=== PATIENT | male | born 1930 | race Caucasian/White ===

== ENCOUNTER → 2016-06-06 | Outpatient (CLI) | payer OTHER, MEDICARE ==
[~2016-06-06] MED LIST: ALPR0.25 PO; AMLO2.5T PO; ANT25 PO; ASPI81TA28 PO; B-COCAP2 PO; B-COTAB18 PO; CHOND PO; COEN1CAP17 PO; ESCI10TA17 PO; FINA5TAB PO; FLUT0.0529 NEB; FLUT0.15 NAE; FLUT50SP14 NAE; GLUCOSAMINE PO; GLUCTAB7 PO; ISOS30TA3 PO; MECL1TAB42 PO; METO25TA56 PO; OMEP40CA41 PO; PRAV20TA PO; PRLSR20 PO; SAW80CAP PO; TAMS0.4C38 PO; XNX25 PO
[2016-06-06 17:24] LABS: URINE APPEARANCE CLEAR (CLEAR); URINE BILIRUBIN NEG (NEG); URINE COLOR DK YELLOW; URINE NITRITE NEG (NEG); URINE SPECIFIC GRAVITY 1.024 (1.000-1.030); UROBILINOGEN NEG (NEG)
[2016-06-06 17:37] LABS: MANUAL MICROSCOPIC REQUIRED? NO; REVIEW REQ? NO
== END | disposition home or self-care (01) ==
LOC: C.LABBC 14:45
PROVIDERS: ATTEND Internal Medicine
DX: M54.5 Low back pain (principal)

== ENCOUNTER → 2016-06-26 | Outpatient (CLI) | payer OTHER, MEDICARE ==
[2016-06-26 11:25] LABS: AST/SGOT 16 U/L (15-37); BLOOD UREA NITROGEN 16 mg/dl (7-18); BUN/CREATININE RATIO 13.1 (10-20); CARBON DIOXIDE 31 mmol/L (21-32); CHLORIDE 110 mmol/L (98-107); ESTIMATED AVERAGE GLUCOSE 128 mg/dl; GLUCOSE 104 mg/dl (70-99); HA1C FLAG Normal (Normal); POTASSIUM 4.6 mmol/L (3.5-5.1); SODIUM 145 mmol/L (136-145)
[2016-06-26 11:35] LABS: ALB/GLOB RATIO 1.4 (0.9-2); ALKALINE PHOSPHATASE 68 U/L (45-117); ALT/SGPT 22 U/L (12-78); CHOLESTEROL 111 mg/dl (0-200); CHOLESTEROL/HDL RATIO 2.2; HDL CHOLESTEROL 50 mg/dl; LDL CHOLESTEROL CALCULATED 47 mg/dl; TRIGLYCERIDES 71 mg/dl (0-150); VERY LOW DENSITY LIPOPROT CALC 14 mg/dl
--- NOTE | 2016-07-02 12:46 | CODING QUERY MEDICAL NECESSITY ---
SUPPORTING DIAGNOSIS NEEDED A supporting diagnosis is required for the test/procedure performed on this patient in order for us to be reimbursed by the patient's insurance. Please provide a supporting diagnosis for the following test/procedure listed below next to the test name along with your signature. *If there is no additional diagnosis for this patient that would support the following test/procedure please document that below next to the test/procedure. Test(s)/Procedure(s) that require a supporting diagnosis: DOS 06/26 * Hba1c DIAGNOSIS: * Lipids DIAGNOSIS: Provider Signature: Date: Thank you Gely Kebede Health Information Management Once completed, please kindly fax back to [phone] For questions please call [phone]
== END | disposition home or self-care (01) ==
LOC: C.LABBC 07:16
PROVIDERS: ATTEND Internal Medicine
DX: E55.9 Vitamin D deficiency, unspecified (principal); R73.9 Hyperglycemia, unspecified; I10 Essential (primary) hypertension

== ENCOUNTER 2016-07-12 04:27 | Emergency (ER) | payer OTHER, MEDICARE ==
[~2016-07-12] VITALS: Ht 185.4 cm; Wt 92.5 kg
[~2016-07-12 04:27] MED LIST changes: -ALPR0.25 PO; -AMLO2.5T PO; -B-COTAB18 PO; -ESCI10TA17 PO; -FINA5TAB PO; -FLUT0.15 NAE; -GLUCTAB7 PO; -ISOS30TA3 PO; -MECL1TAB42 PO; -PRLSR20 PO
[2016-07-12 04:32] VITALS: TEMP 37.6; Ht 185.4 cm; Wt 92.5 kg
[2016-07-12 05:04] VITALS: O2SAT 96
--- NOTE | 2016-07-12 05:23 | EMERGENCY ROOM VISIT NOTE ---
History Report prepared by Alcides: Becca Pollock Under the Supervision of: Dr. Patricia Wright D.O. First contact with patient: 04:47 Chief Complaint: CHEST PAIN Stated Complaint: CHEST PAIN Nursing Triage Summary: see note "i also had alot of gas...i took a gas-x" History of Present Illness The patient is an 86 year old male who presents to the Emergency Room with complaints of intermittent left upper quadrant abdominal pain that began around five hours prior to arrival. He currently rates his discomfort as a 7/10 in severity. The patient states that his pain began around midnight, noting that he did get a little sleep. He states that he took Gas-X prior to going to sleep. The patient associates gas and burping with his symptoms, but denies any nausea or shortness of breath. He notes a history of a pacemaker. The patient states that he has had similar symptoms in the past, but states that today his symptoms lasted longer. He states that he has increased edema to his lower extremities. Source of History: patient Onset: five hours prior to arrival Position: abdomen (LUQ) Symptom Intensity: 7/10 Timing: intermittent Associated Symptoms: No SOB, No nausea Note: Associated symptoms: burping and passing gas, increased edema to his lower extremities. Review of Systems See HPI for pertinent positives & negatives. A total of 10 systems reviewed and were otherwise negative. Past Medical & Surgical Medical Problems: (1) Coronary artery disease (2) Hyperlipidemia (3) Implantation of cardiac pacemaker (4) Rotator cuff surgery (5) Vertigo Family History Cancer Hypertension Lung disease Social History Smoking Status: Never Smoker Alcohol Use: none Drug Use: none Marital Status: Housing Status: lives with significant other Occupation Status: retired Current/Historical Medications Scheduled Amlodipine Besylate (Norvasc), 1 TAB PO DAILY Aspirin (Aspirin Ec), 81 MG PO DAILY B-Complex Vitamins (Vitamin B Complex), 1 TAB PO DAILY Coenzyme Q10 (Ubidecarenone) (Co Q 10), 200 MG PO DAILY Escitalopram (Lexapro), 10 MG PO DAILY Finasteride (Proscar), 5 MG PO DAILY Fluticasone Propionate (Nasal) (Flonase Allergy Relief), 1-2 SPRAYS ESTER DAILY Cpjljsfgfid-Oriesetxiga-Pbz C- (Glucosamine Chondroitin), 1 TAB PO BID Isosorbide Mononitrate Ext Rel (Imdur Ext Rel), 30 MG PO QAM Metoprolol Tartrate (Lopressor) (Lopressor), 25 MG PO BID Omeprazole (Prilosec), 20 MG PO DAILY Pravastatin (Pravachol ), 20 MG PO DAILY [place] (Serenoa Repens) (Saw [place]), 80 MG PO QAM Tamsulosin Hcl (Flomax), 0.4 MG PO DAILY Scheduled PRN Alprazolam (Xanax), 0.25 MG PO DAILY PRN for Anxiety Meclizine Hcl (Meclizine Hcl), 1 TAB PO TID PRN for Dizziness or Vertigo Allergies Coded Allergies: Amoxicillin (Verified Allergy, Unknown, UNKNOWN, 07/12/16) Clavulanic Acid (Verified Allergy, Unknown, UNKNOWN, 07/12/16) Sulfa Drugs (Verified Allergy, Unknown, 07/12/16) Penicillins (Verified Adverse Reaction, Unknown, nausea, 07/12/16) Physical Exam Vital Signs Date Time Temp Pulse Resp B/P Pulse Ox O2 Delivery O2 Flow Rate FiO2 07/12/16 06:32 72 21 95 07/12/16 06:31 169/72 07/12/16 06:02 73 19 95 07/12/16 05:57 80 22 95 07/12/16 05:30 164/80 07/12/16 05:27 74 28 94 07/12/16 05:04 96 Room Air 07/12/16 05:00 161/77 07/12/16 04:57 82 94 07/12/16 04:56 77 07/12/16 04:50 168/87 07/12/16 04:40 95 Room Air 07/12/16 04:32 37.6 64 18 155/82 94 Room Air Physical Exam HEENT: Head - normocephalic and atraumatic Pupils are equal, round, and reactive to light. Extraocular eye muscles are intact, and sclera are anicteric. Nose - moist nasal mucosa without discharge. Mouth - moist buccal mucosa. Oropharynx is nonerythematous and there is no tonsillar exudate or edema noted. Neck: Supple; no JVD, nuchal rigidity, cervical lymphadenopathy. Heart: Regular rate and rhythm. There is a normal S1 and S2 with no murmurs, clicks, or gallops appreciated. Lungs: Clear to auscultation bilaterally with no wheezes, rales, or rhonchi. Abdomen: Soft, completely nontender, nondistended, with good bowel sounds. There are no palpable pulsatile masses or hepatosplenomegaly. There is no guarding, rigidity, or rebound noted. Extremities: 1+ edema in legs. No evidence of cyanosis, clubbing. There are easily palpable peripheral pulses. Skin: warm and dry with good turgor and no rashes. Medical Decision & Procedures Laboratory Results 07/12/16 05:10 Red Blood Count 5.12, Mean Corpuscular Volume 90.6, Mean Corpuscular Hemoglobin 29.1, Mean Corpuscular Hemoglobin Concent 32.1, Mean Platelet Volume 11.9, Neutrophils (%) (Auto) 42.6, Lymphocytes (%) (Auto) 45.2, Monocytes (%) (Auto) 9.2, Eosinophils (%) (Auto) 1.7, Basophils (%) (Auto) 0.5, Neutrophils # (Auto) 2.75, Lymphocytes # (Auto) 2.91, Monocytes # (Auto) 0.59, Eosinophils # (Auto) 0.11, Basophils # (Auto) 0.03 07/12/16 05:10 Test 07/12/16 05:10 07/12/16 05:55 White Blood Count 6.44 K/uL (4.8-10.8) Red Blood Count 5.12 M/uL (4.7-6.1) Hemoglobin 14.9 g/dL (14.0-18.0) Hematocrit 46.4 % (42-52) Mean Corpuscular Volume 90.6 fL (80-100) Mean Corpuscular Hemoglobin 29.1 pg (25-34) Mean Corpuscular Hemoglobin Concent 32.1 g/dl (32-36) Platelet Count 162 K/uL (130-400) Mean Platelet Volume 11.9 fL (7.4-10.4) Neutrophils (%) (Auto) 42.6 % Lymphocytes (%) (Auto) 45.2 % Monocytes (%) (Auto) 9.2 % Eosinophils (%) (Auto) 1.7 % Basophils (%) (Auto) 0.5 % Neutrophils # (Auto) 2.75 K/uL (1.4-6.5) Lymphocytes # (Auto) 2.91 K/uL (1.2-3.4) Monocytes # (Auto) 0.59 K/uL (0.11-0.59) Eosinophils # (Auto) 0.11 K/uL (0-0.5) Basophils # (Auto) 0.03 K/uL (0-0.2) RDW Standard Deviation 45.1 fL (36.4-46.3) RDW Coefficient of Variation 13.5 % (11.5-14.5) Immature Granulocyte % (Auto) 0.8 % Immature Granulocyte # (Auto) 0.05 K/uL (0.00-0.02) Anion Gap 6.0 mmol/L (3-11) Est Creatinine Clear Calc Drug Dose 60.5 ml/min Estimated GFR () 79.6 Estimated GFR (Non- 68.7 BUN/Creatinine Ratio 18.8 (10-20) Calcium Level 8.7 mg/dl (8.5-10.1) Total Bilirubin 0.4 mg/dl (0.2-1) Direct Bilirubin 0.1 mg/dl (0-0.2) Aspartate Amino Transf (AST/SGOT) 19 U/L (15-37) Alanine Aminotransferase (ALT/SGPT) 24 U/L (12-78) Alkaline Phosphatase 70 U/L (45-117) Total Protein 7.1 gm/dl (6.4-8.2) Albumin 4.2 gm/dl (3.4-5.0) Lipase 180 U/L (73-393) Urine Color YELLOW Urine Appearance CLEAR (CLEAR) Urine pH 5.5 (4.5-7.5) Urine Specific [place] 1.016 (1.000-1.030) Urine Protein TRACE (NEG) Urine Glucose (UA) NEG (NEG) Urine Ketones NEG (NEG) Urine Occult Blood NEG (NEG) Urine Nitrite NEG (NEG) Urine Bilirubin NEG (NEG) Urine Urobilinogen NEG (NEG) Urine Leukocyte Esterase NEG (NEG) Urine WBC (Auto) 0 /hpf (0-5) Urine RBC (Auto) 0-4 /hpf (0-4) Urine Hyaline Casts (Auto) 0 /lpf (0-5) Urine Epithelial Cells (Auto) 0-5 /lpf (0-5) Urine Bacteria (Auto) NEG (NEG) Laboratory results per my review. ECG Indication: abdominal pain Rate (beats per minute): 85 Rhythm: other (paced rhythm) Findings: no acute ischemic change, no ectopy ED Course 0456: Past medical records reviewed. The patient was evaluated in room B10. A complete history and physical exam was performed. An IV lock was initiated and labs are drawn as above. A urine specimen was obtained as described above. 0607: I reevaluated the patient and he is feeling well. 0649: I reevaluated the patient and he is doing well. I discussed all the exam findings with him and I discussed the treatment plan. He verbalized complete understanding and agreement. He is ready to go home. Medical Decision The patient is an 86 year old male who presents to the ED with left upper quadrant abdominal pain. Differential diagnosis includes small bowel obstruction , constipation, colitis, diverticulitis, pyelonephritis. Lab interpretation: white count 6.4, stable H&H, glucose 121, normal renal function, normal LFTs and lipase, urinalysis reveals trace protein. Upon presentation to the emergency department, the patient's left upper quadrant abdominal pain seems to subsided. Laboratory workup was essentially negative. The patient was observed here in the emergency department for sometime and had no recurrence of his symptoms. I've asked patient to follow up closely with his PCP. He can return here to the emergency department if the pain returns. Impression Primary Impression: Abdominal pain, left upper quadrant Scribe Attestation The scribe's documentation has been prepared under my direction and personally reviewed by me in its entirety. I confirm that the note above accurately reflects all work, treatment, procedures, and medical decision making performed by me. Departure Information Dispostion Home / Self-Care Referrals Aly Bowling M.D. (PCP) Forms HOME CARE DOCUMENTATION FORM, IMPORTANT VISIT INFORMATION Patient Instructions Abdominal Pain, My [facility] Access Additional Instructions Rest Take a bland diet Return to the ER if symptoms return.
[2016-07-12 05:33] LABS: BASO % 0.5 %; BASO ABS # 0.03 K/uL (0-0.2); COMPLETE YES; EOS % 1.7 %; HEMATOCRIT 46.4 % (42-52); IG% 0.8 %; LYMPH % 45.2 %; LYMPH ABS # 2.91 K/uL (1.2-3.4); MEAN CELL VOLUME 90.6 fL (80-100); MEAN CORPUSCULAR HEMOGLOBIN 29.1 pg (25-34); MEAN CORPUSCULAR HGB CONC 32.1 g/dl (32-36); MEAN PLATELET VOLUME 11.9 fL (7.4-10.4); MONO % 9.2 %; NEUT % 42.6 %; PLATELET COUNT 162 K/uL (130-400); RED BLOOD COUNT 5.12 M/uL (4.7-6.1); WHITE BLOOD COUNT 6.44 K/uL (4.8-10.8)
[2016-07-12 05:51] LABS: BUN/CREATININE RATIO 18.8 (10-20); CALCIUM 8.7 mg/dl (8.5-10.1); CREATININE 0.99 mg/dl (0.60-1.40); POTASSIUM 4.2 mmol/L (3.5-5.1)
[2016-07-12] MEDS ORDERED: PRLSR20 PO (05:52)
[2016-07-12] MEDS ORDERED: ALPR0.25 PO (05:52)
[2016-07-12] MEDS ORDERED: SAW80CAP PO (05:52)
[2016-07-12] MEDS ORDERED: MECL1TAB42 PO (05:52)
[2016-07-12] MEDS ORDERED: ISOS30TA3 PO (05:54)
[2016-07-12] MEDS ORDERED: FINA5TAB PO (05:54)
[2016-07-12] MEDS ORDERED: B-COTAB18 PO (05:54)
[2016-07-12] MEDS ORDERED: ESCI10TA17 PO (05:54)
[2016-07-12] MEDS ORDERED: FLUT0.15 NAE (05:54)
[2016-07-12] MEDS ORDERED: AMLO2.5T PO (05:54)
[2016-07-12] MEDS ORDERED: GLUCTAB7 PO (05:55)
[2016-07-12 06:31] VITALS: BP 169/72
[2016-07-12 06:32] VITALS: PULSE 72; O2SAT 95
[2016-07-12 06:35] LABS: URINE APPEARANCE CLEAR (CLEAR); URINE BILIRUBIN NEG (NEG); URINE COLOR YELLOW; URINE EPITHELIAL CELL AUTO 0-5 /lpf (0-5); URINE NITRITE NEG (NEG); URINE PH 5.5 (4.5-7.5); URINE SPECIFIC GRAVITY 1.016 (1.000-1.030); UROBILINOGEN NEG (NEG)
[2016-07-12 06:40] LABS: MANUAL MICROSCOPIC REQUIRED? NO; REVIEW REQ? NO
== END 2016-07-12 06:52 | disposition home or self-care (01) ==
LOC: C.EDB 04:28
DX: R10.12 Left upper quadrant pain (principal); Z83.3 Family history of diabetes mellitus; Z82.49 Family history of ischemic heart disease and other diseases of the circulatory system

== ENCOUNTER → 2017-07-02 | Outpatient (CLI) | payer OTHER, MEDICARE ==
[~2017-07-02] MED LIST changes: +ALPR0.25 PO; +AMLO2.5T PO; -ANT25 PO; -B-COCAP2 PO; +B-COTAB18 PO; -CHOND PO; +ESCI10TA17 PO; +FINA5TAB PO; -FLUT0.0529 NEB; +FLUT0.15 NAE; -FLUT50SP14 NAE; -GLUCOSAMINE PO; +GLUCTAB7 PO; +ISOS30TA3 PO; +MECL1TAB42 PO; -OMEP40CA41 PO; +PRLSR20 PO; -XNX25 PO
[2017-07-02 10:36] LABS: BASO % 0.6 %; BASO ABS # 0.04 K/uL (0-0.2); EOS % 3.1 %; EOS ABS # 0.22 K/uL (0-0.5); HEMATOCRIT 48.5 % (42-52); HEMOGLOBIN 15.5 g/dL (14.0-18.0); IG# 0.05 K/uL (0.00-0.02); LYMPH % 47.8 %; LYMPH ABS # 3.42 K/uL (1.2-3.4); MEAN CELL VOLUME 92.2 fL (80-100); MEAN CORPUSCULAR HEMOGLOBIN 29.5 pg (25-34); MEAN PLATELET VOLUME 12.2 fL (7.4-10.4); MONO % 10.2 %; MONO ABS # 0.73 K/uL (0.11-0.59); NEUT % 37.6 %; PLATELET COUNT 175 K/uL (130-400); RED CELL DISTRIBUTION WIDTH CV 13.4 % (11.5-14.5); RED CELL DISTRIBUTION WIDTH SD 45.2 fL (36.4-46.3); WHITE BLOOD COUNT 7.16 K/uL (4.8-10.8)
[2017-07-02 11:05] LABS: HEMOGLOBIN A1C 6.1 % (4.5-5.6)
[2017-07-02 11:06] LABS: ALT/SGPT 22 U/L (12-78); AST/SGOT 19 U/L (15-37); BLOOD UREA NITROGEN 18 mg/dl (7-18); CALCIUM 8.7 mg/dl (8.5-10.1); CARBON DIOXIDE 30 mmol/L (21-32); CREATININE 1.27 mg/dl (0.60-1.40); GLUCOSE 114 mg/dl (70-99); POTASSIUM 4.6 mmol/L (3.5-5.1); SODIUM 140 mmol/L (136-145)
[2017-07-02 11:17] LABS: ALKALINE PHOSPHATASE 67 U/L (45-117); CHOLESTEROL 91 mg/dl (0-200); LDL CHOLESTEROL CALCULATED 33 mg/dl; TOTAL PROTEIN 7.2 gm/dl (6.4-8.2)
== END | disposition home or self-care (01) ==
LOC: C.LABBC 07:28
PROVIDERS: ATTEND Internal Medicine
DX: I10 Essential (primary) hypertension (principal); E78.1 Pure hyperglyceridemia; K21.9 Gastro-esophageal reflux disease without esophagitis; I73.9 Peripheral vascular disease, unspecified; E55.9 Vitamin D deficiency, unspecified; I25.10 Atherosclerotic heart disease of native coronary artery without angina pectoris; R73.9 Hyperglycemia, unspecified; R53.83 Other fatigue

== ENCOUNTER → 2017-09-23 | Outpatient (CLI) | payer OTHER, MEDICARE ==
--- NOTE | 2017-09-23 15:00 | DIAGNOSTIC IMAGING REPORT ---
LUMBAR SPINE WITHOUT HISTORY: 87 years-old Male LOW BACK PAIN acute low back pain COMPARISON: CT abdomen and pelvis 10/04/2015 TECHNIQUE: Multiple axial CT images of the lumbar spine were obtained without the use of IV contrast. A dose lowering technique was used consistent with the principals of ALARA. FINDINGS: Bones appear least mildly demineralized. Chondrocalcinosis involves several the disc spaces. Moderate degenerative changes of the SI joints. No sacral or iliac fracture identified. No acute fracture or subluxation identified. Transverse processes and imaged ribs appear intact. Imaged lung bases appear generally clear. Probable cyst of the posterior interpolar right kidney, 1.6 cm. Atherosclerosis of the aorta without aneurysm. T12-L1: Mild intervertebral disc space narrowing and mild facet arthrosis. No central canal or foraminal narrowing. L1-L2: Mild intervertebral disc space narrowing and spondylitic spurring with small posterior disc bulge. Mild facet arthrosis is also present. No central canal or foraminal narrowing. L2-L3: Mild spondylitic spurring with circumferential annular disc bulge, mild facet arthrosis and ligamentum flavum thickening. Flattening of the ventral thecal sac without significant central canal or foraminal narrowing. L3-L4: Circumferential disc osteophyte complex formation with moderate facet arthrosis and ligament of flavum thickening. These findings cause mild central canal and mild bilateral foraminal stenosis. L4-L5: Spondylotic spurring with circumferential annular disc bulge, moderate facet arthropathy and ligament of flavum thickening. Thecal sac is narrowed to 6 mm in AP dimension resulting in moderate to severe central canal, moderate to severe right and mild to moderate left foraminal narrowing. L5-S1: Spondylotic spurring with posterior disc bulge, moderate facet arthrosis and ligamentum flavum thickening. Flattening of the ventral thecal sac without significant central canal stenosis. Mild bilateral foraminal narrowing. IMPRESSION: 1. No acute fracture or subluxation of the lumbar spine. 2. Multilevel discogenic degenerative changes and facet arthropathy as above. At L4-L5, there is moderate to severe central canal, moderate to severe right and mild to moderate left foraminal narrowing. 3. Additional findings as above. The above report was generated using voice recognition software. It may contain grammatical, syntax or spelling errors. Electronically signed by: Vimal Marvin M.D. 09/23/2017 2:59 PM Dictated Date/Time: 09/23/2017 2:52 PM
== END | disposition home or self-care (01) ==
LOC: C.CTS 14:00
PROVIDERS: ATTEND Family Medicine
DX: M54.5 Low back pain (principal); M46.96 Unspecified inflammatory spondylopathy, lumbar region

== ENCOUNTER 2019-06-30 14:06 | Inpatient (IN) ==
[2019-06-30] MEDS ORDERED: SODIUM CHLORIDE 0.9% 1000ML 1,000 ML IV SCH (14:15)
--- NOTE | 2019-06-30 14:16 | Emergency Department Note ---
Impression & Plan Acute CVA (cerebrovascular accident), Slurring of speech, Ambulatory dysfunction ED Provider Note NAME: FRANSISCO BROWN JR AGE: 89 SEX: M : 1930 ARRIVES VIA: Ambulance INFORMANT: Patient, ED PROVIDER(S): Jonnathan Nunez DO CHIEF COMPLAINT: Weakness HPI: Patient is a 9-year-old male with a past medical history of CVA that presents the ER for slurred speech right-sided facial droop and trouble ambulating which is been present since he woke up this morning. Last known well was last night prior to going to bed around 9 PM. He notes that last night he had a mild headache. When he woke up this morning he noticed some numbness in his left jama but that has now resolved. He denies any other complaints. No trouble eating or drinking. No trouble swallowing. No weakness or numbness currently. He denies any chest pain, shortness of breath, change in vision, nausea, vomiting or diarrhea. No dysuria urgency or frequency. ROS: See above HPI for pertinent positives & negatives. A total of 10 systems reviewed and were otherwise negative. PAST MEDICAL HISTORY:See Below PAST SURGICAL HISTORY:See Below FAMILY HISTORY:See Below SOCIAL HISTORY:See Below HOME MEDICATIONS:See Below ALLERGIES:See Below VITALS:See Below PHYSICAL EXAMINATION: GENERAL: Sitting up in bed, alert, well appearing, well nourished, no distress, non-toxic EYE EXAM: normal conjunctiva. PERRL and EOM's intact. OROPHARYNX: no exudate, no erythema, lips, buccal mucosa, and tongue normal and mucous membranes are moist NECK: supple, no nuchal rigidity, no adenopathy, non-tender LUNGS: Clear to auscultation. Normal chest wall mechanics HEART: no murmurs, S1 normal and S2 normal ABDOMEN: abdomen soft, non-tender, normo-active bowel sounds, no masses, no rebound or guarding. BACK: Back is symmetrical on inspection and there is no deformity, no midline tenderness, no CVA tenderness. SKIN: no rashes and no bruising UPPER EXTREMITIES: upper extremities are grossly normal. LOWER EXTREMITIES: No pitting edema. NEURO EXAM: Normal sensorium, cranial nerves II-XII intact, normal speech, no weakness of arms, no weakness of legs. No drift. Finger to nose intact. Gross se nsation intact. MEDICAL DECISION MAKING: Patient is an 89-year-old male with a past medical history of a CVA about 4 years ago that presents the ER for headache which started last night. He went to bed and when he woke up he had slurred speech and right-sided facial droop. He also noted some tingling in his left calf but that has not resolved. He denies any other complaints at this time. He has no headache or change in vision. No chest pain shortness of breath nausea vomiting or diarrhea. No weakness or numbness that he is aware of. I received medical command: This gentleman and did not stroke alert him due to the timeframe of the symptoms starting when he woke up this morning. IV was established blood work was obtained and shows no significant leukocytosis or anemia. INR was unremarkable. BMP with a slightly elevated BUN at 20. Glucose was slightly elevated at 123. LFTs bilirubin and troponin was negative. Patient was typed and screened. Patient CT of the head, angios of the head and neck show left sylvian MCA branch occlusion. This was discussed with [facility] tele-stroke neurology. As his symptoms started at some point last night when he was sleeping he is not interventional candidate and is not a TPA candidate. Patient was updated be dside. Discussed case with our hospitalist. Patient was given aspirin and fluids. Patient was admitted for further work-up of his CVA. Of note he is still fairly off balance with ambulation. Triage Nursing notes reviewed. Prior medical records reviewed Vital Signs: reviewed and remarkable for hypertension Differential diagnosis: Differential Diagnosis includes but is not limited to ischemic Stroke, hemorrhagic stroke, bells palsy, mass, neoplasm, migraine headache, seizure, subarachnoid hemorrhage, TIA, and transient global amnesia. ER treatment provided: See below Diagnostics interpreted by me: ECG: Atrial sensed ventricularly paced rate of 72 Left axis T WI in aVL Left bundle branch block No PVCs Cardiac Monitoring: An order was placed for continuous cardiac monitoring. The monitor shows a rate of paced rhythm rate of 82. Laboratory studies: As stated above and show below. Imaging studies: Portable AP upright 1 view of the chest shows no focal infiltrate. CT of the head was negative. CT angios the head and neck shows left sylvian branch of the MCA with an occlusion. Consultation(s): Discussed with Dr. dion Moeller tele-stroke neurology who notes the patient is not a candidate for TPA or intervention at this time. 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 (Chronic) Coronary artery disease (Chronic 11/09/12) Essential hypertriglyceridemia (Chronic) Fatigue (Chronic) Gastroesophageal reflux disease (Chronic) Hearing loss (Chronic) Hyperglycemia (Chronic) Hyperlipidemia (Chronic 11/09/12) Hypertension (Chronic) Low back pain (Chronic) Miliaria, apocrine Nocturia (Chronic) Nonocclusive coronary atherosclerosis of [place] coronary artery (Chronic) PAD (peripheral artery disease) (Chronic) Parotiditis (Inactive) Sick sinus syndrome (Chronic) Sleep related hypoxia (Chronic) Spinal stenosis of lumbar region without neurogenic claudication (Chronic) Vertigo (Chronic 11/09/12) Vitamin D deficiency (Chronic) Surgical History H/O rotator cuff surgery (11/09/12) History of carotid endarterectomy History of colonoscopy History of heart surgery History of permanent cardiac pacemaker placement S/P rotator cuff repair Family History Unknown Bladder cancer Father Pneumonia Mother Stroke syndrome Brother Prostate cancer Lung cancer Osteogenesis imperfecta Son No problems noted. Social History Preferred Language: Turkmen Communication Ability: Effective Crocheter Hand Required: No Beliefs That Will Affect Care: None Current Living Situation: Spouse Feels Safe at Home: Yes Smoking Status: Never smoker Second Hand Exposure: No ; Hx Alcohol Use: No Hx Substance Use: No Allergies Allergies Allergy/AdvReac Type Severity Reaction Status Date / Time clavulanic acid Allergy Unknown UNKNOWN Verified 06/30/19 15:57 Sulfa (Sulfonamide Allergy Unknown Unknown Verified 06/30/19 15:57 Antibiotics) amoxicillin AdvReac Intermediate NAUSEA Unverified 06/30/19 15:57 Penicillins AdvReac Intermediate NAUSEA/VOMI Verified 06/30/19 15:57 TING Home Meds Home Medications Medication Instructions Recorded Confirmed amlodipine 2.5 mg tablet 2.5 mg PO DAILY 10/06/18 06/30/19 cholecalciferol (vitamin D3) 25 1,000 units PO DAILY 10/06/18 06/30/19 mcg (1,000 unit) capsule coenzyme Q10 200 mg capsule 200 mg PO DAILY 10/06/18 06/30/19 glucosamine HCl 1,500 mg tablet 1,500 mg PO DAILY 10/06/18 06/30/19 metoprolol tartrate 25 mg tablet 25 mg PO BID 10/06/18 06/30/19 vitamin B comp and C no.3 15 mg-10 1 cap PO DAILY 10/06/18 06/30/19 mg-50 mg-5 mg-300 mg capsule alprazolam 0.25 mg tablet 0.25 mg PO DAILY PRN 01/14/19 06/30/19 meclizine 25 mg tablet 25 mg PO DAILY PRN 01/14/19 06/30/19 pygeum africanum 50 mg capsule 100 mg PO DAILY cap 01/14/19 06/30/19 vitamin K2 40 mcg tablet 0 mcg PO DAILY 01/14/19 06/30/19 Turmeric Circumin 500 mg PO DAILY 06/30/19 06/30/19 calcium citrate 500 mg PO DAILY 06/30/19 06/30/19 isosorbide mononitrate 30 mg PO DAILY 06/30/19 06/30/19 magnesium [id number] 1 tab PO DAILY 06/30/19 06/30/19 Previous Rx's Medication Instructions Recorded fluticasone propionate 50 1 sprays INTNAS DAILY PRN #18.2 gm 10/29/18 mcg/actuation nasal spray,suspension tamsulosin 0.4 mg capsule 0.4 mg PO DAILY #90 cap 10/29/18 escitalopram oxalate 10 mg tablet 15 mg PO DAILY #45 tab 02/16/19 pravastatin 20 mg tablet 20 mg PO DAILY #90 tab 05/03/19 omeprazole 20 mg capsule,delayed 20 mg PO DAILY #90 cap 05/27/19 release Results & Data (ED) Vital Signs Vital Signs - 24 hr 06/30/19 14:14 Temperature 37 C Temperature Source Oral Pulse Rate 72 Pulse Rhythm Regular Pulse Strength Normal Respiratory Rate 16 Respiratory Effort / Characteristics Non-Labored Spontaneous Respiratory Depth Normal Respiratory Pattern Regular Blood Pressure 128/66 Blood Pressure Mean 86 Pulse Oximetry 95 Oxygen Delivery Method Room Air Sepsis Recent Fever Within 48 Hours No Sepsis New/Unexplained Change in Mental Status No Sepsis Action Taken by Nursing No Action Required Laboratory Data Result diagrams: 06/30/19 14:20 06/30/19 14:20 Lab Results 06/30/19 06/30/19 06/30/19 Range/Units 14:20 14:20 14:20 WBC 10.34 (4.8-10.8) K/uL RBC 4.88 (4.7-6.1) M/uL Hgb 13.9 L (14.0-18.0) g/dL POC Hgb (14.0-18.0) g/dl Hct 44.8 (42-52) % POC Hct (42-52) % MCV 91.8 (80-100) fL MCH 28.5 (25-34) pg MCHC 31.0 L (32-36) g/dL RDW Std Deviation 45.9 (36.4-46.3) fL RDW Coeff of Jose 13.6 (11.5-14.5) % Plt Count 189 (130-400) K/uL MPV 12.4 H (7.4-10.4) fL Immature Gran % (Auto) 0.7 % Neut % (Auto) 54.9 % Lymph % (Auto) 35.7 % Dixon % (Auto) 7.4 % Eos % (Auto) 0.9 % Baso % (Auto) 0.4 % Immature Gran # (Auto) 0.07 H (0.00-0.02) K/uL Neut # (Auto) 5.68 (1.4-6.5) K/uL Lymph # (Auto) 3.69 H (1.2-3.4) K/uL Dixon # (Auto) 0.77 H (0.11-0.59) K/uL Eos # (Auto) 0.09 (0-0.5) K/uL Baso # (Auto) 0.04 (0-0.2) K/uL PT 10.9 (9.0-12.0) Seconds INR 1.0 (0.9-1.1) APTT 25.6 (21.0-31.0) Seconds PTT Ratio 0.9 POC Sodium (135-144) mmol/L Sodium 137 (136-145) mmol/L POC Potassium (3.3-5.0) mmol/L Potassium 4.3 (3.5-5.1) mmol/L POC Chloride (101-112) mmol/L Chloride 107 (98-107) mmol/L Carbon Dioxide 27 (21-32) mmol/L POC Total CO2 (24-31) mEq/l Anion Gap 3.0 (3-11) POC Anion Gap (16-25) mmol/L POC BUN (7-18) mg/dl BUN 20 H (7-18) mg/dl Creatinine 1.22 (0.6-1.4) mg/dl POC Creatinine (0.6-1.3) mg/dl Est Cr Clr Drug Dosing 45.1 ml/min Est GFR ( Amer) 60.5 Est GFR (Non-Af Amer) 52.2 BUN/Creatinine Ratio 16.5 (10-20) Glucose 130 H (70-99) mg/dl POC Glucose (70-99) mg/dl POC Glucose (other) (70-99) mg/dl Calcium 8.6 (8.5-10.1) mg/dl POC Ioniz Calcium Sue (1.12-1.32) mmol/l Magnesium 1.8 (1.8-2.4) mg/dl Total Bilirubin 0.3 (0.2-1) mg/dl AST 20 (15-37) U/L ALT 22 (12-78) U/L Alkaline Phosphatase 60 (45-117) U/L Troponin I < 0.015 (0-0.045) ng/ml Total Protein 6.8 (6.4-8.2) gm/dl Albumin 3.8 (3.4-5.0) gm/dl Globulin 3.0 (2.5-4.0) gm/dl Albumin/Globulin Ratio 1.3 (0.9-2) Specimen Hemolysis Blood Type Antibody Screen 06/30/19 06/30/19 06/30/19 Range/Units 14:23 14:24 14:44 WBC (4.8-10.8) K/uL RBC (4.7-6.1) M/uL Hgb (14.0-18.0) g/dL POC Hgb 14.6 (14.0-18.0) g/dl Hct (42-52) % POC Hct 43 (42-52) % MCV (80-100) fL MCH (25-34) pg MCHC (32-36) g/dL RDW Std Deviation (36.4-46.3) fL RDW Coeff of Jose (11.5-14.5) % Plt Count (130-400) K/uL MPV (7.4-10.4) fL Immature Gran % (Auto) % Neut % (Auto) % Lymph % (Auto) % Dixon % (Auto) % Eos % (Auto) % Baso % (Auto) % Immature Gran # (Auto) (0.00-0.02) K/uL Neut # (Auto) (1.4-6.5) K/uL Lymph # (Auto) (1.2-3.4) K/uL Dixon # (Auto) (0.11-0.59) K/uL Eos # (Auto) (0-0.5) K/uL Baso # (Auto) (0-0.2) K/uL PT (9.0-12.0) Seconds INR (0.9-1.1) APTT (21.0-31.0) Seconds PTT Ratio POC Sodium 139 (135-144) mmol/L Sodium (136-145) mmol/L POC Potassium 4.4 (3.3-5.0) mmol/L Potassium (3.5-5.1) mmol/L POC Chloride 101 (101-112) mmol/L Chloride (98-107) mmol/L Carbon Dioxide (21-32) mmol/L POC Total CO2 27 (24-31) mEq/l Anion Gap (3-11) POC Anion Gap 16.0 (16-25) mmol/L POC BUN 22 H (7-18) mg/dl BUN (7-18) mg/dl Creatinine (0.6-1.4) mg/dl POC Creatinine 1.2 (0.6-1.3) mg/dl Est Cr Clr Drug Dosing ml/min Est GFR ( Amer) Est GFR (Non-Af Amer) BUN/Creatinine Ratio (10-20) Glucose (70-99) mg/dl POC Glucose 123 H (70-99) mg/dl POC Glucose (other) 130 H (70-99) mg/dl Calcium (8.5-10.1) mg/dl POC Ioniz Calcium Sue 1.16 (1.12-1.32) mmol/l Magnesium (1.8-2.4) mg/dl Total Bilirubin (0.2-1) mg/dl AST (15-37) U/L ALT (12-78) U/L Alkaline Phosphatase (45-117) U/L Troponin I (0-0.045) ng/ml Total Protein (6.4-8.2) gm/dl Albumin (3.4-5.0) gm/dl Globulin (2.5-4.0) gm/dl Albumin/Globulin Ratio (0.9-2) Specimen Hemolysis Blood Type O Positive Antibody Screen NEGATIVE Administered Medications Discontinued Medications Aspirin (Aspirin) 324 mg PO NOW STA Stop: 06/30/19 15:25 Last Admin: 06/30/19 15:39 Dose: 324 mg Documented by: [id number] Sodium Chloride (Nss 1000ml) 1,000 mls @ 50 mls/hr IV .Q20H ROSEMARY Stop: 07/30/19 14:14 Last Infusion: 06/30/19 16:52 Dose: 0 mls/hr Documented by: [id number] Admin: 06/30/19 15:00 Dose: 50 mls/hr Documented by: [id number] Ioversol (Optiray 320 125ml) 120 ml IV ONCE PRN PRN Reason: Interaction Checking Stop: 07/04/19 14:49 Last Admin: 06/30/19 14:51 Dose: 120 ml Documented by: [id number] Discharge Plan Visit Data *Final* Discharge Date/Time: 06/30/19 16:38 Chief Complaint: Stroke/CVA Symptoms ED Provider: Jonnathan Nunez Discharge Problem: Acute CVA (cerebrovascular accident), Slurring of speech, Ambulatory dysfunction Patient Disposition: Admitted As Inpatient Discharge Instructions Interventions: ED Discharge Assessment Last Done: 06/30/19 16:38
--- NOTE | 2019-06-30 14:24 | XRay Report ---
XR chest 1V portable CLINICAL HISTORY: Cerebrovascular accident. COMPARISON STUDY: Chest radiograph July 13, 2018. FINDINGS: Dual lead left subclavian pacemaker is in place. Cardiomediastinal silhouette is stable. Th ere is no evidence for pulmonary edema. There is no consolidation. No pneumothorax or pleural effusio n is noted. IMPRESSION: No acute cardiopulmonary findings. ACT 112: Negative or not required by law. Electronically signed by: Raza Godinez M.D. 06/30/2019 2:23 PM
[2019-06-30 14:36] LABS: iSTAT Creatinine 1.2 mg/dl (0.6-1.3); iSTAT Hemoglobin 14.6 g/dl (14.0-18.0); iSTAT Ionized Calcium 1.16 mmol/l (1.12-1.32); iSTAT Potassium 4.4 mmol/L (3.3-5.0)
[2019-06-30 14:42] LABS: Basophils # (auto) 0.04 K/uL (0-0.2); Basophils % (auto) 0.4 %; Eosinophils # (auto) 0.09 K/uL (0-0.5); Eosinophils % (auto) 0.9 %; Hematocrit (blood only) 44.8 % (42-52); Hemoglobin 13.9 g/dL (14.0-18.0); Immature Granulocytes # (auto) 0.07 K/uL (0.00-0.02); Immature Granulocytes % (auto) 0.7 %; Lymphocytes # (auto) 3.69 K/uL (1.2-3.4); Lymphocytes % (auto) 35.7 %; Mean Corpuscular Hemoglobin 28.5 pg (25-34); Mean Corpuscular Volume 91.8 fL (80-100); Mean Platelet Volume 12.4 fL (7.4-10.4); Monocytes # (auto) 0.77 K/uL (0.11-0.59); Monocytes % (auto) 7.4 %; Neutrophils # (auto) 5.68 K/uL (1.4-6.5); Neutrophils % (auto) 54.9 %; Platelet Count 189 K/uL (130-400); RDW Coefficient of Variation 13.6 % (11.5-14.5); RDW Standard Deviation 45.9 fL (36.4-46.3); Red Blood Count 4.88 M/uL (4.7-6.1); White Blood Count 10.34 K/uL (4.8-10.8)
--- NOTE | 2019-06-30 14:47 | CT Scan Report ---
CT OF THE HEAD WITHOUT CONTRAST CLINICAL HISTORY: Stroke evaluation COMPARISON STUDY: Head CT October 10, 2014. CT DOSE: 729.78 mGycm TECHNIQUE: Helical axial images of the head were obtained without IV contrast. Automated exposure con trol was utilized for the study. A dose lowering technique was utilized adhering to the principles o f ALARA. FINDINGS: No acute intracranial hemorrhage, midline shift or mass effect is present. Ventricular syst em is unremarkable. The basilar cisterns are patent. There are no extra-axial collections. Extensive white matter hypodensities are similar to prior exam of October 10, 2014 and suggest small vessel disea se. There are no findings to suggest acute dural sinus thrombosis or acute territorial infarct. There are no significant calvarial abnormalities. There is mild ethmoid sinus mucosal thickening. IMPRESSION: 1. No acute intracranial findings. 2. Extensive small vessel disease. ACT 112: Negative or not required by law. Electronically signed by: Raza Godinez M.D. 06/30/2019 2:45 PM
[2019-06-30] MEDS ORDERED: OPTIRAY 320 125ml IV PRN (14:50)
--- NOTE | 2019-06-30 14:54 | CT Scan Report ---
CT angio neck with con HISTORY: Mental status change Stroke evaluation TECHNIQUE: Multiaxial CT angiography of the neck was performed IV contrast: 100 cc nonionic All cheyanne urements were calculated based on NASCET criteria. Maximum intensity projection images were also obt ained. A dose lowering technique was utilized adhering to the principles of ALARA. COMPARISON STUDY: None. FINDINGS: The aortic arch and proximal great vessels are widely patent. There is no significant sten osis, occlusion, or dissection identified within the bilateral common carotid, internal carotid, or v ertebral arteries. There is a 50% narrowing origin left internal carotid artery. The vertebrobasilar system is unremarkable IMPRESSION: 1. Moderate 50% narrowing origin left internal carotid artery. 2. Otherwise negative study. 3. No evidence for high-grade or critical stenotic process. ACT 112: Negative or not required by law. The above report was generated using voice recognition software. It may contain grammatical, syntax or spelling errors. Electronically signed by: Hever Shaffer M.D. 06/30/2019 2:52 PM
--- NOTE | 2019-06-30 15:03 | CT Scan Report ---
CTA ANGIOGRAPHY OF THE HEAD CLINICAL HISTORY: Stroke evaluation COMPARISON STUDY: Head CT October 10, 2014. CT of the head with and without contrast June 14, 2014. TECHNIQUE: Helical axial images of the head were obtained following uneventful intravenous administr ation of 120 cc of Optiray 320. Sagittal and coronal reconstructions were viewed as well as maximal i ntensity projections on an independent 3-D workstation. Automated exposure control was utilized for the study. A dose lowering technique was utilized adhering to the principles of ALARA. FINDINGS: There is a suspected stenosis versus short segment occlusion within a sylvian branch of the left middle cerebral artery shown on axial image 156 of 278. No additional stenoses within the intra cranial vessels are noted. The left vertebral artery is dominant. There is no intracranial aneurysm. There is no dissection within the intracranial vessels. No acute intracranial hemorrhage, midline qasim ft or mass effect is present. Ventricular system is stable. Basilar cisterns are patent. There are no extra axial collections. Extensive white matter hypodensity suggests small vessel disease. IMPRESSION: 1. Suspected severe stenosis versus short segment occlusion within a sylvian branch of the left middl e cerebral artery. 2. Otherwise, unremarkable CTA of the head. ACT 112: Negative or not required by law. Electronically signed by: Raza Godinez M.D. 06/30/2019 3:01 PM
[2019-06-30 15:04] LABS: Alanine Aminotransferase 22 U/L (12-78); Albumin Globulin Ratio 1.3 (0.9-2); Albumin Level 3.8 gm/dl (3.4-5.0); Alkaline Phosphatase 60 U/L (45-117); Aspartate Aminotransferase 20 U/L (15-37); BUN Creatinine Ratio 16.5 (10-20); Bilirubin,Total 0.3 mg/dl (0.2-1); Blood Urea Nitrogen 20 mg/dl (7-18); Calcium 8.6 mg/dl (8.5-10.1); Carbon Dioxide 27 mmol/L (21-32); Chloride 107 mmol/L (98-107); Creatinine Clr Calc Pharmacy 45.1 ml/min; Est GFR (African American) 60.5; Est GFR (Non-African American) 52.2; Glucose 130 mg/dl (70-99); Magnesium 1.8 mg/dl (1.8-2.4); Potassium 4.3 mmol/L (3.5-5.1); Sodium 137 mmol/L (136-145); Total Protein 6.8 gm/dl (6.4-8.2); Troponin I < 0.015 ng/ml (0-0.045)
[2019-06-30 15:06] LABS: Partial Thromboplastin Ratio 0.9; Partial Thromboplastin Time 25.6 Seconds (21.0-31.0); Prothrombin Time 10.9 Seconds (9.0-12.0)
[2019-06-30] MEDS ORDERED: ASPIRIN CHEW 324 MG PO STA (15:24)
--- NOTE | 2019-06-30 16:01 | History & Physical Report ---
Date of Service June 30, 2019 Assessment & Plan (1) CVA (cerebral vascular accident): Patient presents with a intermittent deficit which is resolved which was with headache and possibly some left jama numbness. Patient given a full dose aspirin. A telephone stroke consult is undertaken per the ER doctor without any recommendations for intervention. He was certainly outside of the time window for thrombolytic therapy. Patient be started and continued on aspirin therapy. His statin will be changed to atorvastatin 40. His antihypertensives will be amended to allow for permissive hypertension and intravenous little be given for 1 L. Because of the patient's pacemaker an MRI would not be ordered we will repeat a CT of the brain on 06/30. Patient will have neurology evaluation PT OT and speech evaluation. His past my bedside swallowing evaluation in the ER and will be given a regular diet at this time CT angiogram of brain 06/30/19 IMPRESSION: 1. 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 2. Otherwise, unremarkable CTA of the head. CT angiogram of neck moderate 50% narrowing of left ICA CT head non contrast negative for acute changes (2) Benign prostatic hyperplasia with urinary obstruction: Patient had no prehospital symptoms he will continue on Flomax therapy (3) Coronary artery disease: Patient be maintained on his regular dose of isosorbide mononitrate. His metoprolol will be reduced from 25 twice daily to 12.5 twice daily. His other antihypertensive medication, amlodipine, will be held at this time will likely restart at the time of discharge (4) Hypertension: Patient will be allowed permissive hypertension as above (5) Sick sinus syndrome: Patient is a left chest pacemaker he is paced on monitor patient is unaware whether this is an MRI compatible pacemaker (6) Depression: Patient exhibits no physiological signs or symptoms of depression at this point time but will be maintained on his Lexapro therapy. (7) DVT prophylaxis: Patient will be on Lovenox DVT prevention History of Present Illness Primary Care Provider: Aly Bowling MD 89 yo male with a past medical history of CVA that presents the ER for slurred speech right-sided facial droop and trouble ambulating which is been present since he woke up this morning. Last known well was last night prior to going to bed around 9 PM. He notes that last night he had a mild headache. When he woke up this morning he noticed some numbness in his left jama but that has now resolved. He denies any other complaints. Patient feels he is returned to his baseline. He feels he may also have slightly asymmetric smile at his baseline. Patient denies any other recent health changes or health problems. He will be brought to the hospital for the non-TPA stroke protocol. Allergies Allergy/AdvReac Type Severity Reaction Status Date / Time clavulanic acid Allergy Unknown UNKNOWN Verified 06/30/19 15:57 Sulfa (Sulfonamide Allergy Unknown Unknown Verified 06/30/19 15:57 Antibiotics) amoxicillin AdvReac Intermediate NAUSEA Unverified 06/30/19 15:57 Penicillins AdvReac Intermediate NAUSEA/VOMI Verified 06/30/19 15:57 TING Home Medications Home Medications Medication Instructions Recorded Confirmed Type amlodipine 2.5 mg tablet 2.5 mg PO DAILY 10/06/18 06/30/19 History cholecalciferol (vitamin D3) 25 1,000 units PO DAILY 10/06/18 06/30/19 History mcg (1,000 unit) capsule coenzyme Q10 200 mg capsule 200 mg PO DAILY 10/06/18 06/30/19 History glucosamine HCl 1,500 mg tablet 1,500 mg PO DAILY 10/06/18 06/30/19 History metoprolol tartrate 25 mg tablet 25 mg PO BID 10/06/18 06/30/19 History vitamin B comp and C no.3 15 mg-10 1 cap PO DAILY 10/06/18 06/30/19 History mg-50 mg-5 mg-300 mg capsule fluticasone propionate 50 1 sprays INTNAS DAILY PRN #18.2 gm 10/29/18 06/30/19 Rx mcg/actuation nasal spray,suspension tamsulosin 0.4 mg capsule 0.4 mg PO DAILY #90 cap 10/29/18 06/30/19 Rx alprazolam 0.25 mg tablet 0.25 mg PO DAILY PRN 01/14/19 06/30/19 History meclizine 25 mg tablet 25 mg PO DAILY PRN 01/14/19 06/30/19 History pygeum africanum 50 mg capsule 100 mg PO DAILY cap 01/14/19 06/30/19 History vitamin K2 40 mcg tablet 0 mcg PO DAILY 01/14/19 06/30/19 History escitalopram oxalate 10 mg tablet 15 mg PO DAILY #45 tab 02/16/19 06/30/19 Rx pravastatin 20 mg tablet 20 mg PO DAILY #90 tab 05/03/19 06/30/19 Rx omeprazole 20 mg capsule,delayed 20 mg PO DAILY #90 cap 05/27/19 06/30/19 Rx release Turmeric Circumin 500 mg PO DAILY 06/30/19 06/30/19 History calcium citrate 500 mg PO DAILY 06/30/19 06/30/19 History isosorbide mononitrate 30 mg PO DAILY 06/30/19 06/30/19 History magnesium C-bzcogm-coebvqiypwe 1 tab PO DAILY 06/30/19 06/30/19 History Past Med/Surg History Medical History Actinic keratosis (Chronic) Adult situational stress disorder (Chronic) Benign prostatic hyperplasia with urinary obstruction (Chronic) Coronary artery disease (Chronic 11/09/12) Essential hypertriglyceridemia (Chronic) Fatigue (Chronic) Gastroesophageal reflux disease (Chronic) Hearing loss (Chronic) Hyperglycemia (Chronic) Hyperlipidemia (Chronic 11/09/12) Hypertension (Chronic) Low back pain (Chronic) Miliaria, apocrine Nocturia (Chronic) Nonocclusive coronary atherosclerosis of [place] coronary artery (Chronic) PAD (peripheral artery disease) (Chronic) Parotiditis (Inactive) Sick sinus syndrome (Chronic) Sleep related hypoxia (Chronic) Spinal stenosis of lumbar region without neurogenic claudication (Chronic) Vertigo (Chronic 11/09/12) Vitamin D deficiency (Chronic) Surgical History H/O rotator cuff surgery (11/09/12) History of carotid endarterectomy History of colonoscopy History of heart surgery History of permanent cardiac pacemaker placement S/P rotator cuff repair Family History Unknown Bladder cancer Father Pneumonia Mother Stroke syndrome Brother Prostate cancer Lung cancer Osteogenesis imperfecta Son No problems noted. Social History Preferred Language: Greek Feels Safe at Home: Yes Smoking Status: Never smoker Review of Systems Review of Systems: Mild distress and fatigue He has had resolution of his headache, he has no blurry or double vision no speech or swallowing issues no chest pain, pressure or palpitations no shortness of breath, cough or wheezes no abdominal pain, nausea or vomiting, diarrhea or constipation no dysuria, hematuria or frequency no focal joint pain or swelling no back pain, CVA tenderness or radicular pain no bruising, bleeding or rashes no focal signs of weakness or numbness or altered sensation no complaints or anxiety or depression Physical Exam Physical Exam: The patient appeared well nourished and normally developed. There is no obvious neurological deficit upon gross interrogation Vital signs as documented. Head exam is unremarkable. No scleral icterus He has a slightly asymmetrical smile which he says is typical for him Neck is without JVD, thyromegaly, or carotid bruits. Lungs are clear to auscultation and percussion. Cardiac exam, Rhythm is regular.. No murmurs, rubs or gallops. Abdominal exam reveals normal bowel sounds, soft non tender, no masses there is no abdominal bruits heard Extremities are nonedematous and both pedal pulses are normal. Neurologic exam is alert and oriented, no focal loss of strength or sensation, finger-nose is intact Skin is without bruises or rashes Psychologically is without concerns for anxiety or depression Results & Data Results & Data ([facility]) Vital Signs (Past 12 Hours) Vital Signs EKG shows a ventricularly paced rhythm no acute ST or T wave changes are noted Temp Pulse Resp BP Pulse Ox 06/30/19 14:14 98.6 F 72 16 128/66 95 Code Status & VTE Plan VTE Prophylaxis Plan VTE Prophylaxis will be ordered: Yes PG Care Time/CCT Total # of Minutes Spent Total Time Spent with Patient: Total time spent is greater than 50% in coordination of care (as documented) at patient's floor/unit and/or counseling patient: Coding Level of Care Code 80065 Initial Inpt Care Lvl 2 Diagnoses CVA (cerebral vascular accident) I63.9 Benign prostatic hyperplasia with urinary obstruction N40.1; N13.8 Coronary artery disease I25.10 Hypertension I10 Hypertension type: essential hypertension Sick sinus syndrome I49.5 Depression F32.9 DVT prophylaxis Z29.9 (1) Hypertension Hypertension type: essential hypertension Qualified Code(s): I10 - Essential (primary) hypertension
[2019-06-30] MEDS ORDERED: ONDANSETRON INJ 2 MG/ML 2 ML VIAL IV PRN (16:51)
[2019-06-30] MEDS ORDERED: ALUMINUM/MAGNESIUM SUSP 30 ML UDC PO PRN (16:51)
[2019-06-30] MEDS ORDERED: PHARMACIST DISCHARGE MED REC CONSULT PRN (16:51)
[2019-06-30] MEDS ORDERED: ALPRAZolam 0.25 MG TABLET PO PRN (16:51)
[2019-06-30] MEDS ORDERED: ACETAMINOPHEN 325 MG TAB PO PRN (16:51)
[2019-06-30] MEDS ORDERED: TAMSULOSIN HCL 0.4 MG CAP PO SCH (18:00)
[2019-06-30] MEDS: METOPROLOL TARTRATE 25 MG TAB PO SCH (20:39)
[2019-07-01 06:00] LABS: Estimated Average Glucose 131 mg/dl; Hemoglobin A1C 6.2 % (4.5-5.6)
[2019-07-01 06:26] LABS: Basophils # (auto) 0.02 K/uL (0-0.2); Basophils % (auto) 0.2 %; Eosinophils # (auto) 0.11 K/uL (0-0.5); Eosinophils % (auto) 1.3 %; Hemoglobin 14.3 g/dL (14.0-18.0); Immature Granulocytes # (auto) 0.07 K/uL (0.00-0.02); Immature Granulocytes % (auto) 0.8 %; Lymphocytes # (auto) 3.32 K/uL (1.2-3.4); Lymphocytes % (auto) 38.7 %; Mean Corpuscular Hemoglobin 28.8 pg (25-34); Mean Corpuscular Hgb Conc 31.8 g/dL (32-36); Mean Corpuscular Volume 90.5 fL (80-100); Mean Platelet Volume 11.7 fL (7.4-10.4); Monocytes # (auto) 0.97 K/uL (0.11-0.59); Monocytes % (auto) 11.3 %; Neutrophils # (auto) 4.09 K/uL (1.4-6.5); Neutrophils % (auto) 47.7 %; Platelet Count 164 K/uL (130-400); RDW Coefficient of Variation 13.5 % (11.5-14.5); RDW Standard Deviation 44.8 fL (36.4-46.3); Red Blood Count 4.97 M/uL (4.7-6.1); White Blood Count 8.58 K/uL (4.8-10.8)
[2019-07-01 07:00] LABS: BUN Creatinine Ratio 16.7 (10-20); Creatinine Clr Calc Pharmacy 51.9 ml/min; Est GFR (African American) 71.8; Est GFR (Non-African American) 61.9; Potassium 4.3 mmol/L (3.5-5.1)
[2019-07-01] MEDS: METOPROLOL TARTRATE 25 MG TAB PO SCH (08:40)
[2019-07-01] MEDS ORDERED: PANTOprazole 40 MG TAB PO SCH (09:00)
[2019-07-01] MEDS ORDERED: ISOSORBIDE MONO EXTENDED REL 30 MG TABCR PO SCH (09:00)
[2019-07-01] MEDS ORDERED: ATORVASTATIN 40 MG TAB PO SCH (09:00)
[2019-07-01] MEDS ORDERED: ESCITALOPRAM OXALATE 10 MG TAB PO SCH (09:00)
[2019-07-01] MEDS ORDERED: ASPIRIN 81 MG ECTAB PO SCH (09:00)
--- NOTE | 2019-07-01 10:37 | CT Scan Report ---
CT head/brain wo con CLINICAL HISTORY: 89 years-old Male presenting with mental status change, repeat for CVA rule out. TECHNIQUE: Multidetector CT imaging of the head was performed without the use of intravenous contrast . IV contrast: None. One or more dose lowering techniques were used consistent with the principles of ALARA (as low as reasonably achievable), including automatic exposure control, mA or kV adjustment t o individual patient size, and/or use of iterative reconstruction. COMPARISON: 06/30/2019 at 2:[address] DOSE (mGy.cm): The estimated cumulative dose is 958.25 mGy.cm. FINDINGS: Purifying Plant Operator topogram: Unremarkable. Proportional ventricular and sulcal prominence, likely age-related parenchymal volume loss. No hemorr molly. Severe periventricular and subcortical white matter hypoattenuation, nonspecific but likely ind icative of chronic small vessel ischemic change. No acute territorial infarct. No mass effect or midl ine shift. No extra-axial fluid collection. Paranasal sinuses and mastoid air cells clear. Calvarium intact. IMPRESSION: 1. Severe chronic small vessel ischemic change. No acute intracranial abnormality. ACT 112: Negative or not required by law. Electronically signed by: Aly Tom M.D. 07/01/2019 10:36 AM
[2019-07-01] MEDS ORDERED: STROKE PATIENT DISCHARGE STA (13:37)
--- NOTE | 2019-07-01 14:11 | Pharmacy Report ---
Pharmacist Stroke Counseling - Date of Service July 01, 2019 - Scope: Pharmacy has been consulted to provide medication discharge counseling for this patient admitted with [ischemic stroke] [hemorrhagic stroke] [transient ischemic attack] as per the Pharmacist Discharge Counseling for Stroke Patients Protoc ol. - Medications on Discharge: Home Medications Medication Instructions Recorded Confirmed amlodipine 2.5 mg tablet 2.5 mg PO DAILY 10/06/18 06/30/19 cholecalciferol (vitamin D3) 25 1,000 units PO DAILY 10/06/18 06/30/19 mcg (1,000 unit) capsule coenzyme Q10 200 mg capsule 200 mg PO DAILY 10/06/18 06/30/19 glucosamine HCl 1,500 mg tablet 1,500 mg PO DAILY 10/06/18 06/30/19 metoprolol tartrate 25 mg tablet 25 mg PO BID 10/06/18 06/30/19 vitamin B comp and C no.3 15 mg-10 1 cap PO DAILY 10/06/18 06/30/19 mg-50 mg-5 mg-300 mg capsule alprazolam 0.25 mg tablet 0.25 mg PO DAILY PRN 01/14/19 06/30/19 meclizine 25 mg tablet 25 mg PO DAILY PRN 01/14/19 06/30/19 pygeum africanum 50 mg capsule 100 mg PO DAILY cap 01/14/19 06/30/19 vitamin K2 40 mcg tablet 0 mcg PO DAILY 01/14/19 06/30/19 Turmeric Circumin 500 mg PO DAILY 06/30/19 06/30/19 calcium citrate 500 mg PO DAILY 06/30/19 06/30/19 isosorbide mononitrate 30 mg PO DAILY 06/30/19 06/30/19 magnesium M-lvutqs-xaskfnmzivo 1 tab PO DAILY 06/30/19 06/30/19 New Rx's Medication Instructions Recorded fluticasone propionate 50 1 sprays INTNAS DAILY PRN #18.2 gm 10/29/18 mcg/actuation nasal spray,suspension tamsulosin 0.4 mg capsule 0.4 mg PO DAILY #90 cap 10/29/18 escitalopram oxalate 10 mg tablet 15 mg PO DAILY #45 tab 02/16/19 omeprazole 20 mg capsule,delayed 20 mg PO DAILY #90 cap 05/27/19 release aspirin 81 mg PO QAM #32 tab 07/01/19 atorvastatin 40 mg PO QAM #32 tab 07/01/19 - Action: The above medications, specifically ones for stroke treatment/prophylaxis, have been reviewed in detail with the patient and/or patient student services representative(s) prior to discharge. This includes indication, common adverse reactions, drug interactions, and medication administration. Medication counseling has been employed using the teach-back method to ensure understanding. - Outcome: The patient and/or patient student services representative(s) have demonstrated understanding of the medications. Please note, they are aware that the pharmacist will call them within 72 hours post-discharge to confirm that the appropriate medications are being taken and answer any further medication related questions the patient might have at that time. Contact information Individual to be contacted: Yobani Phone number: [phone] Best time to call: morning or late afternoon Additional comments: * Counseled patient on new medications: ASA 81 mg PO daily and atorvastatin 40 mg PO daily * Patient is familiar with both medicines - he reports being on ASA in the past and took pravastatin prior to this admission, he denies side effects from either drug * Also reminded patient to STOP amlodipine per discharge plan * Patient denied having medication questions Thank you for allowing pharmacy to be involved in the care of this patient. Please call [phone] or [phone] with any additional questions
--- NOTE | 2019-07-01 15:34 | Electrocardiogram Report ---
Test Reason : Blood Pressure : / mmHG Vent. Rate : 072 BPM Atrial Rate : 072 BPM P-R Int : 170 ms QRS Dur : 160 ms QT Int : 452 ms P-R-T Axes : 070 -67 083 degrees QTc Int : 494 ms Atrial-sensed ventricular-paced rhythm Abnormal ECG When compared with ECG of 12-JUL-2016 04:36, Premature ventricular complexes are no longer Present Vent. rate has decreased BY 13 BPM Confirmed by Abhay Galvan ([id number]) on 07/01/2019 3:34:06 PM Referred By: REFERRED SELF Confirmed By:Michoacano Galvan
--- NOTE | 2019-07-01 16:04 | Discharge Summary ---
Date of Service July 01, 2019 Admission HPI Per Admitting Provider 89 yo male with a past medical history of CVA that presents the ER for slurred speech right-sided facial droop and trouble ambulating which is been present since he woke up this morning. Last known well was last night prior to going to bed around 9 PM. He notes that last night he had a mild headache. When he woke up this morning he noticed some numbness in his left jama but that has now resolved. He denies any other complaints. Patient feels he is returned to his baseline. He feels he may also have slightly asymmetric smile at his baseline. Patient denies any other recent health changes or health problems. He will be brought to the hospital for the non-TPA stroke protocol. 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 Lungs are clear to auscultation and percussion. Cardiac exam, Rhythm is regular.. No murmurs, rubs or gallops. Abdominal exam reveals normal bowel sounds, soft non tender, no masses Extremities are nonedematous and both pedal pulses are normal. Neurologic exam is alert and oriented, no focal loss of strength or sensation he may have some mild word searching pauses in his speech Skin is without bruises or rashes Psychologically is without concerns for anxiety or depression Discharge Data Allergies Allergy/AdvReac Type Severity Reaction Status Date / Time clavulanic acid Allergy Unknown UNKNOWN Verified 06/30/19 15:57 Sulfa (Sulfonamide Allergy Unknown Unknown Verified 06/30/19 15:57 Antibiotics) amoxicillin AdvReac Intermediate NAUSEA Unverified 06/30/19 15:57 Penicillins AdvReac Intermediate NAUSEA/VOMI Verified 06/30/19 15:57 TING Consultations 06/30/19 15:22 ED Decision to Admit Stat 06/30/19 16:51 Consult Case Management - Discharge Planning Routine Consult Neurology Routine Ordered Studies 06/30/19 14:14 CT angio head w con Stat CT angio neck with con Stat CT head/brain wo con Stat 07/01/19 09:51 CT head/brain wo con Routine Hospital Course (1) CVA (cerebral vascular accident): Patient presents with a intermittent deficit which is resolved which was with headache and possibly some left jama numbness. Patient given a full dose aspirin. A telephone stroke consult is undertaken per the ER doctor without any recommendations for intervention. He was certainly outside of the time window for thrombolytic therapy. Patient be started and continued on aspirin therapy. His statin will be changed to atorvastatin 40. His antihypertensives were amended to allow for permissive hypertension and i Because of the patient's pacemaker an MRI would not be ordered we will repeat a CT of the brain on 06/30. pt dorita be continued on aspirin [address] head 07/01/19 IMPRESSION: 1. Severe chronic small vessel ischemic change. No acute intracranial abnormality. CT angiogram of brain 06/30/19 IMPRESSION: 1. 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 2. Otherwise, unremarkable CTA of the head. CT angiogram of neck moderate 50% narrowing of left ICA CT head non contrast negative for acute changes (2) Benign prostatic hyperplasia with urinary obstruction: Patient had no prehospital symptoms he will continue on Flomax therapy (3) Coronary artery disease: Patient be maintained on his regular dose of isosorbide mononitrate. His metoprolol will be reduced from 25 twice daily to 12.5 twice daily. His other antihypertensive medication, amlodipine, will be held at this time will likely restart at the time of discharge (4) Hypertension: Patient will be allowed permissive hypertension as above (5) Sick sinus syndrome: Patient is a left chest pacemaker he is paced on monitor patient is unaware whether this is an MRI compatible pacemaker (6) Depression: Patient exhibits no physiological signs or symptoms of depression at this point time but will be maintained on his Lexapro therapy. Total Time Total Time Spent Total Time Spent (In Minutes): It required greater than 30 minutes to prepare this patient for discharge Discharge Plan Discharge Items Patient Disposition: Home - Self-Care Reason For Visit: POSSIBLE STROKE Discharge Diagnosis: transient ischemic attack there is a narrowing of a section of an artery in your brain, we will use Activity: Resume your previous activity Non-emergency contact: Primary Care Provider Call non-emergency contact if: you have any medication questions and your symptoms worsen Follow-up/Referrals: Aly Bowling MD [Primary Care Provider] - (follow up with Dr Bowling in one week) Diet: Regular Addtl Attending Provider Instructions: please rest and recover if you feel your speech is not recovering you may have your primary care doctor refer you to outpt speech therapy once their clinics reopen you will have a tele visit with your pcp in a week or so, be sure you have your portal set up with an electronic device that can function to allow you to have this visit Risk Factors for Stroke: You can reduce your chances of stroke by working with your medical provider to adopt a healthy lifestyle. Some specific ways to lower your chance of stroke are: * If you are a smoker, now is the time to stop smoking cigarettes * If you are diabetic, improve the control of your blood sugars * Avoid excessive amounts of alcohol * Control high blood pressure * Lose weight if you are overweight * Be sure to lead an active lifestyle * Eat a healthy diet low in salt, cholesterol and fat You should know about other risk factors for stroke that you are unable to control. These include: * Age 55 years or older * Male gender * Certain racial groups: , or / * Family History of Stroke, Mini stroke or Heart Attack * Sickle Cell Disease Follow Up: It is important for you to keep your follow up appointments with your medical provider. Who to Call and When: Medical Emergencies: Call 911 immediately if you experience any of the following warning signs and symptoms of Stroke: * Sudden numbness or weakness of the face, arm or leg, especially on one side of the body * Sudden confusion, trouble speaking or understanding * Sudden trouble seeing in one or both eyes * Sudden trouble walking, dizziness, loss of balance or coordination * Sudden severe headache with no cause Do not delay calling 911 if you experience any warning signs or symptoms of a stroke. Delay in seeking medical attention may affect what treatments can be given to you. . Pending Studies at Discharge: No Stand-Alone Forms: Medications to Prevent Stroke, [facility], Smoking Cessation Medications and DC Order Prescriptions: New atorvastatin 40 mg Tablet 40 mg PO QAM Qty: 32 RF: 4 aspirin 81 mg Tablet,Delayed Release (Dr/Ec) 81 mg PO QAM Qty: 32 RF: 4 Continued fluticasone propionate [Allergy Relief (fluticasone)] 50 mcg/actuation spray,suspension 1 sprays INTNAS DAILY PRN (Reason: allergy symptoms) Qty: 18.2 RF: 2 tamsulosin 0.4 mg capsule 0.4 mg PO DAILY Qty: 90 RF: 0 escitalopram oxalate 10 mg tablet 15 mg PO DAILY Qty: 45 RF: 4 omeprazole 20 mg capsule,delayed release(DR/EC) 20 mg PO DAILY Qty: 90 RF: 3 meclizine 25 mg tablet 25 mg PO DAILY PRN (Reason: dizzyness) RF: 0 alprazolam [Xanax] 0.25 mg tablet 0.25 mg PO DAILY PRN (Reason: Anxiety) RF: 0 vitamin K2 40 mcg tablet 0 mcg PO DAILY RF: 0 pygeum africanum 50 mg capsule 100 mg PO DAILY RF: 0 metoprolol tartrate 25 mg tablet 25 mg PO BID RF: 0 glucosamine HCl 1,500 mg tablet 1,500 mg PO DAILY RF: 0 coenzyme Q10 200 mg capsule 200 mg PO DAILY RF: 0 B Complex Plus Vitamin C [id number] mg capsule 1 cap PO DAILY RF: 0 cholecalciferol (vitamin D3) 1,000 unit capsule 1,000 units PO DAILY RF: 0 isosorbide mononitrate 30 mg Tablet Extended Release 24 Hr 30 mg PO DAILY RF: 0 calcium citrate 250 mg calcium Tablet 500 mg PO DAILY RF: 0 magnesium G-ivvdky-fezxpewzwoy 42 mg (500 mg)- 250 mg Tablet Extended Release 1 tab PO DAILY RF: 0 Turmeric Circumin 500 mg PO DAILY RF: 0 Discontinued pravastatin 20 mg tablet 20 mg PO DAILY Qty: 90 RF: 3 amlodipine [Norvasc] 2.5 mg tablet 2.5 mg PO DAILY RF: 0 Discharge Orders: Discharge Order (Routine); Ordered 07/01/19 Ordered By: Daniel Bill/Other Patient Handouts: TIA Admission Data Admit Date/Time: 06/30/19 15:54 Attending Provider: Daniel Ambriz Admit Provider: Daniel Ambriz Primary Care Provider: Aly Bowling Other Providers: Daniel Ambriz ; Laura Medina ; F[facility] Other Interventions: Discharge Summary Assessment (RN) Last Done: 07/01/19 14:07 DC Date/Time DO NOT enter until pt leaves facility: 07/01/19 14:48 Coding Level of Care Code D/C Day Management >30 mins Diagnoses CVA (cerebral vascular accident) I63.9 Benign prostatic hyperplasia with urinary obstruction N40.1; N13.8 Coronary artery disease I25.10 Hypertension I10 Hypertension type: essential hypertension Sick sinus syndrome I49.5 Depression F32.9
--- NOTE | 2019-07-01 19:32 | Neurology Consultation ---
Date of Consultation July 01, 2019 Assessment & Plan (1) Stroke-like symptoms: Yobani Brown is an 89 yo man w/ PMH of prior stroke with unclear residual deficits, HTN, HLD, prediabetes, sick sinus syndrome s/p pacemaker, lumbar spinal stenosis, vitamin D deficiency, CAD and h/o CEA who p/t [facility] on 06/29 after waking up with R FP, numbness in his left jama and difficulty ambulating. Symptom localization: R FP could localize to L MCA territory or R danny or L [employer]AD [employer] (thalamus) Stroke mechanism: cardioembolic vs flow failure Stroke WorkUp: - CT head: generalized atrophy with severe SVID - CTA head/neck: high grade stenosis of the L MCA (M2/M3 segment), hypoplastic right vertebral artery, mild-moderate narrowing of the L ICA at the bifurcation, no other LVO, high grade stenosis or aneurysm noted - TTE: n/a - Telemetry: NSR - A1c: 6.2 - FLP: 55 - Troponin: negative Stroke Management: - Acute treatment: ASA - Vitals, Neurochecks, NIHSS per unit routine - BP parameters: SBP CAP 180, restart home anti-hypertensives for permissive HTN - Consult speech, PT, OT for supportive management - Will dianetic counselor concerning stroke education, smoking cessation, healthy diet, physical activity, weight loss - Follow up with PCP for assistance with outpatient goals (BP <135/85, LDL <70, A1c <7) - Follow up in neurology clinic as needed Secondary Stroke Prevention: - Antiplatelet: ASA 81mg po daily - Anticoagulation: Not indicated at this time - Statin: Atorvastatin 40mg daily HTN: - BP parameters, as above - Restart home medications with goal of lowering BP to normotension over next 3- 4 days FEN/GI: - Diet: Cardiac HH diet and PO meds given absence of bulbar signs or symptoms - Monitor lytes and replete PRN Glucose Control: - Sliding scale insulin and accuchecks per primary team to avoid hyperglycemia # High grade stenosis left M2/M3: continue with maximal medical therapy with aspirin/atorvastatin. At this time, there is no data that shows intervention with intracranial stents provides a better outcome than maximal medical therapy. Thank you for this interesting consult. Patient was discharged prior to being seen. He can follow up in neurology clinic as needed, otherwise, continue to work with PCP on seconday stroke prevention. (2) Hyperlipidemia: (3) Hypertension: (4) Hyperglycemia: (5) PAD (peripheral artery disease): (6) Cognitive impairment: (7) Ambulatory dysfunction: History of Present Illness Attending Physician: Daniel Ambriz MD History of Present Illness Yobani Brown is an 89 yo man w/ PMH of prior stroke with unclear residual deficits, HTN, HLD, prediabetes, sick sinus syndrome s/p pacemaker, lumbar spinal stenosis, vitamin D deficiency, CAD and h/o CEA who p/t [facility] on 06/29 after waking up with R FP, numbness in his left jama and difficulty ambulating. [employer] ~9pm the evening prior. Did note having a mild headache the evening prior. No associated symptoms. In the ED, vitals WNL. Labs notable for glucose 130, Cr 1.22, Hb low at 13.9, Pl ts 189, INR 1.0, Ca/Mg WNL, troponin negative. CTH showed generalized atrophy with severe SVID. CTA H&N showed high grade stenosis of the L MCA (M2/M3 segment), hypoplastic right vertebral artery, mild-moderate narrowing of the L ICA at the bifurcation, no other LVO, high grade stenosis or aneurysm noted. He is not able to get MRI given pacemaker incompatible. He was admitted overnight for stroke workup with no other symptoms noted while admitted. Repeat CTH stable with no new hypodensity or hemorrhage noted. Allergies Allergy/AdvReac Type Severity Reaction Status Date / Time clavulanic acid Allergy Unknown UNKNOWN Verified 06/30/19 15:57 Sulfa (Sulfonamide Allergy Unknown Unknown Verified 06/30/19 15:57 Antibiotics) amoxicillin AdvReac Intermediate NAUSEA Unverified 06/30/19 15:57 Penicillins AdvReac Intermediate NAUSEA/VOMI Verified 06/30/19 15:57 TING Home Medications Home Medications Medication Instructions Recorded Confirmed Type cholecalciferol (vitamin D3) 25 1,000 units PO DAILY 10/06/18 06/30/19 History mcg (1,000 unit) capsule coenzyme Q10 200 mg capsule 200 mg PO DAILY 10/06/18 06/30/19 History glucosamine HCl 1,500 mg tablet 1,500 mg PO DAILY 10/06/18 06/30/19 History metoprolol tartrate 25 mg tablet 25 mg PO BID 10/06/18 06/30/19 History vitamin B comp and C no.3 15 mg-10 1 cap PO DAILY 10/06/18 06/30/19 History mg-50 mg-5 mg-300 mg capsule fluticasone propionate 50 1 sprays INTNAS DAILY PRN #18.2 gm 10/29/18 06/30/19 Rx mcg/actuation nasal spray,suspension tamsulosin 0.4 mg capsule 0.4 mg PO DAILY #90 cap 10/29/18 06/30/19 Rx alprazolam 0.25 mg tablet 0.25 mg PO DAILY PRN 01/14/19 06/30/19 History meclizine 25 mg tablet 25 mg PO DAILY PRN 01/14/19 06/30/19 History pygeum africanum 50 mg capsule 100 mg PO DAILY cap 01/14/19 06/30/19 History vitamin K2 40 mcg tablet 0 mcg PO DAILY 01/14/19 06/30/19 History escitalopram oxalate 10 mg tablet 15 mg PO DAILY #45 tab 02/16/19 06/30/19 Rx omeprazole 20 mg capsule,delayed 20 mg PO DAILY #90 cap 05/27/19 06/30/19 Rx release Turmeric Circumin 500 mg PO DAILY 06/30/19 06/30/19 History calcium citrate 500 mg PO DAILY 06/30/19 06/30/19 History isosorbide mononitrate 30 mg PO DAILY 06/30/19 06/30/19 History magnesium [id number] 1 tab PO DAILY 06/30/19 06/30/19 History aspirin 81 mg PO QAM #32 tab 07/01/19 Rx atorvastatin 40 mg PO QAM #32 tab 07/01/19 Rx Patient History Medical History Actinic keratosis (Chronic) Adult situational stress disorder (Chronic) Benign prostatic hyperplasia with urinary obstruction (Chronic) Coronary artery disease (Chronic 11/09/12) Essential hypertriglyceridemia (Chronic) Fatigue (Chronic) Gastroesophageal reflux disease (Chronic) Hearing loss (Chronic) Hyperglycemia (Chronic) Hyperlipidemia (Chronic 11/09/12) Hypertension (Chronic) Low back pain (Chronic) Miliaria, apocrine Nocturia (Chronic) Nonocclusive coronary atherosclerosis of [place] coronary artery (Chronic) PAD (peripheral artery disease) (Chronic) Parotiditis (Inactive) Sick sinus syndrome (Chronic) Sleep related hypoxia (Chronic) Spinal stenosis of lumbar region without neurogenic claudication (Chronic) Vertigo (Chronic 11/09/12) Vitamin D deficiency (Chronic) Surgical History H/O rotator cuff surgery (11/09/12) History of carotid endarterectomy History of colonoscopy History of heart surgery History of permanent cardiac pacemaker placement S/P rotator cuff repair Family History Unknown Bladder cancer Father Pneumonia Mother Stroke syndrome Brother Prostate cancer Lung cancer Osteogenesis imperfecta Son No problems noted. Social History Preferred Language: Greenlandic Communication Ability: Effective Teachers Assistant Required: No Beliefs That Will Affect Care: None marital status: Current Living Situation: Spouse Feels Safe at Home: Yes Smoking Status: Never smoker Second Hand Exposure: No ; Hx Alcohol Use: No Hx Substance Use: No Review of Systems Review of Systems: n/a Exam (Neuro) Physical Exam: pt discharged and left prior to being seen Results & Data ([facility]) Vital Signs (Past 12 Hours) Vital Signs Temp Pulse Pulse Resp BP Pulse Ox 07/01/19 14:07 36.4 C L 64 19 119/54 L 95 07/01/19 11:00 36.4 C L 64 19 119/54 L 95 07/01/19 08:01 61 PG Care Time/CCT Total # of Minutes Spent Total Time Spent with Patient: Total time spent is greater than 50% in coordination of care (as documented) at patient's floor/unit and/or counseling patient: Coding Level of Care Code None Diagnoses Stroke-like symptoms R29.90 Hyperlipidemia E78.5 Hypertension I10 Hypertension type: essential hypertension Hyperglycemia R73.9 PAD (peripheral artery disease) I73.9 Cognitive impairment R41.89 Ambulatory dysfunction R26.2 (1) Hypertension Hypertension type: essential hypertension Qualified Code(s): I10 - Essential (primary) hypertension
--- NOTE | 2019-07-04 10:10 | Pharmacy Report ---
Pharmacist Post D/C Phone Note - Phone Note: Date of phone call: July 04, 2019. Individual with whom pharmacist spoke to: FRANSISCO BROWN JR The following questions were reviewed during the phone call with responses listed below each: Can you tell me the medications that you are currently taking as well as when and how you take each medication? -See Table Below When have you missed any doses of your medications? - Patient has not missed any doses since being discharged What side effects are you having from your medications, specifically, the new medications you were started on? - Patient reports no side effects since starting new medications What questions do you have about your medications? - Patient was given an opportunity to have all questions answered by pharmacist. He denied having any additional questions. What problems are you having obtaining your medications? - Patient reports no issues with obtaining medications. When is your next appointment with your primary care doctor? - Patient was unsure if he should call PCP or if they would call him so no follow up appointment has been scheduled. I instructed the patient to give his PCP's office a call today to discuss scheduling options given current Covid-19 pandemic. Additional comments: - Patient reports that he has stopped taking amlodipine since being discharge. Instructed patient on available locations to take extra tablets to be disposed of properly. As per the Pharmacist Discharge Counseling for Stroke Patients Protocol, this phone call has been completed within 72 hours of discharge. Thank you for allowing us to be involved in the care of this patient. - Home Medications: Home Medications Medication Instructions Recorded Confirmed cholecalciferol (vitamin D3) 25 1,000 units PO DAILY 10/06/18 06/30/19 mcg (1,000 unit) capsule coenzyme Q10 200 mg capsule 200 mg PO DAILY 10/06/18 06/30/19 glucosamine HCl 1,500 mg tablet 1,500 mg PO DAILY 10/06/18 06/30/19 metoprolol tartrate 25 mg tablet 25 mg PO BID 10/06/18 06/30/19 vitamin B comp and C no.3 15 mg-10 1 cap PO DAILY 10/06/18 06/30/19 mg-50 mg-5 mg-300 mg capsule alprazolam 0.25 mg tablet 0.25 mg PO DAILY PRN 01/14/19 06/30/19 meclizine 25 mg tablet 25 mg PO DAILY PRN 01/14/19 06/30/19 pygeum africanum 50 mg capsule 100 mg PO DAILY cap 01/14/19 06/30/19 vitamin K2 40 mcg tablet 0 mcg PO DAILY 01/14/19 06/30/19 Turmeric Circumin 500 mg PO DAILY 06/30/19 06/30/19 calcium citrate 500 mg PO DAILY 06/30/19 06/30/19 isosorbide mononitrate 30 mg PO DAILY 06/30/19 06/30/19 magnesium S-[id number]-latjietjqvv 1 tab PO DAILY 06/30/19 06/30/19 New Rx's Medication Instructions Recorded fluticasone propionate 50 1 sprays INTNAS DAILY PRN #18.2 gm 10/29/18 mcg/actuation nasal spray,suspension tamsulosin 0.4 mg capsule 0.4 mg PO DAILY #90 cap 10/29/18 escitalopram oxalate 10 mg tablet 15 mg PO DAILY #45 tab 02/16/19 omeprazole 20 mg capsule,delayed 20 mg PO DAILY #90 cap 05/27/19 release aspirin 81 mg PO QAM #32 tab 07/01/19 atorvastatin 40 mg PO QAM #32 tab 07/01/19
--- NOTE | 2019-07-05 07:34 | Coding Query ---
CODING QUERY To promote full compliance with coding requirements relating to patient care, provider participation is requested in all cases of invoice coder uncertainty. Please assist us with the question(s) below: Coding Question(s): There is documentation on the Discharge Summary under the Principal Diagnosis of TIA and stenosis of branch of left MCA and also documentation of CVA under the hospital course. Due to conflicting documentation, please clarify below. ( xxx ) TIA. CVA is ruled-out ( ) CVA. Please specify below: ( ) due to stenosis of left MCA ( ) not due to stenosis of left MCA ( ) Other: Please specify ( ) Other. Please Specify Physician's Response(s): Thank you Devorah Weiss Principal Diagnosis: "that condition established after study, to be chiefly responsible for occasioning the admission of the patient to the hospital for care." Co-Existing Principal Diagnosis: "when two or more diagnoses equally meet the criteria for principal diagnosis as determined by the circumstances of admission, diagnostic work up, and/or therapy provided, and the Alphabetic Index, Tabular List, or another coding guideline does not provide sequencing direction, any one of the diagnoses may be sequenced first." "When the physician has documented what appears to be a current diagnosis in the body of the record, but has not included the diagnosis in the final diagnostic statement, the physician should be asked whether the diagnosis should be added." (Source [facility] 2 QTR90. p3-4) JACOB
== END 2019-07-01 14:48 | disposition home health service (06) | DRG 69 ==
LOC: ED 14:06 → 2S 15:54

== ENCOUNTER 2020-02-12 11:10 | Inpatient (IN) ==
[2020-02-12] MEDS ORDERED: SODIUM CHLORIDE 0.9% 1000ML 1,000 ML IV SCH (12:00)
--- NOTE | 2020-02-12 12:01 | Emergency Department Note ---
History of Present Illness General Chief complaint: Confusion Time Seen by Provider: 02/12/20 11:30 Source: patient Mode of arrival: ambulatory Limitations: no limitations History of Present Illness Provider complaint: Dizziness, concerned about possible stroke Current Pain Intensity: 0 Relieved By: + none Exacerbated By: + none Associated symptoms: + denies other symptoms Treatments prior to arrival: none This is an 89-year-old male who presents from home via EMS due to 's concerns about dizziness and possible stroke. Patient states this morning he felt dizzy and off balance while trying to get dressed. Patient states yesterday he felt off balance and slid off the commode. He denies head trauma or loss of consciousness, states he hurt his arm and there is an apparent skin tear. Patient states he has had dizziness in the past. Per notes from EMS felt he might of had a left facial droop. It is unknown when this was first noted. had stated he has had prior mini strokes and has had this symptom previously. Patient denies any recent change in diet, activity, or medications. Patient denies chest pain, palpitations, trouble breathing, abdominal pain, nausea, vomiting. Patient states he does have a pacemaker and follows with Dr. Ward of cardiology. Patient states this is the second pacemaker he has had. Patient denies headaches. Patient states he did have eye surgery last week and is felt slightly more off balance since this was performed. Patient denies any worsening vision changes, does feel that he is improving since the surgery. Pt seen during a time of high acuity and national emergency pandemic while wearing PPE. Home Medications Medication Instructions Recorded Confirmed Type cholecalciferol (vitamin D3) 25 1,000 units PO DAILY 10/06/18 02/12/20 History mcg (1,000 unit) capsule coenzyme Q10 200 mg capsule 200 mg PO DAILY 10/06/18 02/12/20 History glucosamine HCl 1,500 mg tablet 1,500 mg PO DAILY 10/06/18 02/12/20 History metoprolol tartrate 25 mg tablet 25 mg PO BID 10/06/18 02/12/20 History vitamin B comp and C no.3 15 mg-10 1 cap PO DAILY 10/06/18 02/12/20 History mg-50 mg-5 mg-300 mg capsule fluticasone propionate 50 1 sprays INTNAS DAILY PRN #18.2 gm 10/29/18 02/12/20 Rx mcg/actuation nasal spray,suspension alprazolam 0.25 mg tablet 0.25 mg PO DAILY PRN 01/14/19 02/12/20 History meclizine 25 mg tablet 25 mg PO DAILY PRN 01/14/19 02/12/20 History omeprazole 20 mg capsule,delayed 20 mg PO DAILY #90 cap 05/27/19 02/12/20 Rx release calcium citrate 500 mg PO DAILY 06/30/19 02/12/20 History isosorbide mononitrate 30 mg PO DAILY 06/30/19 02/12/20 History aspirin 81 mg PO QAM #32 tab 07/01/19 02/12/20 Rx atorvastatin 40 mg PO QAM #32 tab 07/01/19 02/12/20 Rx escitalopram oxalate 10 mg tablet 15 mg PO DAILY #135 tab 07/13/19 02/12/20 Rx tamsulosin 0.4 mg capsule 0.4 mg PO DAILY #90 cap 11/17/19 02/12/20 Rx amlodipine 2.5 mg tablet 2.5 mg PO DAILY 01/25/20 02/12/20 History turmeric root extract 500 mg 500 mg PO DAILY 01/25/20 02/12/20 History capsule Allergies Allergy/AdvReac Type Severity Reaction Status Date / Time clavulanic acid Allergy Unknown UNKNOWN Verified 02/12/20 12:08 Sulfa (Sulfonamide Allergy Unknown Unknown Verified 02/12/20 12:08 Antibiotics) amoxicillin AdvReac Intermediate NAUSEA Verified 02/12/20 12:08 Penicillins AdvReac Intermediate NAUSEA/VOMI Verified 02/12/20 12:08 TING Past Med/Surg History Medical History (Updated 02/14/20 @ 01:56 by Chrissy Alonso DO) Actinic keratosis 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 Coronary artery disease (11/09/12) Essential hypertriglyceridemia Fatigue Gastroesophageal reflux disease Hearing loss Hyperglycemia Hyperlipidemia (11/09/12) Hypertension Low back pain Miliaria, apocrine Nocturia Nonocclusive coronary atherosclerosis of ambler coronary artery PAD (peripheral artery disease) Parotiditis Sick sinus syndrome Sleep related hypoxia Spinal stenosis of lumbar region without neurogenic claudication Vertigo (11/09/12) Vitamin D deficiency Surgical History H/O rotator cuff surgery (11/09/12) History of carotid endarterectomy History of colonoscopy History of heart surgery History of permanent cardiac pacemaker placement S/P rotator cuff repair Family History Unknown Bladder cancer Father Pneumonia Mother Stroke syndrome Brother Prostate cancer Lung cancer Osteogenesis imperfecta Son No problems noted. Social History Smoking Status: Never smoker Second Hand Exposure: No; Do You Dip or Chew Tobacco: No; Hx Alcohol Use: No Hx Substance Use: No Preferred Language: Sami Communication Ability: Effective Visual Impairment: Limited Hearing Ability: Normal Sexual Assault Counselor Required: No Beliefs That Will Affect Care: None marital status: Current Living Situation: Spouse current occupational status: retired Other Information That Helps Us Care for You: No Feels Safe at Home: Yes Safety Concerns: Feels Safe At This Time Childhood Exposure to Second-Hand Smoke: Yes caffeine: Yes Dental Care, Regularly: Yes Physical Activity Frequency: 3-4 Times per Week Physical Activity Frequency Comment: WALK Seatbelt Use: always Sunscreen Use: Yes Assistive Devices: Oxygen - Continuous Review of Systems See HPI for pertinent positives & negatives. and A total of 10 systems reviewed and were otherwise negative Physical Exam Vital Signs Vital Signs - 24 hr 02/12/20 11:20 02/12/20 12:18 02/12/20 13:50 Temperature 37.1 C Temperature Source Oral Pulse Rate 73 68 73 Pulse Rate from SpO2 Sensor 68 72 Respiratory Rate 22 16 26 H Blood Pressure 150/58 H 158/71 H 155/72 H Blood Pressure Mean 88 114 99 Blood Pressure Position Sitting Pulse Oximetry 88 L 95 93 Oxygen Delivery Method Room Air Sepsis Recent Fever Within 48 Hours No Sepsis New/Unexplained Change in Mental Status No Sepsis Action Taken by Nursing No Action Required GENERAL: alert, well appearing, well nourished, no distress, non-toxic EYE EXAM: normal conjunctiva, PERRL and EOM's grossly intact, no nystagmus OROPHARYNX: no exudate, no erythema, lips, buccal mucosa, and tongue normal and mucous membranes are moist NECK: supple, no nuchal rigidity, no adenopathy, non-tender LUNGS: Clear to auscultation. Normal chest wall mechanics, no w/r/r HEART: no murmurs, S1 normal and S2 normal, well-healed scar from pacemaker placement left anterior superior chest wall. ABDOMEN: abdomen soft, non-tender, normo-active bowel sounds, no masses, no rebound or guarding. BACK: Back is symmetrical on inspection and there is no deformity, no midline tenderness, no CVA tenderness. SKIN: no rashes and no bruising UPPER EXTREMITIES: upper extremities are grossly normal. FROM, nml pulses b/l. LOWER EXTREMITIES: No pitting edema. FROM, nml pulses b/l. NEURO EXAM: Normal sensorium, cranial nerves II-XII grossly intact, normal speech, no gross weakness of arms, no gross weakness of legs. No facial droop, no ataxia. Gross sensation intact. Course Course 1400: Pt updated on results. He denies abdominal pain, chest pain, sob, headache, dizziness. 1415: Discussed with . She states he has had JOSEPH for several months and yesterday c/o abdominal pain, n/v. He did eat a bowl of cereal last night and then again this am. She states he vomited a total of 4 times today, did not notice any blood. She states he did have 1 or 2 episodes of diarrhea also. She states he never looked flush and never felt warm to touch. She did give him a Zofran last evening and he stated he felt improved. She states he did have cataract surgery last week, they have been doing the drops as recommended, and he seemed to be doing well with that. She denies he has complained of any recent chest pain. She denies they have been otherwise exposed to anyone with any illness including coronavirus. 1600: Discussed with FELIPE Horton with general surgery. Agree with plan for hospitalist admit and they will see in consult. 1620: Discussed with Renny Frankel PA-C hospitalist service. Administered Medications Amlodipine Besylate (Amlodipine Besylate 5 Mg Tab) 2.5 mg PO DAILY [facility] Stop: 03/14/20 08:59 Last Admin: 02/13/20 15:38 Dose: 2.5 mg Documented by: [id number] Aspirin (Aspirin 81 Mg Ectab) 81 mg PO QAM [facility] Stop: 03/14/20 08:59 Last Admin: 02/13/20 15:38 Dose: 81 mg Documented by: [id number] Atorvastatin Calcium (Atorvastatin 40 Mg Tab) 40 mg PO QAM [facility] Stop: 03/14/20 08:59 Last Admin: 02/13/20 15:40 Dose: 40 mg Documented by: [id number] Calcium Carbonate (Calcium Carbonate 1250mg Tab) 1,250 mg PO DAILY [facility]; Protocol Stop: 03/14/20 08:59 Last Admin: 02/13/20 15:41 Dose: 1,250 mg Documented by: [id number] Escitalopram Oxalate (Escitalopram Oxalate 10 Mg Tab) 15 mg PO DAILY [facility] Stop: 03/14/20 08:59 Last Admin: 02/13/20 15:41 Dose: 15 mg Documented by: [id number] Sodium Chloride (Nss 1000ml) 1,000 mls @ 75 mls/hr IV .[id number] [facility] Stop: 03/13/20 19:30 Last Admin: 02/13/20 15:29 Dose: 75 mls/hr Documented by: [id number] Infusion: 02/13/20 10:27 Dose: 75 mls/hr Documented by: [id number] Admin: 02/12/20 21:07 Dose: 75 mls/hr Documented by: [id number] Cefepime HCl 2,000 mg/ Syringe 20 mls @ 5 mls/min IV Q12H [facility]; Protocol Stop: 02/22/20 20:59 Last Admin: 02/13/20 21:40 Dose: 5 mls/min Documented by: [id number] Admin: 02/13/20 08:24 Dose: 5 mls/min Documented by: [id number] Admin: 02/12/20 21:05 Dose: 5 mls/min Documented by: [id number] Metronidazole (Flagyl) 500 mg in 100 mls @ 100 mls/hr IV Q8H [facility] Stop: 02/22/20 20:59 Last Admin: 02/13/20 21:40 Dose: 100 mls/hr Documented by: [id number] Infusion: 02/13/20 16:49 Dose: 0 mls/hr Documented by: [id number] Admin: 02/13/20 15:35 Dose: 100 mls/hr Documented by: [id number] Infusion: 02/13/20 06:38 Dose: 0 mls/hr Documented by: [id number] Admin: 02/13/20 05:38 Dose: 100 mls/hr Documented by: [id number] Infusion: 02/12/20 22:03 Dose: 0 mls/hr Documented by: [id number] Admin: 02/12/20 21:03 Dose: 100 mls/hr Documented by: [id number] Isosorbide Mononitrate (Isosorbide Ector Extended Rel 30 Mg Tabcr) 30 mg PO DAILY [facility] Stop: 03/14/20 08:59 Last Admin: 02/13/20 15:40 Dose: 30 mg Documented by: [id number] Metoprolol Tartrate (Metoprolol Tartrate 25 Mg Tab) 25 mg PO BID [facility] Stop: 03/13/20 20:59 Last Admin: 02/13/20 21:40 Dose: 25 mg Documented by: [id number] Admin: 02/13/20 15:41 Dose: 25 mg Documented by: [id number] Admin: 02/12/20 21:04 Dose: 25 mg Documented by: [id number] Pantoprazole Sodium (Pantoprazole 40 Mg Tab) 40 mg PO DAILY [facility] Stop: 03/14/20 08:59 Last Admin: 02/13/20 15:42 Dose: 40 mg Documented by: [id number] Senna/Docusate Sodium (Docusate Sodium/Senna 50/8.6mg Tab) 1 tab PO BID [facility] Stop: 03/14/20 20:59 Last Admin: 02/13/20 21:41 Dose: 1 tab Documented by: [id number] Tamsulosin HCl (Tamsulosin Hcl 0.4 Mg Cap) 0.4 mg PO DAILY@1730 [facility] Stop: 03/14/20 17:29 Last Admin: 02/13/20 17:39 Dose: Not Given Documented by: [id number] Vitamin B Complex (Vitamin B Complex Tab) 1 tab PO DAILY [facility] Stop: 03/14/20 08:59 Last Admin: 02/13/20 15:42 Dose: 1 tab Documented by: [id number] Vitamin D (Cholecalciferol 1,000 Units 25 Mcg Tab) 1,000 units PO DAILY [facility] Stop: 03/14/20 08:59 Last Admin: 02/13/20 15:43 Dose: 1,000 units Documented by: [id number] Discontinued Medications Bupivacaine HCl (Bupivacaine 0.5 % 5 Mg/1 Ml Mpf 30ml Vial) Confirm Administered Dose 30 ml .ROUTE .STK-MED ONE Stop: 02/13/20 11:50 Last Admin: 02/13/20 14:11 Dose: 14 ml Documented by: [id number] Sodium Chloride (Nss 1000ml) 1,000 mls @ 125 mls/hr IV .Q8H [facility] Stop: 03/13/20 11:59 Last Admin: 02/12/20 13:34 Dose: Not Given Documented by: [id number] Cefoxitin Sodium (Mefoxin) 2,000 mg in 60 mls @ 100 mls/hr IV NOW STA Stop: 02/12/20 16:59 Last Infusion: 02/12/20 17:15 Dose: 0 mls/hr Documented by: [id number] Admin: 02/12/20 16:41 Dose: 100 mls/hr Documented by: [id number] Indomethacin (Indomethacin 50 Mg Supp) 100 mg NV ONE ONE Stop: 02/13/20 09:21 Last Admin: 02/13/20 13:06 Dose: 100 mg Documented by: [id number] Indomethacin (Indomethacin 50 Mg Supp) Confirm Administered Dose 100 mg NV .STK- MED ONE Stop: 02/13/20 11:56 Last Admin: 02/13/20 15:43 Dose: Not Given Documented by: [id number] Ioversol (Optiray 320 125ml) 120 ml IV ONCE ONE Stop: 02/12/20 12:52 Last Admin: 02/12/20 12:51 Dose: 120 ml Documented by: [id number] Ioversol (Ioversol 50ml) Confirm Administered Dose 1 ml IV .STK-MED ONE Stop: 02/13/20 11:29 Last Admin: 02/13/20 15:43 Dose: Not Given Documented by: [id number] Miscellaneous ( Floseal Hemostatic Matrix 10ml) 10 ml TOP ONCE ONE Stop: 02/13/20 13:39 Last Admin: 02/13/20 14:11 Dose: 10 ml Documented by: [id number] Medical Decision Making Differential Diagnosis Differential diagnosis includes etiologies such as benign positional vertigo, dehydration, hypovolemia, anemia, tumor, infection, hypoglycemia, electrolyte abnormalities, cardiac sources, intracerebral event, toxicologic, neurologic, as well as others were entertained. Medical Records Attestation: I reviewed the patient's medical records. Home Medications Current Medication List: was personally reviewed by me Laboratory Data Attestation: I reviewed the patient's lab results. Result diagrams: 02/13/20 03:14 02/13/20 03:14 Lab Results 02/12/20 02/12/2002/11/20 Range/Units 11:38 11:38 11:38 WBC 28.70 H (4.8-10.8) K/uL RBC 4.84 (4.7-6.1) M/uL Hgb 14.1 (14.0-18.0) g/dL Hct 44.6 (42-52) % MCV 92.1 (80-100) fL MCH 29.1 (25-34) pg MCHC 31.6 L (32-36) g/dL RDW Std Deviation 46.9 H (36.4-46.3) fL RDW Coeff of Jose 13.8 (11.5-14.5) % Plt Count 171 (130-400) K/uL MPV 12.5 H (7.4-10.4) fL Immature Gran % (Auto) 0.7 % Neut % (Auto) 72.5 % Lymph % (Auto) 8.2 % Ector % (Auto) 18.5 % Eos % (Auto) 0.0 % Baso % (Auto) 0.1 % Neut # (Auto) 20.79 H (1.4-6.5) K/uL Lymph # (Auto) 2.36 (1.2-3.4) K/uL Ector # (Auto) 5.32 H (0.11-0.59) K/uL Eos # (Auto) 0.00 (0-0.5) K/uL Baso # (Auto) 0.02 (0-0.2) K/uL Immature Gran # (Auto) 0.21 H (0.00-0.02) K/uL PT 11.6 (9.0-12.0) Seconds INR 1.1 (0.9-1.1) Sodium 137 (136-145) mmol/L Potassium 4.5 (3.5-5.1) mmol/L Chloride 101 (98-107) mmol/L Carbon Dioxide 29 (21-32) mmol/L Anion Gap 7.0 (3-11) BUN 23 H (7-18) mg/dl Creatinine 1.31 (0.6-1.4) mg/dl Est Cr Clr Drug Dosing 45.6 ml/min Est GFR ( Amer) 55.6 Est GFR (Non-Af Amer) 47.9 BUN/Creatinine Ratio 17.6 (10-20) Glucose 148 H (70-99) mg/dl Calcium 9.0 (8.5-10.1) mg/dl Magnesium 2.1 (1.8-2.4) mg/dl Total Bilirubin 1.0 (0.2-1) mg/dl AST 40 H (15-37) U/L ALT 29 (12-78) U/L Alkaline Phosphatase 64 (45-117) U/L Troponin I 0.110 H* (0-0.045) ng/ml NT-Pro-B Natriuret Pep 6174 H (0-1800) pg/ml Total Protein 7.3 (6.4-8.2) gm/dl Albumin 3.9 (3.4-5.0) gm/dl Globulin 3.4 (2.5-4.0) gm/dl Albumin/Globulin Ratio 1.2 (0.9-2) Lipase 44 L (73-393) U/L Procalcitonin (0-0.5) ng/ml TSH 0.989 (0.300-4.500) uIu/ml Urine Color Urine Appearance (Clear) Urine pH (4.5-7.5) Ur Specific [place] (1.000-1.030) Urine Protein (Negative) Urine Glucose (UA) (Negative) Urine Ketones (Negative) Urine Blood (Negative) Urine Nitrite (Negative) Urine Bilirubin (Negative) Urine Urobilinogen (Negative) Ur Leukocyte Esterase (Negative) Urine WBC (Auto) (0-5) /hpf Urine RBC (Auto) (0-4) /hpf U Hyaline Cast (Auto) (0-5) /lpf U Epithel Cells (Auto) (0-5) /lpf Urine Bacteria (Auto) (Negative) COVID-19 Eval Order SARS-CoV-2, RNA, NAAT (NEGATIVE) 02/12/20 02/12/20 02/12/20 Range/Units 11:38 13:22 13:22 WBC (4.8-10.8) K/uL RBC (4.7-6.1) M/uL Hgb (14.0-18.0) g/dL Hct (42-52) % MCV (80-100) fL MCH (25-34) pg MCHC (32-36) g/dL RDW Std Deviation (36.4-46.3) fL RDW Coeff of Jose (11.5-14.5) % Plt Count (130-400) K/uL MPV (7.4-10.4) fL Immature Gran % (Auto) % Neut % (Auto) % Lymph % (Auto) % Ector % (Auto) % Eos % (Auto) % Baso % (Auto) % Neut # (Auto) (1.4-6.5) K/uL Lymph # (Auto) (1.2-3.4) K/uL Ector # (Auto) (0.11-0.59) K/uL Eos # (Auto) (0-0.5) K/uL Baso # (Auto) (0-0.2) K/uL Immature Gran # (Auto) (0.00-0.02) K/uL PT (9.0-12.0) Seconds INR (0.9-1.1) Sodium (136-145) mmol/L Potassium (3.5-5.1) mmol/L Chloride (98-107) mmol/L Carbon Dioxide (21-32) mmol/L Anion Gap (3-11) BUN (7-18) mg/dl Creatinine (0.6-1.4) mg/dl Est Cr Clr Drug Dosing ml/min Est GFR ( Amer) Est GFR (Non-Af Amer) BUN/Creatinine Ratio (10-20) Glucose (70-99) mg/dl Calcium (8.5-10.1) mg/dl Magnesium (1.8-2.4) mg/dl Total Bilirubin (0.2-1) mg/dl AST (15-37) U/L ALT (12-78) U/L Alkaline Phosphatase (45-117) U/L Troponin I (0-0.045) ng/ml NT-Pro-B Natriuret Pep (0-1800) pg/ml Total Protein (6.4-8.2) gm/dl Albumin (3.4-5.0) gm/dl Globulin (2.5-4.0) gm/dl Albumin/Globulin Ratio (0.9-2) Lipase (73-393) U/L Procalcitonin 0.19 (0-0.5) ng/ml TSH (0.300-4.500) uIu/ml Urine Color Urine Appearance (Clear) Urine pH (4.5-7.5) Ur Specific [place] (1.000-1.030) Urine Protein (Negative) Urine Glucose (UA) (Negative) Urine Ketones (Negative) Urine Blood (Negative) Urine Nitrite (Negative) Urine Bilirubin (Negative) Urine Urobilinogen (Negative) Ur Leukocyte Esterase (Negative) Urine WBC (Auto) (0-5) /hpf Urine RBC (Auto) (0-4) /hpf U Hyaline Cast (Auto) (0-5) /lpf U Epithel Cells (Auto) (0-5) /lpf Urine Bacteria (Auto) (Negative) COVID[facility]19 [id number] SARS-[facility]-2, RNA, NAAT NEGATIVE (NEGATIVE) 02/12/20 Range/Units 13:51 WBC (4.8-10.8) K/uL RBC (4.7-6.1) M/uL Hgb (14.0-18.0) g/dL Hct (42-52) % MCV (80-100) fL MCH (25-34) pg MCHC (32-36) g/dL RDW Std Deviation (36.4-46.3) fL RDW Coeff of Jose (11.5-14.5) % Plt Count (130-400) K/uL MPV (7.4-10.4) fL Immature Gran % (Auto) % Neut % (Auto) % Lymph % (Auto) % Ector % (Auto) % Eos % (Auto) % Baso % (Auto) % Neut # (Auto) (1.4-6.5) K/uL Lymph # (Auto) (1.2-3.4) K/uL Ector # (Auto) (0.11-0.59) K/uL Eos # (Auto) (0-0.5) K/uL Baso # (Auto) (0-0.2) K/uL Immature Gran # (Auto) (0.00-0.02) K/uL PT (9.0-12.0) Seconds INR (0.9-1.1) Sodium (136-145) mmol/L Potassium (3.5-5.1) mmol/L Chloride (98-107) mmol/L Carbon Dioxide (21-32) mmol/L Anion Gap (3-11) BUN (7-18) mg/dl Creatinine (0.6-1.4) mg/dl Est Cr Clr Drug Dosing ml/min Est GFR ( Amer) Est GFR (Non-Af Amer) BUN/Creatinine Ratio (10-20) Glucose (70-99) mg/dl Calcium (8.5-10.1) mg/dl Magnesium (1.8-2.4) mg/dl Total Bilirubin (0.2-1) mg/dl AST (15-37) U/L ALT (12-78) U/L Alkaline Phosphatase (45-117) U/L Troponin I (0-0.045) ng/ml NT-Pro-B Natriuret Pep (0-1800) pg/ml Total Protein (6.4-8.2) gm/dl Albumin (3.4-5.0) gm/dl Globulin (2.5-4.0) gm/dl Albumin/Globulin Ratio (0.9-2) Lipase (73-393) U/L Procalcitonin (0-0.5) ng/ml TSH (0.300-4.500) uIu/ml Urine Color Yellow Urine Appearance Clear (Clear) Urine pH 5.5 (4.5-7.5) Ur Specific [place] > 1.045 H (1.000-1.030) Urine Protein 2+ H (Negative) Urine Glucose (UA) Negative (Negative) Urine Ketones Negative (Negative) Urine Blood 2+ H (Negative) Urine Nitrite Negative (Negative) Urine Bilirubin Negative (Negative) Urine Urobilinogen Negative (Negative) Ur Leukocyte Esterase Negative (Negative) Urine WBC (Auto) 1-5 (0-5) /hpf Urine RBC (Auto) 0-4 (0-4) /hpf U Hyaline Cast (Auto) 1-5 (0-5) /lpf U Epithel Cells (Auto) 5-10 H (0-5) /lpf Urine Bacteria (Auto) Negative (Negative) COVID-19 Eval Order SARS-CoV-2, RNA, NAAT (NEGATIVE) Imaging Data Radiologist's Impression: XR chest 1V portable CLINICAL HISTORY: dizziness COMPARISON STUDY: Chest radiograph June 30, 2019. FINDINGS: Patient is rotated. There is no pneumothorax or pleural effusion. Cardiomegaly is noted. Dual lead left subclavian pacemaker is in place. No consolidation is identified. There is pulmonary vascular congestion. IMPRESSION: 1. Pulmonary vascular congestion. 2. Cardiomegaly. ACT 112: Negative or not required by law. Electronically signed by: Raza Godinez M.D. 02/12/2020 12:[address] OF THE HEAD WITHOUT CONTRAST CLINICAL HISTORY: dizziness COMPARISON STUDY: Head CT July 01, 2019. TECHNIQUE: Helical axial images of the head were obtained without IV contrast. Automated exposure control was utilized for the study. A dose lowering technique was utilized adhering to the principles of ALARA. FINDINGS: No acute intracranial hemorrhage, midline shift or mass effect is present. Ventricular system is stable. Basilar cisterns are patent. There are no extra axial collections. There are no findings to suggest acute dural sinus thrombosis or acute territorial infarct. Extensive white matter hypodensities are unchanged and suggest small vessel disease. The appearance of the brain is similar to prior examination. There is no calvarial fracture. IMPRESSION: No acute intracranial findings. No change in appearance of the brain. ACT 112: Negative or not required by law. Electronically signed by: Raza Godinez M.D. 02/12/2020 1:[address] ANGIOGRAPHY OF THE NECK WITH CONTRAST CLINICAL HISTORY: dizzy, confusion COMPARISON STUDY: CTA of the neck June 30, 2019. Technique: CT angiography of the carotid and vertebral arteries was obtained using Optiray 320 IV and 3D reconstruction on an independent workstation. NASCET criteria was utilized. Automated exposure control was utilized for the study. A dose lowering technique was utilized adhering to the principles of ALARA. CT DOSE: 1221.02 mGy.cm Findings: The proximal right vertebral artery is suboptimally assessed due to artifact from contrast within the adjacent veins. The left vertebral artery is dominant and patent. There is mild plaque within the proximal right internal carotid artery without stenosis. There is moderate plaque within the proximal left internal carotid artery. Vessel measures 1.7 mm in caliber at site of narrowing. The vessel measures 3.7 mm in caliber distally. No additional stenoses are identified within the major vessels of the neck. There is no dissection. Lung apices are clear. There is no cervical spine fracture. Multilevel degenerative changes are present. CTA of the head will be reported separately. IMPRESSION: 1. 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 2. Suboptimal evaluation of the proximal right vertebral artery due to adjacent contrast. Dominant, patent left vertebral artery. 3. No dissection within the major vessels of the neck. ACT 112: Negative or not required by law. Electronically signed by: Raza Godinez M.D. 02/12/2020 1:20 PM CTA ANGIOGRAPHY OF THE HEAD CLINICAL HISTORY: dizzy, confusion COMPARISON STUDY: CTA of the head June 30, 2019. TECHNIQUE: Helical axial images of the head were obtained following uneventful intravenous administration of 120 cc of Optiray 320. Sagittal and coronal reconstructions were viewed as well as maximal intensity projections on an independent 3-D workstation. Automated exposure control was utilized for the study. A dose lowering technique was utilized adhering to the principles of ALARA. FINDINGS: No acute intracranial hemorrhage, midline shift or mass effect is present. Ventricular system is stable. Basilar cisterns are patent. There are no extra axial collections. Extensive white matter hypodensities are unchanged and suggest small vessel disease. The bilateral M1, M2, A1 and A2 segments are patent. No central vessel occlusion is noted. There is mild plaque within the bilateral cavernous carotids. Left vertebral artery is dominant. Posterior circulation is intact. There is no intracranial aneurysm or dissection. 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 IMPRESSION: No central vessel occlusion. No intracranial aneurysm. ACT 112: Negative or not required by law. Electronically signed by: Raza Godinez M.D. 02/12/2020 1:[address] OF THE ABDOMEN AND PELVIS WITHOUT CONTRAST CLINICAL HISTORY: recent abd pain COMPARISON STUDY: CT of the abdomen and pelvis October 04, 2015. TECHNIQUE: Axial images of the abdomen and pelvis were obtained without IV contrast. Images were reviewed in the axial, sagittal, and coronal planes. Automated exposure control was utilized for the study. A dose lowering technique was utilized adhering to the principles of ALARA. FINDINGS: Pacer leads are partially imaged. There is mild cardiomegaly. Trace bilateral pleural effusions are noted. Interlobular septal thickening is noted. There are mild bilateral lower lung opacity. No pneumatosis, free air or portal venous gas is present. Evaluation of the abdomen and pelvis is suboptimal on t his unenhanced exam. The liver, spleen, adrenal glands and pancreas are unremarkable. Gallbladder is distended. There is moderate pericholecystic infiltration. There is no hydronephrosis. Moderate renal atrophy is noted. Water attenuation right renal lesion is suboptimally assessed on this unenhanced exam but favors a cyst and is contrast within the collecting systems, ureters and bladder from recent contrast-enhanced CT. Note is made of colonic diverticulosis without evidence for acute diverticulitis. There is no evidence for acute appendicitis. Appendix is slightly dilated but unchanged in appearance since prior exam. There is no periappendiceal infiltration. No lymphadenopathy is present. There are no suspicious osseous lesions. IMPRESSION: 1. Gallbladder distention with moderate pericholecystic infiltration. The findings suggest acute cholecystitis. If indicated, a hepatobiliary scan could be obtained. 2. No bowel obstruction. 3. Colonic diverticulosis without evidence for acute diverticulitis. 4. Trace bilateral pleural effusions. Mild interstitial pulmonary edema. ACT 112: Negative or not required by law. Electronically signed by: Raza Godinez M.D. 02/12/2020 3:53 PM ECG Data Attestation: I personally reviewed and interpreted this ECG as follows: Indication: + other (dizziness) Rate (beats per minute): 73 Rhythm: + other (paced) ECG Intervals/blocks: + IVCD and + Normal QT-c ECG [place]: + Left axis deviation ECG ST segments: + Nonspecific ST abnormalities MDM Narrative This is an 89-year-old male who presents due to concern for dizziness and possible TIA. Patient had no other specific complaints during my review of systems, had a nonfocal neuro exam during exam and no other acute abnormalities noted. Patient does have a cardiac history and his pacemaker was noted during exam and evidence of was noted on telemetry. Patient was afebrile and hemodynamically stable. Initially patient had labs drawn and sent and he was sent for CT as well as CT angiography of the head and neck. While this is reassuring, patient was noted to have an elevated troponin, and elevated white blood cell count. Chest x-ray added, Covid swab and BNP added. Covid was negative, chest x-ray with evidence of early pulmonary edema, and BNP elevated. Patient was reexamined multiple times, and additional questioning to try and figure out the etiology of his severe leukocytosis. After contacting the patient's seeking additional information to which the patient gave verbal c onsent, patient's described severe GI symptoms within the last 24 hours. Upon learning this, patient was sent back for CT of the abdomen and pelvis which showed acute cholecystitis. General surgery was contacted, and case discussed with hospitalist for ongoing evaluation. Patient and made aware of results and plan and were in agreement. Patient remained hemodynamically stable in the emergency room. Patient was given a dose of Mefoxin awaiting surgical consultation. LFTs and lipase reassuring. I do not suspect acute cholangitis. No evidence of pancreatitis. An order was placed for continuous cardiac monitoring. The monitor shows a rate of _64_ with paced_ rhythm. Impression & Plan Abdominal pain, Acute cholecystitis, Elevated troponin, Nausea & vomiting, Leukocytosis, Pulmonary edema Discharge Plan Visit Data Chief Complaint: Confusion ED Provider: Chrissy Alonso Discharge Problem: Abdominal pain, Acute cholecystitis, Elevated troponin, Nausea & vomiting, Leukocytosis, Pulmonary edema Patient Disposition: Admitted As Inpatient Condition: Good Discharge Instructions Interventions: ED Discharge Assessment Last Done: 02/12/20 19:00
[2020-02-12 12:11] LABS: Hematocrit (blood only) 44.6 % (42-52); Hemoglobin 14.1 g/dL (14.0-18.0); Mean Corpuscular Hemoglobin 29.1 pg (25-34); Mean Corpuscular Hgb Conc 31.6 g/dL (32-36); Mean Corpuscular Volume 92.1 fL (80-100); Mean Platelet Volume 12.5 fL (7.4-10.4); Platelet Count 171 K/uL (130-400); RDW Coefficient of Variation 13.8 % (11.5-14.5); RDW Standard Deviation 46.9 fL (36.4-46.3); Red Blood Count 4.84 M/uL (4.7-6.1)
[2020-02-12 12:17] LABS: INR 1.1 (0.9-1.1); Prothrombin Time 11.6 Seconds (9.0-12.0)
[2020-02-12 12:29] LABS: Albumin Level 3.9 gm/dl (3.4-5.0); BUN Creatinine Ratio 17.6 (10-20); Creatinine Clr Calc Pharmacy 45.6 ml/min; Est GFR (African American) 55.6; Est GFR (Non-African American) 47.9; Magnesium 2.1 mg/dl (1.8-2.4); Potassium 4.5 mmol/L (3.5-5.1)
--- NOTE | 2020-02-12 12:32 | XRay Report ---
XR chest 1V portable CLINICAL HISTORY: dizziness COMPARISON STUDY: Chest radiograph June 30, 2019. FINDINGS: Patient is rotated. There is no pneumothorax or pleural effusion. Cardiomegaly is noted. Du al lead left subclavian pacemaker is in place. No consolidation is identified. There is pulmonary vas cular congestion. IMPRESSION: 1. Pulmonary vascular congestion. 2. Cardiomegaly. ACT 112: Negative or not required by law. Electronically signed by: Raza Godinez M.D. 02/12/2020 12:31 PM
[2020-02-12 12:42] LABS: Albumin Globulin Ratio 1.2 (0.9-2); Globulin 3.4 gm/dl (2.5-4.0); Thyroid Stimulating Hormone 0.989 uIu/ml (0.300-4.500); Total Protein 7.3 gm/dl (6.4-8.2); Troponin I 0.11 ng/ml (0-0.045)
[2020-02-12] MEDS ORDERED: OPTIRAY 320 125ml IV ONE (12:51)
--- NOTE | 2020-02-12 13:02 | CT Scan Report ---
CT OF THE HEAD WITHOUT CONTRAST CLINICAL HISTORY: dizziness COMPARISON STUDY: Head CT July 01, 2019. TECHNIQUE: Helical axial images of the head were obtained without IV contrast. Automated exposure con trol was utilized for the study. A dose lowering technique was utilized adhering to the principles o f ALARA. FINDINGS: No acute intracranial hemorrhage, midline shift or mass effect is present. Ventricular syst em is stable. Basilar cisterns are patent. There are no extra axial collections. There are no finding s to suggest acute dural sinus thrombosis or acute territorial infarct. Extensive white matter hypode nsities are unchanged and suggest small vessel disease. The appearance of the brain is similar to kristy or examination. There is no calvarial fracture. IMPRESSION: No acute intracranial findings. No change in appearance of the brain. ACT 112: Negative or not required by law. Electronically signed by: Raza Godinez M.D. 02/12/2020 1:01 PM
[2020-02-12 13:18] LABS: Basophils # (auto) 0.02 K/uL (0-0.2); Basophils % (auto) 0.1 %; Immature Granulocytes # (auto) 0.21 K/uL (0.00-0.02); Immature Granulocytes % (auto) 0.7 %; Lymphocytes # (auto) 2.36 K/uL (1.2-3.4); Lymphocytes % (auto) 8.2 %; Monocytes # (auto) 5.32 K/uL (0.11-0.59); Monocytes % (auto) 18.5 %; Neutrophils # (auto) 20.79 K/uL (1.4-6.5); Neutrophils % (auto) 72.5 %
--- NOTE | 2020-02-12 13:21 | CT Scan Report ---
CT ANGIOGRAPHY OF THE NECK WITH CONTRAST CLINICAL HISTORY: dizzy, confusion COMPARISON STUDY: CTA of the neck June 30, 2019. Technique: CT angiography of the carotid and vertebral arteries was obtained using [employer]err[employer] Pai 320 IV and 3D reconstruction on an independent workstation. NASCET criteria was utilized. Automated exposure c ontrol was utilized for the study. A dose lowering technique was utilized adhering to the principles of ALARA. CT DOSE: 1221.02 mGy.cm Findings: The proximal right vertebral artery is suboptimally assessed due to artifact from contrast within the adjacent veins. The left vertebral artery is dominant and patent. There is mild plaque wit hin the proximal right internal carotid artery without stenosis. There is moderate plaque within the proximal left internal carotid artery. Vessel measures 1.7 mm in caliber at site of narrowing. The ve ssel measures 3.7 mm in caliber distally. No additional stenoses are identified within the major vess els of the neck. There is no dissection. Lung apices are clear. There is no cervical spine fracture. Multilevel degenerative changes are present. CTA of the head will be reported separately. IMPRESSION: 1. 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 2. Suboptimal evaluation of the proximal right vertebral artery due to adjacent contrast. Dominant, p atent left vertebral artery. 3. No dissection within the major vessels of the neck. ACT 112: Negative or not required by law. Electronically signed by: Raza Godinez M.D. 02/12/2020 1:20 PM
--- NOTE | 2020-02-12 13:34 | CT Scan Report ---
CTA ANGIOGRAPHY OF THE HEAD CLINICAL HISTORY: dizzy, confusion COMPARISON STUDY: CTA of the head June 30, 2019. TECHNIQUE: Helical axial images of the head were obtained following uneventful intravenous administr ation of 120 cc of Optiray 320. Sagittal and coronal reconstructions were viewed as well as maximal i ntensity projections on an independent 3-D workstation. Automated exposure control was utilized for the study. A dose lowering technique was utilized adhering to the principles of ALARA. FINDINGS: No acute intracranial hemorrhage, midline shift or mass effect is present. Ventricular syst em is stable. Basilar cisterns are patent. There are no extra axial collections. Extensive white tereza er hypodensities are unchanged and suggest small vessel disease. The bilateral M1, M2, A1 and A2 segm ents are patent. No central vessel occlusion is noted. There is mild plaque within the bilateral cave rnous carotids. Left vertebral artery is dominant. Posterior circulation is intact. There is no intra cranial aneurysm or dissection. Stenosis within a sylvian branch of the left middle cerebral artery i s unchanged. IMPRESSION: No central vessel occlusion. No intracranial aneurysm. ACT 112: Negative or not required by law. Electronically signed by: Raza Godinez M.D. 02/12/2020 1:33 PM
[2020-02-12 14:24] LABS: Appearance Urine Clear (Clear); Bacteria Urine Automated Negative (Negative); Bilirubin Urine Negative (Negative); Blood Urine 2+ (Negative); Color Urine Yellow; Glucose Urine UA Negative (Negative); Ketones Urine Negative (Negative); Leukocyte Esterase Urine Negative (Negative); Nitrite Urine Negative (Negative); Protein Urine 2+ (Negative); RBC Urine Automated 0-4 /hpf (0-4); Specific Gravity Urine > 1.045 (1.000-1.030); Urobilinogen Urine Negative (Negative); pH Urine 5.5 (4.5-7.5)
--- NOTE | 2020-02-12 15:54 | CT Scan Report ---
CT OF THE ABDOMEN AND PELVIS WITHOUT CONTRAST CLINICAL HISTORY: recent abd pain COMPARISON STUDY: CT of the abdomen and pelvis October 04, 2015. TECHNIQUE: Axial images of the abdomen and pelvis were obtained without IV contrast. Images were revi ewed in the axial, sagittal, and coronal planes. Automated exposure control was utilized for the jeremi dy. A dose lowering technique was utilized adhering to the principles of ALARA. FINDINGS: Pacer leads are partially imaged. There is mild cardiomegaly. Trace bilateral pleural effus ions are noted. Interlobular septal thickening is noted. There are mild bilateral lower lung opacity. No pneumatosis, free air or portal venous gas is present. Evaluation of the abdomen and pelvis is martinez boptimal on this unenhanced exam. The liver, spleen, adrenal glands and pancreas are unremarkable. Ga llbladder is distended. There is moderate pericholecystic infiltration. There is no hydronephrosis. M oderate renal atrophy is noted. Water attenuation right renal lesion is suboptimally assessed on this unenhanced exam but favors a cyst and is contrast within the collecting systems, ureters and bladder from recent contrast-enhanced CT. Note is made of colonic diverticulosis without evidence for acute diverticulitis. There is no evidence for acute appendicitis. Appendix is slightly dilated but unchang ed in appearance since prior exam. There is no periappendiceal infiltration. No lymphadenopathy is pr esent. There are no suspicious osseous lesions. IMPRESSION: 1. Gallbladder distention with moderate pericholecystic infiltration. The findings suggest acute chol ecystitis. If indicated, a hepatobiliary scan could be obtained. 2. No bowel obstruction. 3. Colonic diverticulosis without evidence for acute diverticulitis. 4. Trace bilateral pleural effusions. Mild interstitial pulmonary edema. ACT 112: Negative or not required by law. Electronically signed by: Raza Godinez M.D. 02/12/2020 3:53 PM
[2020-02-12] MEDS ORDERED: cefOXitin 2,000 MG/60 ML BAG IV STA (16:24)
--- NOTE | 2020-02-12 16:51 | Surgery Consultation ---
Date of Consultation February 12, 2020 Assessment & Plan (1) Acute cholecystitis: CT findings suggest cholecystitis, will check U/S and defer HIDA at this time. WBC 28, LFTs are normal. Will need medical optimization, possible cardiology eval prior to surgery. If not cleared for surgery will likely need IR for perc drainage. Dr. Jiménez-patient does have what appears to be acute cholecystitis, I am concerned he may be developing necrotizing cholecystitis He will be placed on IV antibiotics and have a cardiac/medical evaluation-it would be best if we can remove his gallbladder with Laparoscopy possibly tomorrow, if not he may need eventual radiology/cholecystostomy tube Have talked to his and trying to call his son-we may have to get consent from the as the patient does have some underlying dementia History of Present Illness History of Present Illness 89 y/o male brought to the ED from home by EMS for confusion also c/o of some mid abdominal pain that began yesterday. Has had some nausea, and vomiting a few days ago. No previous abdominal pain. No previous abdominal surgery. Has pacemaker, follows with Dr. Ward. Allergies Allergy/AdvReac Type Severity Reaction Status Date / Time clavulanic acid Allergy Unknown UNKNOWN Verified 02/12/20 12:08 Sulfa (Sulfonamide Allergy Unknown Unknown Verified 02/12/20 12:08 Antibiotics) amoxicillin AdvReac Intermediate NAUSEA Verified 02/12/20 12:08 Penicillins AdvReac Intermediate NAUSEA/VOMI Verified 02/12/20 12:08 TING Home Medications Medication Instructions Recorded Confirmed Type cholecalciferol (vitamin D3) 25 1,000 units PO DAILY 10/06/18 02/12/20 History mcg (1,000 unit) capsule coenzyme Q10 200 mg capsule 200 mg PO DAILY 10/06/18 02/12/20 History glucosamine HCl 1,500 mg tablet 1,500 mg PO DAILY 10/06/18 02/12/20 History metoprolol tartrate 25 mg tablet 25 mg PO BID 10/06/18 02/12/20 History vitamin B comp and C no.3 15 mg-10 1 cap PO DAILY 10/06/18 02/12/20 History mg-50 mg-5 mg-300 mg capsule fluticasone propionate 50 1 sprays INTNAS DAILY PRN #18.2 gm 10/29/18 02/12/20 Rx mcg/actuation nasal spray,suspension alprazolam 0.25 mg tablet 0.25 mg PO DAILY PRN 01/14/19 02/12/20 History meclizine 25 mg tablet 25 mg PO DAILY PRN 01/14/19 02/12/20 History omeprazole 20 mg capsule,delayed 20 mg PO DAILY #90 cap 05/27/19 02/12/20 Rx release calcium citrate 500 mg PO DAILY 06/30/19 02/12/20 History isosorbide mononitrate 30 mg PO DAILY 06/30/19 02/12/20 History aspirin 81 mg PO QAM #32 tab 07/01/19 02/12/20 Rx atorvastatin 40 mg PO QAM #32 tab 07/01/19 02/12/20 Rx escitalopram oxalate 10 mg tablet 15 mg PO DAILY #135 tab 07/13/19 02/12/20 Rx tamsulosin 0.4 mg capsule 0.4 mg PO DAILY #90 cap 11/17/19 02/12/20 Rx amlodipine 2.5 mg tablet 2.5 mg PO DAILY 01/25/20 02/12/20 History turmeric root extract 500 mg 500 mg PO DAILY 01/25/20 02/12/20 History capsule Patient History Medical History (Updated 02/12/20 @ 16:46 by Morgan Ludwig Jr, PA-C) Actinic keratosis 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 Coronary artery disease (11/09/12) Essential hypertriglyceridemia Fatigue Gastroesophageal reflux disease Hearing loss Hyperglycemia Hyperlipidemia (11/09/12) Hypertension Low back pain Miliaria, apocrine Nocturia Nonocclusive coronary atherosclerosis of [place] coronary artery PAD (peripheral artery disease) Parotiditis Sick sinus syndrome Sleep related hypoxia Spinal stenosis of lumbar region without neurogenic claudication Vertigo (11/09/12) Vitamin D deficiency Surgical History H/O rotator cuff surgery (11/09/12) History of carotid endarterectomy History of colonoscopy History of heart surgery History of permanent cardiac pacemaker placement S/P rotator cuff repair Family History Unknown Bladder cancer Father Pneumonia Mother Stroke syndrome Brother Prostate cancer Lung cancer Osteogenesis imperfecta Son No problems noted. Social History Smoking Status: Never smoker Second Hand Exposure: No; Hx Alcohol Use: No Hx Substance Use: No Preferred Language: Tajik Communication Ability: Effective Visual Impairment: Limited Hearing Ability: Normal Customer Service Leader Required: No Beliefs That Will Affect Care: None marital status: Current Living Situation: Spouse current occupational status: retired Feels Safe at Home: Yes Childhood Exposure to Second-Hand Smoke: Yes caffeine: Yes Dental Care, Regularly: Yes Physical Activity Frequency: 3-4 Times per Week Physical Activity Frequency Comment: WALK Seatbelt Use: always Sunscreen Use: Yes Assistive Devices: None Review of Systems Constitutional: + chills; no fever and no anorexia Respiratory: no cough and no dyspnea Cardiovascular: no chest pain and no chest pain with activity Gastrointestinal: + abdominal pain, + nausea and + vomiting; no bloating and no heartburn Physical Exam Constitutional: WD/WN, vitals as above Respiratory: normal respiratory effort, lungs clear to auscultation Cardiovascular: RRR, no murmur, no edema Gastrointestinal (Abdomen): Percussion/Palpation: + abdomen tender (mild RUQ) and abdomen soft; no guarding Results & Data ([facility]) Vital Signs (Past 12 Hours) Vital Signs Temp Pulse Resp BP Pulse Ox 02/12/20 16:00 23 167/77 H 94 02/12/20 15:30 33 H 182/84 H 94 02/12/20 14:30 77 22 169/81 H 94 02/12/20 14:00 77 23 146/71 H 97 02/12/20 13:57 71 24 155/72 H 94 02/12/20 13:50 73 26 H 155/72 H 93 02/12/20 12:18 68 16 158/71 H 95 02/12/20 11:20 37.1 C 73 22 150/58 H 88 L PG Care Time/CCT Total # of Minutes Spent Total Time Spent with Patient: Total time spent is greater than 50% in coordination of care (as documented) at patient's floor/unit and/or counseling patient: Coding Level of Care Code 42286 Initial Inpt Care Lvl 1 Diagnoses Acute cholecystitis K81.0
--- NOTE | 2020-02-12 17:29 | Ultrasound Report ---
US gallbladder CLINICAL HISTORY: ? cholecystitis COMPARISON STUDY: CT of the abdomen and pelvis February 12, 2020. FINDINGS: Liver is sonographically normal. There is no biliary ductal dilatation. The common bile [place] t measures 4 mm in caliber. The gallbladder is mildly distended. There is mild gallbladder wall thick ening. Note is made of a large gallstone within the gallbladder fundus. There is a small amount of pe richolecystic fluid. No sonographic Talavera sign was elicited. There is no right hydronephrosis. Pancr eas is obscured by overlying bowel gas. IMPRESSION: 1. Cholelithiasis, mild gallbladder distention and mild gallbladder wall thickening. Trace pericholec ystic fluid. No sonographic Talavera sign. Acute cholecystitis cannot be excluded. A hepatobiliary scan could be obtained if indicated. 2. No biliary ductal dilatation. ACT 112: Negative or not required by law. Electronically signed by: Raza Godinez M.D. 02/12/2020 5:28 PM
--- NOTE | 2020-02-12 17:47 | History & Physical Report ---
Date of Service February 12, 2020 Assessment & Plan (1) Acute cholecystitis: * Patient with leukocytosis in excess of 28,000. CT findings and ultrasound findings concerning for acute cholecystitis with pericholecystic fluid and gallbladder wall thickening. * Patient presented with confusion from earlier today. Likely indicative of underlying infection. Thankfully, patient without any profound hemodynamic compromise at this point. * Initially received Mefoxin in the emergency department. Will broaden to cefepime and Flagyl as the patient is allergic to penicillins. * General surgery did evaluate the patient. Plan is for assessment for possible cholecystectomy tomorrow. * Will consult the patient's primary cardiology team for clearance. * Continue n.p.o. status, especially after midnight. * Will hold on anticoagulation with anticipated surgical date in the next several hours. (2) Confusion: * Extensive evaluation performed in the emergency department. * No focal neurological deficits on exam and imaging studies without acute findings. * Patient with likely degree of encephalopathy from underlying cholecystitis alone. * Continue to monitor for any neurological changes as patient is with recent TIA in the last 8 months. (3) NSTEMI (non-ST elevated myocardial infarction): * Troponin of 0.110. * EKG demonstrates paced rhythm without other ability to discern any ST changes. * Will trend troponin. * No complaints of chest pain or other sequela of ACS. * Likely demand in the setting of acute cholecystitis. * Will consult patient's primary cardiology service. (4) Depression: * Continue home medications as prescribed. (5) Coronary artery disease: * Will continue home medications. * Certainly concerning with elevated troponin in this patient. * Please see above NSTEMI recommendations. (6) Hyperglycemia: * PSG's per unit protocol. (7) Hypertension: * Continue home medications as tolerated. * Would be cautious with providing home meds if moderate drop in blood pressure appreciated secondary to patient's underlying infection and concern for progression to sepsis. (8) Sleep related hypoxia: * Supplemental oxygen as needed. History of Present Illness Primary Care Provider: Aly Bowling MD Patient is an 89-year-old male with an extensive past medical history including nocturnal hypoxemia, sick sinus syndrome status post pacemaker placement, peripheral arterial disease, hypertension, hyperlipidemia, GERD, coronary artery disease, history of recent TIA, anxiety. Patient was brought to the emergency department via EMS secondary to concerns for confusion as well as possible new TIA. Per emergency department provider, the patient initially provided minimal historical information. In conversation with the patient's , she is reports the patient complained of nausea, vomiting, and diarrhea yesterday. Patient was able to tolerate a meal of cereal last evening. Upon awakening this morning, was concerned for confusion and a possible LEFT-sided facial droop. This was not present on exam in the emergency department. reports that the patient has been weak. She reports that he has slumped off of the bed x2 last evening. Extensive evaluation in the emergency department included CT of the head as well as CTA of the head and neck with only finding of 60% stenosis of the LEFT ICA. Chest x-ray demonstrated mild findings of pulmonary edema. Troponin was elevated as well as white blood cell count. After further assessment, CT of the abdomen pelvis was obtained which showed concerning findings for pericholecystic fluid. Patient was covered with Mefoxin and general surgery was consulted. Upon evaluation in the emergency department, the patient is awake and alert. He is pleasant, but does seem to downplay symptoms. He does admit that he has been experiencing some abdominal pain. He states that he did not feel confused today and reports remembering the events. He states the only reason that he came is because of his . He remembers having nausea and vomiting as well as diarrhea yesterday. He denies any of those symptoms at this point. Patient is wearing oxygen, but admits to using this at nighttime to sleep. He reports feeling no shortness of breath. He denies any fevers or chills. He reports no recent sick contacts including concerns for COVID-19 positive individuals. Patient reports feeling hungry, but otherwise offers no complaints. Specifically, the patient denies any headaches, dizziness, lightheadedness, chest pain, palpitations, shortness of breath, pleuritic pain, hemoptysis, abdominal pain, hematochezia, melena, hematuria, or dysuria. Allergies Allergy/AdvReac Type Severity Reaction Status Date / Time clavulanic acid Allergy Unknown UNKNOWN Verified 02/12/20 12:08 Sulfa (Sulfonamide Allergy Unknown Unknown Verified 02/12/20 12:08 Antibiotics) amoxicillin AdvReac Intermediate NAUSEA Verified 02/12/20 12:08 Penicillins AdvReac Intermediate NAUSEA/VOMI Verified 02/12/20 12:08 TING Home Medications Medication Instructions Recorded Confirmed Type cholecalciferol (vitamin D3) 25 1,000 units PO DAILY 10/06/18 02/12/20 History mcg (1,000 unit) capsule coenzyme Q10 200 mg capsule 200 mg PO DAILY 10/06/18 02/12/20 History glucosamine HCl 1,500 mg tablet 1,500 mg PO DAILY 10/06/18 02/12/20 History metoprolol tartrate 25 mg tablet 25 mg PO BID 10/06/18 02/12/20 History vitamin B comp and C no.3 15 mg-10 1 cap PO DAILY 10/06/18 02/12/20 History mg-50 mg-5 mg-300 mg capsule fluticasone propionate 50 1 sprays INTNAS DAILY PRN #18.2 gm 10/29/18 02/12/20 Rx mcg/actuation nasal spray,suspension alprazolam 0.25 mg tablet 0.25 mg PO DAILY PRN 01/14/19 02/12/20 History meclizine 25 mg tablet 25 mg PO DAILY PRN 01/14/19 02/12/20 History omeprazole 20 mg capsule,delayed 20 mg PO DAILY #90 cap 05/27/19 02/12/20 Rx release calcium citrate 500 mg PO DAILY 06/30/19 02/12/20 History isosorbide mononitrate 30 mg PO DAILY 06/30/19 02/12/20 History aspirin 81 mg PO QAM #32 tab 07/01/19 02/12/20 Rx atorvastatin 40 mg PO QAM #32 tab 07/01/19 02/12/20 Rx escitalopram oxalate 10 mg tablet 15 mg PO DAILY #135 tab 07/13/19 02/12/20 Rx tamsulosin 0.4 mg capsule 0.4 mg PO DAILY #90 cap 11/17/19 02/12/20 Rx amlodipine 2.5 mg tablet 2.5 mg PO DAILY 01/25/20 02/12/20 History turmeric root extract 500 mg 500 mg PO DAILY 01/25/20 02/12/20 History capsule Past Med/Surg History Medical History (Updated 02/12/20 @ 18:31 by Renny Frankel PA-C) Actinic keratosis 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 Coronary artery disease (11/09/12) Essential hypertriglyceridemia Fatigue Gastroesophageal reflux disease Hearing loss Hyperglycemia Hyperlipidemia (11/09/12) Hypertension Low back pain Miliaria, apocrine Nocturia Nonocclusive coronary atherosclerosis of [place] coronary artery PAD (peripheral artery disease) Parotiditis Sick sinus syndrome Sleep related hypoxia Spinal stenosis of lumbar region without neurogenic claudication Vertigo (11/09/12) Vitamin D deficiency Surgical History H/O rotator cuff surgery (11/09/12) History of carotid endarterectomy History of colonoscopy History of heart surgery History of permanent cardiac pacemaker placement S/P rotator cuff repair Family History Unknown Bladder cancer Father Pneumonia Mother Stroke syndrome Brother Prostate cancer Lung cancer Osteogenesis imperfecta Son No problems noted. Social History Smoking Status: Never smoker Second Hand Exposure: No; Hx Alcohol Use: No Hx Substance Use: No Preferred Language: Azeri Communication Ability: Effective Visual Impairment: Limited Hearing Ability: Normal Asp Net Programmer Required: No Beliefs That Will Affect Care: None marital status: Current Living Situation: Spouse current occupational status: retired Feels Safe at Home: Yes Childhood Exposure to Second-Hand Smoke: Yes caffeine: Yes Dental Care, Regularly: Yes Physical Activity Frequency: 3-4 Times per Week Physical Activity Frequency Comment: WALK Seatbelt Use: always Sunscreen Use: Yes Assistive Devices: None Review of Systems Review of Systems: A complete 10 point review of systems was reviewed with the patient with pertinent positives and negatives as per history of present illness. All else were negative. Physical Exam Physical Exam: VITAL SIGNS - Vital signs and nursing notes were reviewed. GENERAL - 89-year-old male appearing his stated age who is in no acute distress. Communicates well with provider and answers questions appropriately. HEAD - NC/AT. EYES - PERRL with EOMI bilaterally. Sclera anicteric. Palpebral conjunctiva pink and moist with no injection noted. EARS - No deformities of external structures noted on gross examination bilater ally. NOSE - Midline and without cyanosis. No epistaxis or purulent drainage noted. Septum midline without deviation or septal hematoma noted. MOUTH/OROPHARYNX - Without perioral cyanosis. Buccal mucosa pink and moist and without leukoplakia. NECK - Neck with FROM. Supple to palpation. No nuchal rigidity. LUNGS - Chest wall symmetric without accessory muscle use, intercostals retractions, or central cyanosis. Normal vesicular breath sounds CTA B/L. No wheezes, rales, or rhonchi appreciated. CARDIAC - RRR with S1/S2. No murmur, rubs, or gallops appreciated. ABDOMEN - Abdominal contour flat without pulsations or visible masses. Negative [place]'s or Perez Kothari's Signs. BS normoactive all four quadrants. Moderate tenderness to palpation appreciated in the RUQ. Mild guarding. No Rebound Ten derness. Negative Vovsing's. POSITIVE Talavera's. No palpable masses, hepatosplenomegaly, or ascites noted. EXTREMITIES - No clubbing or peripheral cyanosis. No pretibial edema present. +3/5 radial and dorsalis pedis pulses palpated throughout. +5/5 strength noted in UE/LE bilaterally. NEUROLOGIC - Cranial nerves II through XII grossly intact. Sensory intact to light touch throughout. PSYCH - A&Ox3 and cooperates fully with examiner. Pt is very pleasant and interacts well with examiner. Results & Data Results & Data ([facility]) Vital Signs (Past 12 Hours) Vital Signs Temp Pulse Resp BP Pulse Ox 02/12/20 17:25 88 23 170/71 H 94 02/12/20 16:30 23 158/68 H 94 02/12/20 16:00 23 167/77 H 94 02/12/20 15:30 33 H 182/84 H 94 02/12/20 14:30 77 22 169/81 H 94 02/12/20 14:00 77 23 146/71 H 97 02/12/20 13:57 71 24 155/72 H 94 02/12/20 13:50 73 26 H 155/72 H 93 02/12/20 12:18 68 16 158/71 H 95 02/12/20 11:20 37.1 C 73 22 150/58 H 88 L Code Status & VTE Plan VTE Prophylaxis Plan VTE Prophylaxis will be ordered: No Supervising Physician Co-Signing Physician Notes Patient was seen and examined independently I discussed the case with Renny JACINTO I reviewed pertinent past medical social family history and also the plan of care and agree with the plan of care. Patient is pleasantly confused initially presented with nondescript symptoms had a significant work-up but then eventually is felt to have likely cholecystitis with concern for urgent surgery. Fortunately he does have a history of coronary disease and cerebrovascular disease and his initial troponin came back at 0.11. His EKG is paced and difficult to ascertain. The patient's confusion lends his history to be questionable he currently denies having any chest pain pressure shortness of breath or orthopnea. He does have reproducible pain in his right upper quadrant. Is admitted for intravenous antibiotics surgical clearance by cardiology with antibiotics to cover cholecystitis. He does have allergies to penicillins and sulfa drugs and is placed on cefepime and metronidazole. He typically sees Dr. Ward in the [facility] cardiology group and he will be consulted at this time will not repeat an echocardiogram as we will just trend his troponins. He will be maintained on his typical cardiology medications which include isosorbide metoprolol his aspirin will be held in the face of pending surgery Any exceptions will be noted below PG Care Time/CCT Total # of Minutes Spent Total Time Spent with Patient: Total time spent is greater than 50% in coordination of care (as documented) at patient's floor/unit and/or counseling patient: Coding Level of Care Code 80989 Initial Inpt Care Lvl 3 Diagnoses Acute cholecystitis K81.0 Confusion R41.0 NSTEMI (non-ST elevated myocardial infarction) I21.4 Depression F32.9 Coronary artery disease I25.10 Hyperglycemia R73.9 Hypertension I10 Hypertension type: essential hypertension Sleep related hypoxia G47.34 Time Spent (min) 45 (1) Hypertension Hypertension type: essential hypertension Qualified Code(s): I10 - Essential (primary) hypertension
[2020-02-12] MEDS ORDERED: NON-FORMULARY MEDICATION (Glucosamine Hcl 1,500 mg tablet) PO SCH (19:31)
[2020-02-12] MEDS ORDERED: FLUTICASONE PROPIONATE NA SPR 16 GM BTL PRN (19:31)
[2020-02-12] MEDS ORDERED: NON-FORMULARY MEDICATION (Coenzyme Q10 200 mg capsule) PO SCH (19:31)
[2020-02-12] MEDS ORDERED: ALPRAZolam 0.25 MG TABLET PO PRN (19:31)
[2020-02-12] MEDS ORDERED: ONDANSETRON INJ 2 MG/ML 2 ML VIAL IV PRN (19:31)
[2020-02-12] MEDS ORDERED: MECLIZINE HCL 25 MG TAB PO PRN (20:01)
[2020-02-12] MEDS: metroNIDAZOLE 500 MG/100 ML BAG IV SCH (21:03)
[2020-02-12] MEDS: METOPROLOL TARTRATE 25 MG TAB PO SCH (21:04)
[2020-02-12] MEDS: CEFEPIME 2,000 MG in SYRINGE 0 ML IV SCH (21:05)
[2020-02-12] MEDS: SODIUM CHLORIDE 0.9% 1000ML 1,000 ML IV SCH (21:07)
[2020-02-13 03:23] LABS: Hemoglobin 14.1 g/dL (14.0-18.0); Mean Corpuscular Hemoglobin 29.5 pg (25-34); Mean Corpuscular Volume 92.1 fL (80-100); Mean Platelet Volume 12.4 fL (7.4-10.4); Platelet Count 140 K/uL (130-400); RDW Standard Deviation 47.5 fL (36.4-46.3); Red Blood Count 4.78 M/uL (4.7-6.1); White Blood Count 27.72 K/uL (4.8-10.8)
[2020-02-13 03:40] LABS: Albumin Level 3.3 gm/dl (3.4-5.0); BUN Creatinine Ratio 17.1 (10-20); Bilirubin Direct 2.1 mg/dl (0-0.2); Calcium 8.3 mg/dl (8.5-10.1); Creatinine Clr Calc Pharmacy 49.3 ml/min; Est GFR (Non-African American) 54.4; Magnesium 2.1 mg/dl (1.8-2.4); Potassium 4.5 mmol/L (3.5-5.1)
[2020-02-13 03:44] LABS: Basophils # (auto) 0.01 K/uL (0-0.2); Immature Granulocytes # (auto) 0.14 K/uL (0.00-0.02); Immature Granulocytes % (auto) 0.5 %; Lymphocytes # (auto) 1.99 K/uL (1.2-3.4); Lymphocytes % (auto) 7.2 %; Monocytes # (auto) 3.89 K/uL (0.11-0.59); Neutrophils # (auto) 21.69 K/uL (1.4-6.5); Neutrophils % (auto) 78.3 %
[2020-02-13 03:51] LABS: Bilirubin,Total 3.2 mg/dl (0.2-1); Phosphorus 2.3 mg/dl (2.5-4.9); Total Protein 6.5 gm/dl (6.4-8.2)
[2020-02-13] MEDS: metroNIDAZOLE 500 MG/100 ML BAG IV SCH ×3 (05:38→21:40)
[2020-02-13] MEDS: CEFEPIME 2,000 MG in SYRINGE 0 ML IV SCH ×2 (08:24→21:40)
[2020-02-13] MEDS ORDERED: NON-FORMULARY MEDICATION (Coenzyme Q10 200 mg capsule) PO SCH (09:00)
[2020-02-13] MEDS ORDERED: NON-FORMULARY MEDICATION (Glucosamine Hcl 1,500 mg tablet) PO SCH (09:00)
[2020-02-13] MEDS ORDERED: NON-FORMULARY MEDICATION (Calcium Citrate 250 mg calcium Tablet) PO SCH (09:00)
[2020-02-13] MEDS ORDERED: CHOLECALCIFEROL 1,000 UNITS 25 MCG TAB PO SCH (09:00)
[2020-02-13] MEDS ORDERED: ASPIRIN 81 MG ECTAB PO SCH (09:00)
[2020-02-13] MEDS ORDERED: NON-FORMULARY MEDICATION (Vitamin B Comp And C No.3 [B Complex Plus Vitamin C] 15-10-50-5- PO SCH (09:00)
[2020-02-13] MEDS ORDERED: ATORVASTATIN 40 MG TAB PO SCH (09:00)
--- NOTE | 2020-02-13 09:02 | Electrocardiogram Report ---
Test Reason : Blood Pressure : / mmHG Vent. Rate : 073 BPM Atrial Rate : 073 BPM P-R Int : 172 ms QRS Dur : 154 ms QT Int : 428 ms P-R-T Axes : 071 -72 082 degrees QTc Int : 471 ms Atrial-sensed ventricular-paced rhythm Abnormal ECG When compared with ECG of 30-JUN-2019 15:11, No significant change was found Confirmed by Ricardo Kingsley ([id number]) on 02/13/2020 9:02:09 AM Referred By: REFERRED SELF Confirmed By:Ricardo Kingsley
--- NOTE | 2020-02-13 09:13 | Cardiology Consultation ---
Date of Consultation February 13, 2020 Assessment & Plan (1) Acute cholecystitis: (2) Cerebral vascular disease: (3) Coronary artery disease: (4) PAD (peripheral artery disease): (5) Sick sinus syndrome: (6) Sleep related hypoxia: (7) Carotid stenosis: (8) Troponin level elevated: (9) Preop cardiovascular exam: It was my pleasure to see Mr. Hughes in consultation today. I do not believe that his minimal troponin elevation signifies any acute coronary syndrome, likely, increased myocardial demand due to acute cholelithiasis He is scheduled for surgery later today. I discussed the cardiovascular risk with the patient and his son, Yanick, by phone They are both counseled that I would place him as a high risk for any adverse perioperative cardiovascular event with the risk approximately greater than 5%. And that no further cardiac testing or intervention would further lower this risk. Particularly noting his advanced age, atherosclerotic disease and sleep-related hypoxia. They both state that they understand, they are accepting of that risk and wish to proceed with the surgery. No need to delay from a cardiac standpoint. Oral metoprolol should be continued throughout the perioperative period to help reduce risk. We will continue to follow postoperatively. History of Present Illness Reason for Consultation: Preop cardiovascular risk assessment Requesting Physician: Dr. Sanchez Attending Physician: Lluvia Sanchez, DO History of Present Illness It was my pleasure to see Mr. Hughes in cardiac consultation today February 13, 2020. He is a very pleasant 89-year-old gentleman who routinely follows with Dr. Ward of our cardiology practice. He presented to [facility] on 02/12/2020 with reports of confusion via EMS. He was found to have acute cholecystitis and admitted to the intensive care unit. Initial blood work showed a minimal troponin elevation and cardiology was consulted. Currently the patient states that he is feeling well. He notes his biggest complaint this point is abdominal bloating. He states the pain is relatively well controlled. Cardiac history 1. Atherosclerotic carotid disease status post carotid endarterectomy April 2008, right carotid, carotid duplex October 2017 without obstru ction. 2. Moderate ectatic nonobstructive coronary disease by cardiac catheterization in 2008. 3. History of sick sinus syndrome with borderline tachybrady syndrome status post dual-chamber pacemaker insertion in 2007. 4. Hyperlipidemia. 5. Mild hypertension 6. Nocturnal hypoxia on oxygen supplementation Allergies Allergy/AdvReac Type Severity Reaction Status Date / Time clavulanic acid Allergy Unknown UNKNOWN Verified 02/12/20 12:08 Sulfa (Sulfonamide Allergy Unknown Unknown Verified 02/12/20 12:08 Antibiotics) amoxicillin AdvReac Intermediate NAUSEA Verified 02/12/20 12:08 Penicillins AdvReac Intermediate NAUSEA/VOMI Verified 02/12/20 12:08 TING Home Medications Medication Instructions Recorded Confirmed Type cholecalciferol (vitamin D3) 25 1,000 units PO DAILY 10/06/18 02/12/20 History mcg (1,000 unit) capsule coenzyme Q10 200 mg capsule 200 mg PO DAILY 10/06/18 02/12/20 History glucosamine HCl 1,500 mg tablet 1,500 mg PO DAILY 10/06/18 02/12/20 History metoprolol tartrate 25 mg tablet 25 mg PO BID 10/06/18 02/12/20 History vitamin B comp and C no.3 15 mg-10 1 cap PO DAILY 10/06/18 02/12/20 History mg-50 mg-5 mg-300 mg capsule fluticasone propionate 50 1 sprays INTNAS DAILY PRN #18.2 gm 10/29/18 02/12/20 Rx mcg/actuation nasal spray,suspension alprazolam 0.25 mg tablet 0.25 mg PO DAILY PRN 01/14/19 02/12/20 History meclizine 25 mg tablet 25 mg PO DAILY PRN 01/14/19 02/12/20 History omeprazole 20 mg capsule,delayed 20 mg PO DAILY #90 cap 05/27/19 02/12/20 Rx release calcium citrate 500 mg PO DAILY 06/30/19 02/12/20 History isosorbide mononitrate 30 mg PO DAILY 06/30/19 02/12/20 History aspirin 81 mg PO QAM #32 tab 07/01/19 02/12/20 Rx atorvastatin 40 mg PO QAM #32 tab 07/01/19 02/12/20 Rx escitalopram oxalate 10 mg tablet 15 mg PO DAILY #135 tab 07/13/19 02/12/20 Rx tamsulosin 0.4 mg capsule 0.4 mg PO DAILY #90 cap 11/17/19 02/12/20 Rx amlodipine 2.5 mg tablet 2.5 mg PO DAILY 01/25/20 02/12/20 History turmeric root extract 500 mg 500 mg PO DAILY 01/25/20 02/12/20 History capsule Patient History Medical History (Updated 02/13/20 @ 11:55 by Joe Leonard DO) Actinic keratosis 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 Coronary artery disease (11/09/12) Essential hypertriglyceridemia Fatigue Gastroesophageal reflux disease Hearing loss Hyperglycemia Hyperlipidemia (11/09/12) Hypertension Low back pain Miliaria, apocrine Nocturia Nonocclusive coronary atherosclerosis of [place] coronary artery PAD (peripheral artery disease) Parotiditis Sick sinus syndrome Sleep related hypoxia Spinal stenosis of lumbar region without neurogenic claudication Vertigo (11/09/12) Vitamin D deficiency Surgical History H/O rotator cuff surgery (11/09/12) History of carotid endarterectomy History of colonoscopy History of heart surgery History of permanent cardiac pacemaker placement S/P rotator cuff repair Family History Unknown Bladder cancer Father Pneumonia Mother Stroke syndrome Brother Prostate cancer Lung cancer Osteogenesis imperfecta Son No problems noted. Social History Smoking Status: Never smoker Second Hand Exposure: No; Do You Dip or Chew Tobacco: No; Hx Alcohol Use: No Hx Substance Use: No Preferred Language: Telugu Communication Ability: Effective Visual Impairment: Limited Hearing Ability: Normal Truck Cleaner Required: No Beliefs That Will Affect Care: None marital status: Current Living Situation: Spouse current occupational status: retired Other Information That Helps Us Care for You: No Feels Safe at Home: Yes Safety Concerns: Feels Safe At This Time Childhood Exposure to Second-Hand Smoke: Yes caffeine: Yes Dental Care, Regularly: Yes Physical Activity Frequency: 3-4 Times per Week Physical Activity Frequency Comment: WALK Seatbelt Use: always Sunscreen Use: Yes Assistive Devices: Cane, Glasses and Oxygen - at Night Review of Systems Review of Systems: All systems reviewed & are unremarkable except as noted in HPI & below Physical Exam Physical Exam: General: Awake, alert and oriented x 3. No acute distress. HEENT: Normocephalic, atraumatic. Pupils equal, round and reactive to light and accommodation. Extraocular muscles are intact. Anicteric sclera. Moist mucous membranes. Neck: No JVD. No bruit. Cardiovascular: Regular. Positive S-4. Normal S-1 and S-2. No S-3. 3/6 mid to late systolic ejection murmur, greatest at the right sternal border, second intercostal space with radiation to the bilateral carotids. No rubs. Pulmonary: Clear to auscultation bilaterally. No rales, rhonchi, or wheezing. Abdomen: Bowel sounds x 4, soft. No rebound, guarding or tenderness. No organomegaly. Extremities: No clubbing, cyanosis or edema. +2 pedal pulses bilaterally. Skin: Warm and dry. Results & Data ([facility]) Vital Signs (Past 12 Hours) Vital Signs Temp Pulse Pulse Resp BP Pulse Ox 02/13/20 07:55 37 C 63 26 H 147/63 H 92 02/13/20 03:07 36.5 C 64 25 H 156/69 H 93 02/12/20 23:37 36.7 C 71 18 142/59 H 92 02/12/20 23:00 67
[2020-02-13] MEDS ORDERED: INDOMETHACIN 50 MG SUPP PR ONE ×2 (09:20→11:55)
--- NOTE | 2020-02-13 10:04 | Surgery Progress Note ---
Date of Service February 13, 2020 Assessment & Plan (1) Acute cholecystitis: Patient with acute cholecystitis and possible debris or stone in the common bile duct Also elevated cardiac enzymes Patient is for cardiology/medical evaluation this morning I have discussed with Dr. Joseluis Becerra the possibility of needing an ERCP We are considering moving ahead today if medically stable with ERCP and laparoscopic cholecystectomy I have discussed this with his son Yanick whose number is [phone] and he has given permission Patient does have some mild underlying dementia Admission and Anticipated Discharge Date Admission Date: February 12, 2020 Subjective Patient awake and alert his vital signs are stable His liver function studies did elevate White blood cell count is still elevated Review of Systems Review of Systems: All systems reviewed & are unremarkable except as noted in HPI & below Physical Exam Constitutional: well developed and well nourished; no acute distress Eyes: + anicteric sclerae Respiratory: normal respiratory effort; no respiratory distress Cardiovascular: Rate/Rhythm: regular rate Gastrointestinal (Abdomen): Inspection/Auscultation: + abdomen distended Skin: no rashes, warm and dry Neurologic: awake Psychiatric: Orientation: alert Results & Data ([facility]) Vital Signs (Past 12 Hours) Vital Signs Temp Pulse Pulse Resp BP Pulse Ox 02/13/20 07:55 37 C 63 26 H 147/63 H 92 02/13/20 03:07 36.5 C 64 25 H 156/69 H 93 02/12/20 23:37 36.7 C 71 18 142/59 H 92 02/12/20 23:00 67 PG Care Time/CCT Total # of Minutes Spent Total Time Spent with Patient: Total time spent is greater than 50% in coordination of care (as documented) at patient's floor/unit and/or counseling patient: Coding Level of Care Code 90542 Inpt Consult Level 4 Diagnoses Acute cholecystitis K81.0
--- NOTE | 2020-02-13 10:06 | Gastrointestinal Consultation ---
Date of Consultation February 13, 2020 Assessment & Plan (1) Acute cholecystitis: (2) Elevated LFTs: Pt is a 89 y/o male, who presented w confusion, n/v, abd pain and diarrhea; abd imaging studies & labs concerning for cholecystitis w possible biliary obstruction & cholangitis. - IVF support - Continue present IV antibx - Trend LFTs - Keep NPO for ERCP in OR by Dr. Chuckie Becerra; send Indomethacin 100mg AR to OR holding to be given for ERCP pre med - Timing of cholecystectomy per Surgery - Will follow along Supervising Physician Co-Signing Physician Notes I saw and evaluated the patient. They are consulted for evaluation of leukocytosis and elevated bilirubin in the setting of sepsis. Patient was admitted with right-sided abdominal discomfort and is to have a cholecystectomy performed later today. Physical exam Icterus, patient in obvious discomfort comfort right Upper quadrant tender to palpation Impression: Patient with signs and symptoms suggestive of cholecystitis and perhaps underlying cholangitis. Given the suspicion for cholangitis we will proceed with ERCP for biliary decompression. I discussed the risks of the procedure to include bleeding, infection, perforation, pancreatitis and failed biliary cannulation History of Present Illness Reason for Consultation: Possible biliary obstruction Requesting Physician: Dr. Bahman Jiménez Attending Physician: Dr. Chuckie Becerra History of Present Illness Pt is a 89 y/o male initially presented w weakness, AMS, ? TIA but this was ruled out. He had assciated n/v, diarrhea symptoms. Abdominal imaging studies notable for signs of cholecystitis, large gallstone also shown in gallbladder fundus, CBD 4mm. Labs notable for WBC of 29K, LFTs up: Tbili 3, AST/ALT 200s, Alk phos 116. Surgery (Dr. Jiménez) was consulted for possible cholecystectomy, and in turn GI was consulted for possible biliary obstruction/cholangitis. Allergies Allergy/AdvReac Type Severity Reaction Status Date / Time clavulanic acid Allergy Unknown UNKNOWN Verified 02/12/20 12:08 Sulfa (Sulfonamide Allergy Unknown Unknown Verified 02/12/20 12:08 Antibiotics) amoxicillin AdvReac Intermediate NAUSEA Verified 02/12/20 12:08 Penicillins AdvReac Intermediate NAUSEA/VOMI Verified 02/12/20 12:08 TING Home Medications Medication Instructions Recorded Confirmed Type cholecalciferol (vitamin D3) 25 1,000 units PO DAILY 10/06/18 02/12/20 History mcg (1,000 unit) capsule coenzyme Q10 200 mg capsule 200 mg PO DAILY 10/06/18 02/12/20 History glucosamine HCl 1,500 mg tablet 1,500 mg PO DAILY 10/06/18 02/12/20 History metoprolol tartrate 25 mg tablet 25 mg PO BID 10/06/18 02/12/20 History vitamin B comp and C no.3 15 mg-10 1 cap PO DAILY 10/06/18 02/12/20 History mg-50 mg-5 mg-300 mg capsule fluticasone propionate 50 1 sprays INTNAS DAILY PRN #18.2 gm 10/29/18 02/12/20 Rx mcg/actuation nasal spray,suspension alprazolam 0.25 mg tablet 0.25 mg PO DAILY PRN 01/14/19 02/12/20 History meclizine 25 mg tablet 25 mg PO DAILY PRN 01/14/19 02/12/20 History omeprazole 20 mg capsule,delayed 20 mg PO DAILY #90 cap 05/27/19 02/12/20 Rx release calcium citrate 500 mg PO DAILY 06/30/19 02/12/20 History isosorbide mononitrate 30 mg PO DAILY 06/30/19 02/12/20 History aspirin 81 mg PO QAM #32 tab 07/01/19 02/12/20 Rx atorvastatin 40 mg PO QAM #32 tab 07/01/19 02/12/20 Rx escitalopram oxalate 10 mg tablet 15 mg PO DAILY #135 tab 07/13/19 02/12/20 Rx tamsulosin 0.4 mg capsule 0.4 mg PO DAILY #90 cap 11/17/19 02/12/20 Rx amlodipine 2.5 mg tablet 2.5 mg PO DAILY 01/25/20 02/12/20 History turmeric root extract 500 mg 500 mg PO DAILY 01/25/20 02/12/20 History capsule Patient History Medical History (Updated 02/13/20 @ 10:08 by UZIAR Hernandez) Actinic keratosis 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 Coronary artery disease (11/09/12) Essential hypertriglyceridemia Fatigue Gastroesophageal reflux disease Hearing loss Hyperglycemia Hyperlipidemia (11/09/12) Hypertension Low back pain Miliaria, apocrine Nocturia Nonocclusive coronary atherosclerosis of [place] coronary artery PAD (peripheral artery disease) Parotiditis Sick sinus syndrome Sleep related hypoxia Spinal stenosis of lumbar region without neurogenic claudication Vertigo (11/09/12) Vitamin D deficiency Surgical History H/O rotator cuff surgery (11/09/12) History of carotid endarterectomy History of colonoscopy History of heart surgery History of permanent cardiac pacemaker placement S/P rotator cuff repair Family History Unknown Bladder cancer Father Pneumonia Mother Stroke syndrome Brother Prostate cancer Lung cancer Osteogenesis imperfecta Son No problems noted. Social History Smoking Status: Never smoker Second Hand Exposure: No; Do You Dip or Chew Tobacco: No; Hx Alcohol Use: No Hx Substance Use: No Preferred Language: Northern Irish Communication Ability: Effective Visual Impairment: Limited Hearing Ability: Normal Invoicing Machine Operator Required: No Beliefs That Will Affect Care: None marital status: Current Living Situation: Spouse current occupational status: retired Other Information That Helps Us Care for You: No Feels Safe at Home: Yes Safety Concerns: Feels Safe At This Time Childhood Exposure to Second-Hand Smoke: Yes caffeine: Yes Dental Care, Regularly: Yes Physical Activity Frequency: 3-4 Times per Week Physical Activity Frequency Comment: WALK Seatbelt Use: always Sunscreen Use: Yes Assistive Devices: Cane, Glasses and Oxygen - at Night Physical Exam Constitutional: WD/WN, vitals as above well groomed, cooperative and comfortable Eyes: PERRL, conjunctivae normal, anicteric sclerae ENMT: external ear and nose normal, oropharynx normal Respiratory: normal respiratory effort, lungs clear to auscultation Cardiovascular: RRR, no murmur, no edema Gastrointestinal (Abdomen): normal bowel sounds, soft, nontender, no hepatosplenomegaly Skin: no rashes, warm and dry + jaundice Psychiatric: A+Ox3, euthymic affect Lymphatic: no lymphedema Results & Data ([facility]) Vital Signs (Past 12 Hours) Vital Signs Temp Pulse Pulse Resp BP Pulse Ox 02/13/20 07:55 37 C 63 26 H 147/63 H 92 02/13/20 03:07 36.5 C 64 25 H 156/69 H 93 02/12/20 23:37 36.7 C 71 18 142/59 H 92 02/12/20 23:00 67
[2020-02-13] MEDS ORDERED: IOVERSOL 50ml IV ONE (11:28)
[2020-02-13] MEDS ORDERED: ONDANSETRON INJ 2 MG/ML 2 ML VIAL ONE (11:38)
[2020-02-13] MEDS ORDERED: fentaNYL citrate 100 MCG/2 ML VIAL ONE ×2 (11:38→14:00)
[2020-02-13] MEDS ORDERED: PROPOFOL IV EMULSION 10 MG/ML 20 ML VIAL IV ONE (11:38)
[2020-02-13] MEDS ORDERED: LIDOCAINE HCL 2% 2 ML VIAL/AMP(20MG/ML) INFIL ONE (11:38)
[2020-02-13] MEDS ORDERED: ROCURONIUM BROMIDE 10 MG/ML 5 ML VIAL IV ONE ×2 (11:38→13:35)
[2020-02-13] MEDS ORDERED: BUPIVACAINE 0.5 % 5 MG/1 ML MPF 30ML VIAL ONE (11:49)
--- NOTE | 2020-02-13 12:09 | Anesthesiology Consultation ---
Date of Service February 13, 2020 Assessment & Plan Chart Review Chart Review: Acceptable Risk for Surgery and Patient NOT seen in Pre Admission Testing Consults Requested none ASA ASA4 Proposed Anesthesia Anesthesia Type: General Anesthesia Line Insertion: Arterial line Risk / Benefits Reviewed With: PT / POA / Parent / Guardian, Accepts Plan and Informed Consent Obtained Additional Comments: covid test negative History Surgery Operation Date: 02/13/20 12:00 Proposed Procedures p Laparoscopic Cholecystectomy - Bahman Jiménez MD, FACS s Endoscopic Retrograde Cholangiopancreatogram - Chuckie Becerra DO Height/Weight Height: 6 ft 2 in Weight: 89.2 kg Allergies Allergy/AdvReac Type Severity Reaction Status Date / Time clavulanic acid Allergy Unknown UNKNOWN Verified 02/12/20 12:08 Sulfa (Sulfonamide Allergy Unknown Unknown Verified 02/12/20 12:08 Antibiotics) amoxicillin AdvReac Intermediate NAUSEA Verified 02/12/20 12:08 Penicillins AdvReac Intermediate NAUSEA/VOMI Verified 02/12/20 12:08 TING Medications Home Medications Medication Instructions Recorded Confirmed Last Taken cholecalciferol (vitamin D3) 25 1,000 units PO DAILY 10/06/18 02/12/20 02/11/20 mcg (1,000 unit) capsule coenzyme Q10 200 mg capsule 200 mg PO DAILY 10/06/18 02/12/20 02/11/20 glucosamine HCl 1,500 mg tablet 1,500 mg PO DAILY 10/06/18 02/12/20 02/11/20 metoprolol tartrate 25 mg tablet 25 mg PO BID 10/06/18 02/12/20 02/11/20 vitamin B comp and C no.3 15 mg-10 1 cap PO DAILY 10/06/18 02/12/20 02/11/20 mg-50 mg-5 mg-300 mg capsule fluticasone propionate 50 1 sprays INTNAS DAILY PRN #18.2 gm 10/29/18 02/12/20 02/11/20 mcg/actuation nasal spray,suspension alprazolam 0.25 mg tablet 0.25 mg PO DAILY PRN 01/14/19 02/12/20 02/11/20 meclizine 25 mg tablet 25 mg PO DAILY PRN 01/14/19 02/12/20 02/11/20 omeprazole 20 mg capsule,delayed 20 mg PO DAILY #90 cap 05/27/19 02/12/20 02/11/20 release calcium citrate 500 mg PO DAILY 06/30/19 02/12/20 02/11/20 isosorbide mononitrate 30 mg PO DAILY 06/30/19 02/12/20 02/11/20 aspirin 81 mg PO QAM #32 tab 07/01/19 02/12/20 02/11/20 atorvastatin 40 mg PO QAM #32 tab 07/01/19 02/12/20 02/11/20 escitalopram oxalate 10 mg tablet 15 mg PO DAILY #135 tab 07/13/19 02/12/20 tamsulosin 0.4 mg capsule 0.4 mg PO DAILY #90 cap 11/17/19 02/12/20 02/11/20 amlodipine 2.5 mg tablet 2.5 mg PO DAILY 01/25/20 02/12/20 02/11/20 turmeric root extract 500 mg 500 mg PO DAILY 01/25/20 02/12/20 02/11/20 capsule Active Medications Generic Name Dose Route Start Last Admin Trade Name Freq PRN Reason Stop Dose Admin Sodium Chloride 1,000 mls @ 75 mls/hr 02/12/20 19:31 02/12/20 21:07 Nss 1000ml IV 03/13/20 19:30 75 mls/hr .[id number] ROSEMARY Administration Cefepime HCl 2,000 mg/ Syringe 20 mls @ 5 mls/min 02/12/20 21:00 02/13/20 08:24 IV 02/22/20 20:59 5 mls/min Q12H ROSEMARY Administration Protocol Metronidazole 500 mg in 100 mls @ 100 mls/hr 02/12/20 21:00 02/13/20 06:38 Flagyl IV 02/22/20 20:59 Infused Q8H ROSEMARY Infusion Metoprolol Tartrate 25 mg 02/12/20 21:00 02/12/20 21:04 Metoprolol Tartrate 25 Mg Tab PO 03/13/20 20:59 25 mg BID ROSEMARY Administration NPO Date Last Intake of Fluids: 02/12/20 Time Last Intake of Fluids: 12:00 Date Last Intake of Solids: 02/12/20 Time Last Intake of Solids: 09:00 Past Medical History Medical History Actinic keratosis 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 Coronary artery disease (11/09/12) Essential hypertriglyceridemia Fatigue Gastroesophageal reflux disease Hearing loss Hyperglycemia Hyperlipidemia (11/09/12) Hypertension Low back pain Miliaria, apocrine Nocturia Nonocclusive coronary atherosclerosis of [place] coronary artery PAD (peripheral artery disease) Parotiditis Sick sinus syndrome Sleep related hypoxia Spinal stenosis of lumbar region without neurogenic claudication Vertigo (11/09/12) Vitamin D deficiency Exercise / Class Metabolic Activity III < 4 Walking/Shop/Light housework Past Family History Family History Unknown Bladder cancer Father Pneumonia Mother Stroke syndrome Brother Prostate cancer Lung cancer Osteogenesis imperfecta Son No problems noted. Past Surgical History Surgical History H/O rotator cuff surgery (11/09/12) History of carotid endarterectomy History of colonoscopy History of heart surgery History of permanent cardiac pacemaker placement S/P rotator cuff repair Past Anesthesia History No Hx of Anesthesia Complications and No Family Hx of Anesthesia Complications History of PONV No Hx of PONV and No Hx of Motion Sickness Social History Smoking Status: Never smoker Do You Dip or Chew Tobacco: No Hx Alcohol Use: No Hx Substance Use: No substance use type: does not use Physical Exam Vital Signs Last Vital Signs Temp 36.7 C 02/13/20 11:45 Pulse 64 02/13/20 11:45 Resp 22 02/13/20 11:45 BP 152/66 H 02/13/20 11:45 Pulse Ox 92 02/13/20 11:45 Constitutional not obese ENMT Mouth: no dentition abnormality Thyromental Distance: > or= 3.5 Finger Breadths Mallampati Class: II Neck normal visual inspection and trachea midline; neck extension not limited Respiratory normal respiratory effort Auscultation: + diminished lung sounds and + crackles Cardiovascular Rate/Rhythm: regular rate and regular rhythm Heart Sounds: no murmur Vessels: no carotid bruit Chest (Breasts) Chest: + pacemaker (left subclavian) Musculoskeletal Spine: normal cervical ROM Extremities: extremities normal to inspection Neurologic moves all extremities Motor/Sensory: no sensory deficit Psychiatric Orientation: alert and oriented x 3 Testing Laboratory Results 02/13/20 03:14 02/13/20 03:14 PT 11.6 Seconds (9.0-12.0) 02/12/20 11:38 INR 1.1 (0.9-1.1) 02/12/20 11:38 Urine Color Yellow 02/12/20 13:51 Urine Appearance Clear (Clear) 02/12/20 13:51 Urine pH 5.5 (4.5-7.5) 02/12/20 13:51 Ur Specific [place] > 1.045 (1.000-1.030) H 02/12/20 13:51 Urine Protein 2+ (Negative) H 02/12/20 13:51 Urine Glucose (UA) Negative (Negative) 02/12/20 13:51 Urine Ketones Negative (Negative) 02/12/20 13:51 Urine Nitrite Negative (Negative) 02/12/20 13:51 Ur Leukocyte Esterase Negative (Negative) 02/12/20 13:51 Urine WBC (Auto) 1-5 /hpf (0-5) 02/12/20 13:51 Urine RBC (Auto) 0-4 /hpf (0-4) 02/12/20 13:51 U Hyaline Cast (Auto) 1-5 /lpf (0-5) 02/12/20 13:51 U Epithel Cells (Auto) 5-10 /lpf (0-5) H 02/12/20 13:51 Urine Bacteria (Auto) Negative (Negative) 02/12/20 13:51 Electrocardiogram Date: 02/12/20 atrial [id number] rhythm at 73 Chest X-Ray Date: 02/12/20 Findings: + cardiomegaly, + pulmonary vascular congestion and + other (left subclavian pacemaker)
[2020-02-13] MEDS ORDERED: ePHEDrine sulfate 50 MG/ML AMP IV PRN (12:59)
[2020-02-13] MEDS ORDERED: HYDROmorphone INJ 1 MG/ML SYRINGE IV PRN (12:59)
[2020-02-13] MEDS ORDERED: ONDANSETRON INJ 2 MG/ML 2 ML VIAL IV PRN (12:59)
[2020-02-13] MEDS ORDERED: PHENYLEPHRINE 100MCG/ML 5ML SYR IV PRN (12:59)
[2020-02-13] MEDS ORDERED: LABETALOL HCL IV 5 MG/ML 20ML IV PRN (12:59)
[2020-02-13] MEDS ORDERED: ATROPINE SULFATE 0.1 MG/ML 10ML SYR IV PRN (12:59)
[2020-02-13] MEDS ORDERED: fentaNYL citrate 100 MCG/2 ML VIAL IV PRN (12:59)
--- NOTE | 2020-02-13 13:13 | Post Operative Brief Note ---
Immediate Post Op Note v1 Date of Surgery February 13, 2020 Pre & Post Diagnosis Operation Date: 02/13/20 12:00 Pre-Op Diagnosis: Acute Cholecystitis Post-Op Diagnosis: choledocholithiasis I identified the patient and participated in the time-out.: Yes Procedure Operation Date: 02/13/20 12:00 Actual Procedures s Endoscopic Retrograde Cholangiopancreatography in Operating Room(Not Applicable) - Chuckie Becerra DO Surgeon Chuckie Becerra DO Help Desk Administrator None Estimated Blood Loss 0 Findings Consistent with Post-Op Diagnosis
--- NOTE | 2020-02-13 13:17 | GI REPORT ---
Patient Name: Yobani Brown Procedure Date: 02/13/2020 11:53 AM Date of : 1930 Admit Type: Inpatient Age: 89 Gender: Male Attending MD: Chuckie Becerra DO Procedure: ERCP Providers: Chuckie Becerra DO Referring MD: Lluvia Sanchez, Aly Ramirez Indications: Suspected ascending cholangitis Medicines: General Anesthesia Complications: No immediate complications. Estimated blood loss: Minimal. Estimated Blood Loss: Estimated blood loss was minimal. Procedure: Pre-Anesthesia Assessment: - Prior to the procedure, a History and Physical was performed, and patient medications, allergies and sensitivities were reviewed. The patient's tolerance of previous anesthesia was reviewed. - The risks and benefits of the procedure and the sedation options and risks were discussed with the patient. All questions were answered and informed consent was obtained. - Patient identification and proposed procedure were verified prior to the procedure by the physician, the nurse and the gym instructor. The procedure was verified in the procedure room. - Pre-procedure physical examination revealed no contraindications to sedation. - ASA Grade Assessment: IV - A patient with severe systemic disease that is a constant threat to life. - After reviewing the risks and benefits, the patient was deemed in satisfactory condition to undergo the procedure. - The anesthesia plan was to use general anesthesia. - Immediately prior to administration of medications, the patient was re-assessed for adequacy to receive sedatives. - The heart rate, respiratory rate, oxygen saturations, blood pressure, adequacy of pulmonary ventilation, and response to care were monitored throughout the procedure. - The physical status of the patient was re-assessed after the procedure. After obtaining informed consent, the scope was passed under direct vision. Throughout the procedure, the patient's blood pressure, pulse, and oxygen saturations were monitored continuously. The Scope was introduced through the mouth, and advanced to the duodenum and used to cannulate the bile duct. The ERCP was accomplished without difficulty. The patient tolerated the procedure well. Findings: The cabin agent film was normal. The esophagus was successfully intubated under direct vision without detailed examination of the pharynx, larynx, and associated structures, and upper GI tract. The upper GI tract was grossly normal. The major papilla was normal. The bile duct was deeply cannulated with the short-nosed traction sphincterotome (Rx 39) and 0.025 in guidewire. Contrast was injected. I personally interpreted the bile duct images. Contrast extended to the entire biliary tree. The lower third of the main bile duct contained filling defect(s) thought to be a stone. The biliary orifice was stenotic. This appeared benign. Biliary sphincterotomy was made with a monofilament Dreamtome sphincterotome using ERBE electrocautery. There was no post-sphincterotomy bleeding. The biliary tree was swept with an 11.5 mm balloon starting at the bifurcation. Many stones were removed. No stones remained. Pus was swept from the duct. One 10 Fr by 8 cm biliary stent with a single external flap and a single internal flap was placed 8 cm into the common bile duct. Bile flowed through the stent. The stent was in good position. The endoscope was withdrawn from the patient. The total fluoroscopy exposure time was 1 minute and 20 seconds. Indomethacin 100 mg was given via suppository to decrease the risk of post-ERCP pancreatitis (PEP). Impression: - The major papilla appeared normal. - Biliary papillary stenosis, benign. - A filling defect consistent with a stone was seen on the cholangiogram. - Choledocholithiasis was found. Complete removal was accomplished by biliary sphincterotomy and balloon extraction. - A biliary sphincterotomy was performed. - The biliary tree was swept and pus was found. - One biliary stent was placed into the common bile duct. - Indomethacin given to decrease risk of post-ERCP pancreatitis. Recommendation: - Repeat ERCP in 6 weeks to remove stent. - Use broad spectrum antibiotics for 2 weeks. - Cholecystectomy as planned by Dr. Jiménez. Jackelyn Parsons DO 02/13/2020 1:17:16 PM This report has been signed electronically. Note Initiated On: 02/13/2020 11:53 AM Number of Addenda: 0 I attest to the content of the Intraoperative Record and orders documented therein, exceptions below {[id number]}
[2020-02-13] MEDS ORDERED: FLOSEAL HEMOSTATIC MATRIX 10ML TOP ONE (13:38)
[2020-02-13] MEDS ORDERED: NEOSTIGMINE METHYLSULFATE 5 MG/5 ML SYR ONE (13:39)
[2020-02-13] MEDS ORDERED: GLYCOPYRROLATE 0.2 MG/ML VIAL ONE (13:39)
--- NOTE | 2020-02-13 13:45 | Fluoroscopy Report ---
[place] ERCP biliary ductal HISTORY: 89 years-old Male ERCP IN OR acute right upper quadrant abdominal pain COMPARISON: CT abdomen and pelvis 02/13/2020 TECHNIQUE: 13 spot fluoroscopic images of the abdominal right upper quadrant were obtained utilizing 80.9 seconds fluoroscopy time FINDINGS: Endoscope is noted within the duodenum. There is cannulation of the common bile duct with retrograde injection of contrast. Tiny filling defects of the mid and distal common bile duct may reflect air bu bbles. There is prominence of the common bile duct without appreciable intrahepatic biliary ductal di lation. Contrast is seen flowing from the common bile duct into the duodenum. The last image demonstr ates apparent deployment of a common bile duct stent which appears to be in satisfactory positioning. IMPRESSION: Fluoroscopic assistance as above. ACT 112: Negative or not required by law. The above report was generated using voice recognition software. It may contain grammatical, syntax o r spelling errors. Electronically signed by: Vimal Marvin M.D. 02/13/2020 1:43 PM
--- NOTE | 2020-02-13 14:07 | Post Operative Brief Note ---
[facility] Immediate Post Op with CF Date of Surgery February 13, 2020 Pre & Post Diagnosis Operation Date: 02/13/20 12:00 Pre-Op Diagnosis: Acute Cholecystitis Post-Op Diagnosis: Acute Cholecystitis, gangrenous cholecystitis with hydrops I identified the patient and participated in the time-out.: Yes Procedure Operation Date: 02/13/20 12:00 Actual Procedures p Laparoscopic Cholecystectomy(Not Applicable) - Bahman Jiménez MD, FACS s Endoscopic Retrograde Cholangiopancreatography in Operating Room(Not Appli cable) - Chuckie Becerra DO Surgeon Bahman Jiménez MD, FACS Foley Artist None Estimated Blood Loss 20 Findings Consistent with Post-Op Diagnosis Specimens Specimen Description: A. Gallbladder Drains Ye-[place]ouard Drain (15 [place] round)
--- NOTE | 2020-02-13 15:01 | Anesthesiology Progress Note ---
Date of Service February 13, 2020 Anesthesia Post Procedure Vital Signs Vital Signs: Temp Pulse Pulse Pulse Resp BP BP 02/13/20 14:50 65 16 150/61 H 02/13/20 14:40 65 20 160/72 H 02/13/20 14:30 63 16 141/60 H 02/13/20 14:21 36.9 C 62 12 142/61 H 02/13/20 11:45 36.7 C 64 22 152/66 H 02/13/20 11:10 37.1 C 62 24 146/61 H 02/13/20 08:00 63 02/13/20 07:55 37 C 63 26 H 147/63 H 02/13/20 03:07 36.5 C 64 25 H 156/69 H 02/12/20 23:37 36.7 C 71 18 142/59 H 02/12/20 23:00 67 02/12/20 19:32 36.8 C 80 22 150/61 H 02/12/20 18:00 22 162/82 H 02/12/20 17:30 22 181/77 H 02/12/20 17:27 19 170/71 H 02/12/20 17:25 88 23 170/71 H 02/12/20 16:30 23 158/68 H 02/12/20 16:00 23 167/77 H 02/12/20 15:30 33 H 182/84 H Pulse Ox 02/13/20 14:50 93 02/13/20 14:40 95 02/13/20 14:30 94 02/13/20 14:21 83 L 02/13/20 11:45 92 02/13/20 11:10 92 02/13/20 08:00 02/13/20 07:55 92 02/13/20 03:07 93 02/12/20 23:37 92 02/12/20 23:00 02/12/20 19:32 90 02/12/20 18:00 94 02/12/20 17:30 95 02/12/20 17:27 93 02/12/20 17:25 94 02/12/20 16:30 94 02/12/20 16:00 94 02/12/20 15:30 94 Transfer of Care Handoff Completed per policy Notes Mental Status: alert / awake / arousable and participated in evaluation Patient Amnestic to Procedure: Yes Nausea / Vomiting: adequately controlled Pain: adequately controlled Airway Patency, RR, SpO2: stable & adequate BP & HR: stable & adequate Hydration State: stable & adequate Anesthetic Complications: no major complications apparent
[2020-02-13] MEDS ORDERED: ACETAMINOPHEN 325 MG TAB PO PRN (15:18)
[2020-02-13] MEDS: SODIUM CHLORIDE 0.9% 1000ML 1,000 ML IV SCH (15:29)
[2020-02-13] MEDS: amLODIPine BESYLATE 5 MG TAB PO SCH (15:38)
[2020-02-13] MEDS: ASPIRIN 81 MG ECTAB PO SCH (15:38)
[2020-02-13] MEDS: ATORVASTATIN 40 MG TAB PO SCH (15:40)
[2020-02-13] MEDS: ISOSORBIDE MONO EXTENDED REL 30 MG TABCR PO SCH (15:40)
[2020-02-13] MEDS: METOPROLOL TARTRATE 25 MG TAB PO SCH ×2 (15:41→21:40)
[2020-02-13] MEDS: CALCIUM CARBONATE 1250MG TAB PO SCH (15:41)
[2020-02-13] MEDS: ESCITALOPRAM OXALATE 10 MG TAB PO SCH (15:41)
[2020-02-13] MEDS: PANTOprazole 40 MG TAB PO SCH (15:42)
[2020-02-13] MEDS: VITAMIN B COMPLEX TAB PO SCH (15:42)
[2020-02-13] MEDS: CHOLECALCIFEROL 1,000 UNITS 25 MCG TAB PO SCH (15:43)
[2020-02-13] MEDS: TAMSULOSIN HCL 0.4 MG CAP PO SCH (17:39)
--- NOTE | 2020-02-13 17:43 | Hospitalist Progress Note ---
Date of Service February 13, 2020 Assessment & Plan (1) Acute cholecystitis: (1) Acute cholecystitis: Patient with leukocytosis in excess of 28,000. CT findings and ultrasound findings concerning for acute cholecystitis with pericholecystic fluid and gallbladder wall thickening. Patient presented with confusion from earlier today. Likely indicative of underlying infection. Thankfully, patient without any profound hemodynamic compromise at this point. Initially received Mefoxin in the emergency department. Will broaden to cefepime and Flagyl as the patient is allergic to penicillins. ERCP on 02/[address] Becerra, stent placed that will need repeat ERCP in 6 weeks for d/c stent s/p lap larissa on 02/[address] Jiménez Will hold on anticoagulation with anticipated surgical date in the next several hours. (2) Confusion: Extensive evaluation performed in the emergency department. No focal neurological deficits on exam and imaging studies without acute findings. Patient with likely degree of encephalopathy from underlying cholecystitis alone. Continue to monitor for any neurological changes as patient is with recent TIA in the last 8 months. CTA head/neck neg for acute (3) NSTEMI (non-ST elevated myocardial infarction): Troponin of 0.110 on admission and essentially unchanged x3 total EKG demonstrates paced rhythm without other ability to discern any ST changes. Will trend troponin. No complaints of chest pain or other sequela of ACS. Likely demand in the setting of acute cholecystitis. Cardiology is following (4) Depression: Continue home medications as prescribed. (5) Coronary artery disease: Will continue home medications. Certainly concerning with elevated troponin in this patient. Please see above NSTEMI recommendations. (6) Hyperglycemia: PSG's per unit protocol. (7) Hypertension: Continue home medications as tolerated. Would be cautious with providing home meds if moderate drop in blood pressure appreciated secondary to patient's underlying infection and concern for progression to sepsis. (8) Sleep related hypoxia: Supplemental oxygen as needed. (2) DVT prophylaxis: SCDs given OR status Admission and Anticipated Discharge Date Admission Date: February 12, 2020 Subjective Pt is resting post-op. States he ate a bit without issue. Denies current pain. Pt denies fever, SOB, chest pain, abd pain, n/v/c/d, LE pain or swelling. Review of Systems Review of Systems: Pertinent positives and negatives reviewed in HPI--all others negative Physical Exam Constitutional: WD/WN, vitals as above Eyes: normal visual andino by confrontation and + anicteric sclerae Neck: normal visual inspection and trachea midline Respiratory: normal respiratory effort, lungs clear to auscultation Cardiovascular: Rate/Rhythm: regular rate and regular rhythm Gastrointestinal (Abdomen): Inspection/Auscultation: + abdomen distended (mild) Percussion/Palpation: abdomen soft Musculoskeletal: Head/Neck/Chest: normocephalic and head atraumatic negative for edema, peripheral pulses intact Skin: no rashes, warm and dry Neurologic: awake; not confused Speech / Cognition: normal speech Psychiatric: A+Ox3, euthymic affect Results & Data Results & Data ([facility]) Vital Signs (Past 12 Hours) Vital Signs Temp Pulse Pulse Pulse Resp BP Pulse Ox 02/13/20 16:04 36.5 C 60 17 141/58 H 92 02/13/20 16:00 61 02/13/20 15:45 60 16 147/59 H 92 02/13/20 15:00 37 C 61 17 145/62 H 92 02/13/20 14:50 65 16 150/61 H 93 02/13/20 14:40 65 20 160/72 H 95 02/13/20 14:30 63 16 141/60 H 94 02/13/20 14:21 36.9 C 62 12 142/61 H 83 L 02/13/20 11:45 36.7 C 64 22 152/66 H 92 02/13/20 11:10 37.1 C 62 24 146/61 H 92 02/13/20 08:00 63 02/13/20 07:55 37 C 63 26 H 147/63 H 92 PG Care Time/CCT Total # of Minutes Spent Total Time Spent with Patient: Total time spent is greater than 50% in coordination of care (as documented) at patient's floor/unit and/or counseling patient: Coding Level of Care Code 89651 Subseq Hosp Care Lvl 3 Diagnoses Acute cholecystitis K81.0 DVT prophylaxis Z29.9
--- NOTE | 2020-02-13 18:59 | Operative Report (OR) ---
DATE OF OPERATION: 02/13/2020 NAME OF OPERATION: Laparoscopic cholecystectomy. PREOPERATIVE DIAGNOSIS: Acute cholecystitis. POSTOPERATIVE DIAGNOSIS: Acute cholecystitis with necrotizing cholecystitis. STAFF SURGEON: Bahman Jiménez MD. ICE HANDLER: Morgan Ludwig PA-C. ANESTHESIA: General. DESCRIPTION OF PROCEDURE: The patient was in the operating room and underwent ERCP, then his abdomen was prepped and draped for laparoscopic cholecystectomy. 0.5% plain Marcaine was used to anesthetize all incisions. Incision was made above the umbilicus, carrying dissection down, placing a Veress needle producing pneumoperitoneum, placing an 11 mm port. Under visualization, three 5 mm ports were placed, 1 cephalad and 2 laterally. Gallbladder showed acute adhesions, it was severely inflamed. It was gangrenous. It was aspirated of bile, which was clear showing hydrops. We carried out dissection at the nydia hepatis showing severe inflammation and I was able to identify the proximal gallbladder and it was transected at this level with clips placed. The cystic artery was identified and clipped. The gallbladder was severely edematous and necrotic. It was dissected away from the liver bed and placed in an Endobag. Irrigation was performed. FloSeal was placed into the hepatic bed and a 15 round Ye-Edouard drain placed through the lateral 5 mm port site into the subhepatic space, secured to the skin using 3-0 nylon suture. The gallbladder was placed in an Endobag and removed through the umbilical site. The umbilical fascia closed using 0 PDS suture. Skin reapproximated using 4-0 nylon suture. Drain was placed to suction bulb. The patient was transferred to recovery room in stable condition. I attest to the content of the Intraoperative Record and any orders documented therein. Any exception s are noted below.
[2020-02-13] MEDS: DOCUSATE SODIUM/SENNA 50/8.6MG TAB PO SCH (21:41)
[2020-02-14] MEDS: metroNIDAZOLE 500 MG/100 ML BAG IV SCH ×3 (05:02→20:56)
[2020-02-14] MEDS: SODIUM CHLORIDE 0.9% 1000ML 1,000 ML IV SCH ×2 (05:02→17:33)
[2020-02-14] MEDS: ACETAMINOPHEN 325 MG TAB PO PRN ×2 (05:33→21:11)
--- NOTE | 2020-02-14 06:11 | Surgery Progress Note ---
Date of Service February 14, 2020 Assessment & Plan (1) Status post laparoscopic cholecystectomy: Patient with necrotizing cholecystitis and common bile duct obstruction from choledocho lithiasis Also admitted with sepsis He underwent ERCP with stone removal and stent placement and then laparoscopic cholecystectomy His gallbladder was severely gangrenous and necrotic Currently he is doing relatively well-continue IV antibiotics Advance his diet, monitor him for an ileus which would not be unexpected Admission and Anticipated Discharge Date Admission Date: February 12, 2020 Results & Data ([facility]) Vital Signs (Past 12 Hours) Vital Signs Temp Pulse Resp BP Pulse Ox 02/14/20 04:03 36.7 C 61 20 149/66 H 91 02/13/20 23:18 36.7 C 62 18 127/55 L 98 PG Care Time/CCT Total # of Minutes Spent Total Time Spent with Patient: Total time spent is greater than 50% in coordination of care (as documented) at patient's floor/unit and/or counseling patient: Coding Level of Care Code None Diagnoses Status post laparoscopic cholecystectomy Z90.49
[2020-02-14 06:26] LABS: Albumin Globulin Ratio 0.8 (0.9-2); Albumin Level 2.7 gm/dl (3.4-5.0); BUN Creatinine Ratio 26.6 (10-20); Bilirubin Direct 0.6 mg/dl (0-0.2); Bilirubin,Total 1.5 mg/dl (0.2-1); Calcium 8.2 mg/dl (8.5-10.1); Creatinine Clr Calc Pharmacy 54.4 ml/min; Est GFR (Non-African American) 61.2; Globulin 3.2 gm/dl (2.5-4.0); Phosphorus 2.2 mg/dl (2.5-4.9); Potassium 4.3 mmol/L (3.5-5.1); Total Protein 5.9 gm/dl (6.4-8.2)
[2020-02-14 06:34] LABS: Hematocrit (blood only) 41.8 % (42-52); Hemoglobin 13.1 g/dL (14.0-18.0); Mean Corpuscular Hgb Conc 31.3 g/dL (32-36); Mean Corpuscular Volume 92.7 fL (80-100); Mean Platelet Volume 13.5 fL (7.4-10.4); Platelet Count 131 K/uL (130-400); RDW Coefficient of Variation 13.9 % (11.5-14.5); RDW Standard Deviation 47.5 fL (36.4-46.3); Red Blood Count 4.51 M/uL (4.7-6.1); White Blood Count 17.76 K/uL (4.8-10.8)
[2020-02-14 06:35] LABS: Basophils # (auto) 0.01 K/uL (0-0.2); Basophils % (auto) 0.1 %; Immature Granulocytes # (auto) 0.18 K/uL (0.00-0.02); Lymphocytes # (auto) 1.32 K/uL (1.2-3.4); Lymphocytes % (auto) 7.4 %; Monocytes # (auto) 2.49 K/uL (0.11-0.59); Neutrophils # (auto) 13.76 K/uL (1.4-6.5); Neutrophils % (auto) 77.5 %; Platelet Estimate Decreased (Normal)
[2020-02-14] MEDS: CEFEPIME 2,000 MG in SYRINGE 0 ML IV SCH ×2 (08:04→20:18)
[2020-02-14] MEDS: amLODIPine BESYLATE 5 MG TAB PO SCH (09:49)
[2020-02-14] MEDS: DOCUSATE SODIUM/SENNA 50/8.6MG TAB PO SCH ×2 (09:50→20:18)
[2020-02-14] MEDS: METOPROLOL TARTRATE 25 MG TAB PO SCH ×2 (09:50→20:18)
[2020-02-14] MEDS: ISOSORBIDE MONO EXTENDED REL 30 MG TABCR PO SCH (09:50)
[2020-02-14] MEDS: ESCITALOPRAM OXALATE 10 MG TAB PO SCH (09:51)
[2020-02-14] MEDS: ATORVASTATIN 40 MG TAB PO SCH (09:51)
[2020-02-14] MEDS: CHOLECALCIFEROL 1,000 UNITS 25 MCG TAB PO SCH (09:51)
[2020-02-14] MEDS: VITAMIN B COMPLEX TAB PO SCH (09:51)
[2020-02-14] MEDS: PANTOprazole 40 MG TAB PO SCH (09:51)
[2020-02-14] MEDS: ASPIRIN 81 MG ECTAB PO SCH (09:52)
[2020-02-14] MEDS: CALCIUM CARBONATE 1250MG TAB PO SCH (09:52)
--- NOTE | 2020-02-14 10:03 | Gastroenterology Progress Note ---
Date of Service February 14, 2020 Assessment & Plan (1) Acute cholecystitis: (2) Elevated LFTs: Pt is a 89 y/o male, who presented w confusion, n/v, abd pain and diarrhea; abd imaging studies & labs concerning for cholecystitis w possible biliary obstruction & cholangitis. He underwent ERCP on 02/13 w choledocholithiasis removal, biliary sphincterectomy and CBD stent placement; followed by cholecystectomy by Surgery. WBC, LFTs are improving, clinically doing well. - Antibx x 2 weeks - Trend LFTs - Diet as tolerated - Will schedule f/u ERCP in 4-6 week's time to remove biliary stent. - GI to sign off; pls recall prn Admission and Anticipated Discharge Date Admission Date: February 12, 2020 Supervising Physician Co-Signing Physician Notes I saw and evaluated the patient. He looks significantly improved after his ERCP yesterday and his cholecystectomy. Recommendations Would complete a 14-day course of antibiotics Repeat ERCP in 6 weeks for biliary stent removal Please call with any questions or concerns GI to sign off Subjective Pt doing well, not having much abd pain, no n/v, tolerating solid breakfast today and is passing flatus. Noted WBC, LFTs are improving Review of Systems Review of Systems: All systems reviewed & are unremarkable except as noted in HPI & below Physical Exam Constitutional: WD/WN, vitals as above well groomed, cooperative and comfortable Eyes: PERRL, conjunctivae normal, anicteric sclerae ENMT: external ear and nose normal, oropharynx normal Respiratory: normal respiratory effort, lungs clear to auscultation Cardiovascular: RRR, no murmur, no edema Gastrointestinal (Abdomen): ZULLY drain to R abd area w sangenous fluid; surgical dressing over abd area CDI. Abd mildly distended, slight TTP on palpation, BS present Skin: no rashes, warm and dry Psychiatric: A+Ox3, euthymic affect Lymphatic: no lymphedema Results & Data ([place]) Vital Signs (Past 12 Hours) Vital Signs Temp Pulse Resp BP Pulse Ox 02/14/20 07:52 36.7 C 62 16 113/51 L 91 02/14/20 04:03 36.7 C 61 20 149/66 H 91 02/13/20 23:18 36.7 C 62 18 127/55 L 98
--- NOTE | 2020-02-14 13:07 | Hospitalist Progress Note ---
Date of Service February 14, 2020 Assessment & Plan (1) Acute cholecystitis: (1) Acute cholecystitis: Patient with leukocytosis in excess of 28,000. CT findings and ultrasound findings concerning for acute cholecystitis with pericholecystic fluid and gallbladder wall thickening. Patient presented with confusion from earlier today. Likely indicative of underlying infection. Thankfully, patient without any profound hemodynamic compromise at this point. Initially received Mefoxin in the emergency department, transitioned to cefepime and Flagyl since admission (PCN allergy) ERCP on 02/[address] Becerra, stent placed that will need repeat ERCP in 6 weeks for d/c stent s/p lap larissa on 02/[address] Jiménez ongoing abx as per their service Anticoagulation as per gen surg (2) Confusion: Extensive evaluation performed in the emergency department. No focal neurological deficits on exam and imaging studies without acute findings. Patient with likely degree of encephalopathy from underlying cholecystitis alone. Continue to monitor for any neurological changes as patient is with recent TIA in the last 8 months. CTA head/neck neg for acute (3) NSTEMI (non-ST elevated myocardial infarction): Troponin of 0.110 on admission and essentially unchanged x3 total EKG demonstrates paced rhythm without other ability to discern any ST changes. Will trend troponin. No complaints of chest pain or other sequela of ACS. Likely demand in the setting of acute cholecystitis. Cardiology is following (4) Depression: Continue home medications as prescribed. (5) Coronary artery disease: Will continue home medications. Certainly concerning with elevated troponin in this patient. Please see above NSTEMI recommendations. (6) Hyperglycemia: PSG's per unit protocol. (7) Hypertension: Continue home medications as tolerated. Would be cautious with providing home meds if moderate drop in blood pressure appreciated secondary to patient's underlying infection and concern for progression to sepsis. (8) Sleep related hypoxia: Supplemental oxygen as needed. (2) DVT prophylaxis: SCDs given OR status (3) BPH (benign prostatic hyperplasia): Has been taking tamsulosin for several years without improvement in sx Increase dosing to 0.8mg on d/c Admission and Anticipated Discharge Date Admission Date: February 12, 2020 Subjective Pt states he feels much better. He has minor abd pain related to his incisions, but feels it is manageable. No further n/v. He does feel a bit distended. Tolerating PO without issue. No bowel movement yet today. States he generally goes every day without issue. Does not feel constipated. Pt denies fever, SOB, chest pain, LE pain or swelling. He states he does not feel confused at all at this point. Pt notes that he is up every night to urinate 4-5x/night. This has been an ongoing issue for years. No issue with starting/stopping stream and feels he is emptying completely, but does feel it is small amounts each time. He follows with [facility] urology for BPH. He has been taking tamsulosin for many years a lso, but it has never helped with this issue. Pt reported to me that he is usually quite good with ambulation. However, nursing notes that pt is quite unsteady on his feet. He apparently told nursing that he has been having balance issues. Review of Systems Review of Systems: Pertinent positives and negatives reviewed in HPI--all others negative Physical Exam Constitutional: WD/WN, vitals as above Eyes: normal visual andino by confrontation and + anicteric sclerae Neck: normal visual inspection and trachea midline Respiratory: normal respiratory effort, lungs clear to auscultation Cardiovascular: Rate/Rhythm: regular rate and regular rhythm Gastrointestinal (Abdomen): Inspection/Auscultation: + abdomen distended (mild) Percussion/Palpation: abdomen soft Musculoskeletal: Head/Neck/Chest: normocephalic and head atraumatic Skin: no rashes, warm and dry Neurologic: awake; not confused Speech / Cognition: normal speech Psychiatric: A+Ox3, euthymic affect Results & Data Results & Data ([facility]) Vital Signs (Past 12 Hours) Vital Signs Temp Pulse Pulse Resp BP Pulse Ox 02/14/20 12:42 36.8 C 62 20 98/46 L 96 02/14/20 08:00 62 02/14/20 07:52 36.7 C 62 16 113/51 L 91 02/14/20 04:03 36.7 C 61 20 149/66 H 91 PG Care Time/CCT Total # of Minutes Spent Total Time Spent with Patient: Total time spent is greater than 50% in coordination of care (as documented) at patient's floor/unit and/or counseling patient: Coding Level of Care Code 01546 Subseq Hosp Care Lvl 3 Diagnoses Acute cholecystitis K81.0 DVT prophylaxis Z29.9 BPH (benign prostatic hyperplasia) N40.0
--- NOTE | 2020-02-14 13:56 | Cardiology Progress Note ---
Date of Service February 14, 2020 Assessment & Plan (1) Acute cholecystitis: (2) Cerebral vascular disease: (3) Coronary artery disease: (4) PAD (peripheral artery disease): (5) Sick sinus syndrome: (6) Sleep related hypoxia: (7) Carotid stenosis: (8) Troponin level elevated: (9) Preop cardiovascular exam: Patient tolerated surgery well without any postoperative complications. Now doing well clinically. No cardiac complications and remains symptom-free from a cardiac standpoint. At this point would restart outpatient oral medical regimen. Okay to DC telemetry from a cardiac standpoint. Admission and Anticipated Discharge Date Admission Date: February 12, 2020 Subjective Patient seen and examined, chart reviewed. Tolerated surgery well without any complications. Currently states that he feels great. Some slight abdominal discomfort at the incision site otherwise without issue. States he does have a good appetite. Denies chest pain, shortness of breath, palpitations, lightheadedness, dizziness or syncope. Telemetry reviewed: Ventricularly paced rhythm. Review of Systems Review of Systems: All systems reviewed & are unremarkable except as noted in HPI & below Physical Exam Physical Exam: General: Awake, alert and oriented x 3. No acute distress. HEENT: Normocephalic, atraumatic. Pupils equal, round and reactive to light and accommodation. Extraocular muscles are intact. Anicteric sclera. Moist mucous membranes. Neck: No JVD. No bruit. Cardiovascular: Regular. Positive S-4. Normal S-1 and S-2. No S-3. 3/6 mid to late systolic ejection murmur, greatest at the right sternal border, second intercostal space with radiation to the bilateral carotids. No rubs. Pulmonary: Clear to auscultation bilaterally. No rales, rhonchi, or wheezing. Abdomen: Bowel sounds x 4, soft. No rebound, guarding or tenderness. No organomegaly. Extremities: No clubbing, cyanosis or edema. +2 pedal pulses bilaterally. Skin: Warm and dry. Results & Data ([facility]) Vital Signs (Past 12 Hours) Vital Signs Temp Pulse Pulse Resp BP Pulse Ox 02/14/20 12:42 36.8 C 62 20 98/46 L 96 02/14/20 08:00 62 02/14/20 07:52 36.7 C 62 16 113/51 L 91 02/14/20 04:03 36.7 C 61 20 149/66 H 91
[2020-02-14] MEDS: TAMSULOSIN HCL 0.4 MG CAP PO SCH (17:32)
[2020-02-15] MEDS: metroNIDAZOLE 500 MG/100 ML BAG IV SCH ×3 (05:40→20:59)
--- NOTE | 2020-02-15 08:09 | Surgery Progress Note ---
Date of Service February 15, 2020 Assessment & Plan (1) Status post laparoscopic cholecystectomy: Patient is sitting in his chair eating breakfast Minimal drainage and vital signs are stable Using minimal pain medication Continue IV antibiotics for at least 1-2 more days and then p.o. for a week Can move to the regular nursing floor-med/surg if okay with the medical team Admission and Anticipated Discharge Date Admission Date: February 12, 2020 Results & Data ([facility]) Vital Signs (Past 12 Hours) Vital Signs Temp Pulse Resp BP Pulse Ox 02/15/20 07:53 60 20 117/51 L 92 02/15/20 03:56 36.6 C 89 20 115/53 L 90 02/14/20 23:00 36.8 C 60 26 H 115/49 L 95 PG Care Time/CCT Total # of Minutes Spent Total Time Spent with Patient: Total time spent is greater than 50% in coordination of care (as documented) at patient's floor/unit and/or counseling patient: Coding Level of Care Code None Diagnoses Status post laparoscopic cholecystectomy Z90.49
[2020-02-15] MEDS: CEFEPIME 2,000 MG in SYRINGE 0 ML IV SCH ×2 (08:13→20:52)
[2020-02-15] MEDS: DOCUSATE SODIUM/SENNA 50/8.6MG TAB PO SCH ×2 (08:14→21:07)
[2020-02-15] MEDS: SODIUM CHLORIDE 0.9% 1000ML 1,000 ML IV SCH ×2 (08:14→10:12)
[2020-02-15] MEDS: ISOSORBIDE MONO EXTENDED REL 30 MG TABCR PO SCH (08:15)
[2020-02-15] MEDS: ATORVASTATIN 40 MG TAB PO SCH (08:15)
[2020-02-15] MEDS: COMPOUNDED EYE OPL SCH (08:15)
[2020-02-15] MEDS: VITAMIN B COMPLEX TAB PO SCH (08:16)
[2020-02-15] MEDS: CHOLECALCIFEROL 1,000 UNITS 25 MCG TAB PO SCH (08:16)
[2020-02-15] MEDS: METOPROLOL TARTRATE 25 MG TAB PO SCH ×2 (08:16→21:07)
[2020-02-15] MEDS: PANTOprazole 40 MG TAB PO SCH (08:17)
[2020-02-15] MEDS: ASPIRIN 81 MG ECTAB PO SCH (08:17)
[2020-02-15] MEDS: amLODIPine BESYLATE 5 MG TAB PO SCH (08:18)
[2020-02-15] MEDS: CALCIUM CARBONATE 1250MG TAB PO SCH (08:19)
[2020-02-15] MEDS: ESCITALOPRAM OXALATE 10 MG TAB PO SCH (08:20)
--- NOTE | 2020-02-15 13:01 | Cardiology Progress Note ---
Date of Service February 15, 2020 Assessment & Plan (1) Acute cholecystitis: (2) Cerebral vascular disease: (3) Coronary artery disease: (4) PAD (peripheral artery disease): (5) Sick sinus syndrome: (6) Sleep related hypoxia: (7) Carotid stenosis: (8) Troponin level elevated: (9) Preop cardiovascular exam: Patient tolerated surgery well without any postoperative complications. Now doing well clinically. No cardiac complications and remains symptom-free from a cardiac standpoint. Has been restarted on outpatient medical regimen and tolerating well. Okay to DC telemetry from a cardiac standpoint. Admission and Anticipated Discharge Date Admission Date: February 12, 2020 Subjective Patient seen and examined, chart reviewed. Out of bed in chair states he feels well. Still with a little abdominal discomfort but denies any other complaints of chest pain, shortness of breath, palpitations, lightheadedness, dizziness or syncope. Telemetry reviewed: Ventricularly paced rhythm. Review of Systems Review of Systems: All systems reviewed & are unremarkable except as noted in HPI & below Physical Exam Physical Exam: General: Awake, alert and oriented x 3. No acute distress. HEENT: Normocephalic, atraumatic. Pupils equal, round and reactive to light and accommodation. Extraocular muscles are intact. Anicteric sclera. Moist mucous membranes. Neck: No JVD. No bruit. Cardiovascular: Regular. Positive S-4. Normal S-1 and S-2. No S-3. 3/6 mid to late systolic ejection murmur, greatest at the right sternal border, second intercostal space with radiation to the bilateral carotids. No rubs. Pulmonary: Clear to auscultation bilaterally. No rales, rhonchi, or wheezing. Abdomen: Bowel sounds x 4, soft. No rebound, guarding or tenderness. No organomegaly. Extremities: No clubbing, cyanosis or edema. +2 pedal pulses bilaterally. Skin: Warm and dry. Results & Data ([facility]) Vital Signs (Past 12 Hours) Vital Signs Temp Pulse Resp BP Pulse Ox 02/15/20 11:43 36.6 C 64 20 129/62 97 02/15/20 07:53 60 20 117/51 L 92 02/15/20 03:56 36.6 C 89 20 115/53 L 90
[2020-02-15] MEDS ORDERED: MAGNESIUM HYDROXIDE SUSP 30 ML UDC PO PRN (13:59)
[2020-02-15] MEDS ORDERED: MAGNESIUM HYDROXIDE SUSP 30 ML UDC PO ONE (13:59)
--- NOTE | 2020-02-15 15:21 | Hospitalist Progress Note ---
Date of Service February 15, 2020 Assessment & Plan (1) Acute cholecystitis: (1) Acute cholecystitis: Pt presented to the ED with AMS and sepsis related to acute cholecystitis Patient with leukocytosis in excess of 28,000. CT findings and ultrasound findings concerning for acute cholecystitis with pericholecystic fluid and gallbladder wall thickening. Patient presented with confusion from earlier today. Likely indicative of underlying infection. Thankfully, patient without any profound hemodynamic compromise at this point. Initially received Mefoxin in the emergency department, transitioned to cefepime and Flagyl since admission (PCN allergy) ERCP on 02/[address] Becerra, stent placed that will need repeat ERCP in 6 weeks for d/c stent s/p lap larissa on 02/[address] Jiménez Plans for 1-2 more days of IV abx, then 7 days of PO Anticoagulation as per gen surg (2) Confusion: Now resolved Extensive evaluation performed in the emergency department. No focal neurological deficits on exam and imaging studies without acute findings. Patient with likely degree of encephalopathy from underlying cholecystitis alone. Continue to monitor for any neurological changes as patient is with recent TIA in the last 8 months. CTA head/neck neg for acute (3) NSTEMI (non-ST elevated myocardial infarction): Troponin of 0.110 on admission and essentially unchanged x3 total EKG demonstrates paced rhythm without other ability to discern any ST changes. Will trend troponin. No complaints of chest pain or other sequela of ACS. Likely demand in the setting of acute cholecystitis. Cardiology is following (4) Depression: Continue home medications as prescribed. (5) Coronary artery disease: Will continue home medications. Certainly concerning with elevated troponin in this patient. Please see above NSTEMI recommendations. (6) Hyperglycemia: PSG's per unit protocol. (7) Hypertension: Continue home medications as tolerated. Would be cautious with providing home meds if moderate drop in blood pressure appreciated secondary to patient's underlying infection and concern for progression to sepsis. (8) Sleep related hypoxia: Supplemental oxygen as needed. (2) BPH (benign prostatic hyperplasia): Has been taking tamsulosin for several years without improvement in sx Increase dosing to 0.8mg on d/c (3) DVT prophylaxis: SCDs given OR status Pt is stable for transfer to floor. Some issue with [employer] is not allowing for this, however their service department is working to resolve Nursing aware of issues and that pt can be transferred. Admission and Anticipated Discharge Date Admission Date: February 12, 2020 Subjective Pt was just finishing with PT when I arrived. He feels tired after this. Reported to have done well from therapist. He has been eating without issue. Still no bowel movement. Feels distended. Pt denies fever, SOB, chest pain, abd pain, n/v, LE pain or swelling. Review of Systems Review of Systems: Pertinent positives and negatives reviewed in HPI--all others negative Physical Exam Constitutional: WD/WN, vitals as above Eyes: normal visual andino by confrontation and + anicteric sclerae Neck: normal visual inspection and trachea midline Respiratory: normal respiratory effort, lungs clear to auscultation Cardiovascular: Rate/Rhythm: regular rate and regular rhythm Gastrointestinal (Abdomen): Inspection/Auscultation: + abdomen distended (increased from yesterday) Percussion/Palpation: abdomen soft Musculoskeletal: Head/Neck/Chest: normocephalic and head atraumatic Skin: no rashes, warm and dry Neurologic: awake; not confused Speech / Cognition: normal speech Psychiatric: A+Ox3, euthymic affect Results & Data Results & Data ([facility]) Vital Signs (Past 12 Hours) Vital Signs Temp Pulse Pulse Resp BP Pulse Ox 02/15/20 15:16 36.6 C 64 21 117/59 L 93 02/15/20 14:01 63 02/15/20 11:43 36.6 C 64 20 129/62 97 02/15/20 07:53 60 20 117/51 L 92 02/15/20 03:56 36.6 C 89 20 115/53 L 90 PG Care Time/CCT Total # of Minutes Spent Total Time Spent with Patient: Total time spent is greater than 50% in coordination of care (as documented) at patient's floor/unit and/or counseling patient: Coding Level of Care Code 94195 Subseq Hosp Care Lvl 3 Diagnoses Acute cholecystitis K81.0 BPH (benign prostatic hyperplasia) N40.0 DVT prophylaxis Z29.9
[2020-02-15] MEDS: TAMSULOSIN HCL 0.4 MG CAP PO SCH (17:37)
[2020-02-15] MEDS: ACETAMINOPHEN 325 MG TAB PO PRN (23:42)
[2020-02-16] MEDS: metroNIDAZOLE 500 MG/100 ML BAG IV SCH ×3 (04:19→20:38)
[2020-02-16] MEDS: COMPOUNDED EYE OPL SCH (09:00)
[2020-02-16] MEDS: ISOSORBIDE MONO EXTENDED REL 30 MG TABCR PO SCH (09:15)
[2020-02-16] MEDS: METOPROLOL TARTRATE 25 MG TAB PO SCH ×2 (09:15→20:20)
[2020-02-16] MEDS: VITAMIN B COMPLEX TAB PO SCH (09:15)
[2020-02-16] MEDS: PANTOprazole 40 MG TAB PO SCH (09:16)
[2020-02-16] MEDS: amLODIPine BESYLATE 5 MG TAB PO SCH (09:16)
[2020-02-16] MEDS: CALCIUM CARBONATE 1250MG TAB PO SCH (09:17)
[2020-02-16] MEDS: ASPIRIN 81 MG ECTAB PO SCH (09:17)
[2020-02-16] MEDS: ESCITALOPRAM OXALATE 10 MG TAB PO SCH (09:18)
[2020-02-16] MEDS: ATORVASTATIN 40 MG TAB PO SCH (09:20)
[2020-02-16] MEDS: CHOLECALCIFEROL 1,000 UNITS 25 MCG TAB PO SCH (09:20)
[2020-02-16] MEDS: DOCUSATE SODIUM/SENNA 50/8.6MG TAB PO SCH ×2 (09:27→20:20)
[2020-02-16] MEDS: CEFEPIME 2,000 MG in SYRINGE 0 ML IV SCH ×2 (09:28→20:21)
--- NOTE | 2020-02-16 11:08 | Surgery Progress Note ---
Date of Service February 16, 2020 Assessment & Plan (1) Status post laparoscopic cholecystectomy: Patient is doing well tolerating regular diet, starting to have + bowel function VSS and patient afebrile ZULLY drain with minimal drainage and is serosanguineous pt is debating on going to rehab vs home upon discharge plan to keep ZULLY drain in at time of discharge and to complete a course of oral abx follow up with Dr. Jiménez next week dispo planning per medicine Admission and Anticipated Discharge Date Admission Date: February 12, 2020 Supervising Physician Co-Signing Physician Notes Covering for Dr. Jiménez, patient seen and examined, agree with above. Status post laparoscopic cholecystectomy and ERCP for choledocholithiasis and gangrenous ch olecystitis. Doing well, good return of bowel function. Tolerating regular diet. Afebrile with stable vitals, abdomen soft, appropriate tender to palpation. ZULLY drain serosanguineous. Plan for discharge to acute rehab facility tomorrow, keep ZULLY drain in until sees Dr. Jiménez next week. Complete course of antibiotics. Call with questions or concerns Subjective Patient states he is feeling well, getting better each day. Has been tolerating a regular diet without nausea/vomiting. Has some incisional pain with movement, but otherwise is manageable. He is passing gas and BM's. Physical Exam Physical Exam: awake/alert Respiratory: normal respiratory effort Gastrointestinal (Abdomen): Inspection/Auscultation: + abdominal surgical incision (c/d/i with surgical dressings overtop) and + abdominal surgical drain present (serosang. ) Percussion/Palpation: abdomen soft Results & Data ([facility]) Vital Signs (Past 12 Hours) Vital Signs Temp Pulse Resp BP Pulse Ox 02/16/20 09:10 64 135/54 L 02/16/20 06:59 37.1 C 62 16 140/67 93 02/16/20 03:32 60 18 91 PG Care Time/CCT Total # of Minutes Spent Total Time Spent with Patient: Total time spent is greater than 50% in coordination of care (as documented) at patient's floor/unit and/or counseling patient: Coding Level of Care Code None Diagnoses Status post laparoscopic cholecystectomy Z90.49
[2020-02-16] MEDS ORDERED: ENOXAPARIN INJ 40 MG/0.4 ML SYR SQ ONE (13:32)
--- NOTE | 2020-02-16 13:32 | Hospitalist Progress Note ---
Date of Service February 16, 2020 Assessment & Plan (1) Acute cholecystitis: (1) Acute cholecystitis: The patient underwent ERCP with common bile duct stent placement followed by laparoscopic cholecystectomy. Postoperative day #3. Postoperative drain remains in place. He is now on cefepime and Flagyl. He is making steady progress. No current complications. ERCP on 02/[address] Becerra, stent placed that will need repeat ERCP in 6 weeks for d/c stent s/p lap larissa on 02/[address] Jiménez (2) metabolic encephalopathy: Now resolved. (3) NSTEMI (non-ST elevated myocardial infarction): Ruled out. Mild troponin elevation on admission without trending, no chest pain, no acute EKG changes. Appreciate cardiology consultation. (4) Depression: Stable. Medical management. (5) Coronary artery disease: Stable. Continue current medical management. (6) Hyperglycemia: Transient. No history of type 2 diabetes. Use sliding scale insulin coverage as needed. (7) Hypertension: Stable. Continue current medications. (8) Sleep related hypoxia: Supplemental oxygen as needed. (2) BPH (benign prostatic hyperplasia): Flomax therapy. (3) DVT prophylaxis: Lovenox subcu Admission and Anticipated Discharge Date Admission Date: February 12, 2020 Subjective Alert and pleasant. No complaints. Postoperative drain remains in place. Postoperative day #3. Encephalopathy has completely resolved. He remains on cefepime and Flagyl and will switch to oral antibiotics at discharge. Probable discharge to [facility] this weekend. Review of Systems Review of Systems: Constitutional-no fever or chills ENT-no blurred vision, no double vision, no epistaxis, no sore throat Respiratory-no cough, no wheezing, no shortness of breath Cardiac-no palpitations, no chest pain, no syncope GI-no nausea, vomiting, diarrhea, melena, hematochezia -no urinary retention, no urinary incontinence, no dysuria, no hematuria Musculoskeletal-no joint pain, no muscle tenderness Skin-no bruising, no rashes, no pruritus Neuro-no isolated weakness, no paresthesia, no weakness Psych-no depression, no anxiety Physical Exam Physical Exam: General-alert and oriented x3, no fevers, no chills HEENT-head atraumatic and normocephalic, TMs intact bilaterally, pupils equal and reactive to light, extraocular muscles intact Neck-no lymphadenopathy or thyromegaly, trachea midline Chest-clear to auscultation percussion. No rales wheezing or rhonchi Cardiac-regular rate and rhythm, normal S1 and S2, no murmurs Abdomen-normal bowel sounds, mildly distended , no hepatosplenomegaly Extremities-no cyanosis, clubbing, or edema Neuro-cranial nerves II through XII intact, motor and sensory function within normal limits, strength symmetrical 5/5, no focal deficits Psych-normal affect, normal mood Results & Data Results & Data ([facility]) Vital Signs (Past 12 Hours) Vital Signs Temp Pulse Resp BP Pulse Ox 02/16/20 09:10 64 135/54 L 02/16/20 06:59 37.1 C 62 16 140/67 93 02/16/20 03:32 60 18 91 Laboratory Results 02/14/20 05:16 02/14/20 05:16 PG Care Time/CCT Total # of Minutes Spent Total Time Spent with Patient: Total time spent is greater than 50% in coordination of care (as documented) at patient's floor/unit and/or counseling patient: Coding Level of Care Code 88347 Subseq Hosp Care Lvl 3 Diagnoses Acute cholecystitis K81.0 BPH (benign prostatic hyperplasia) N40.0 DVT prophylaxis Z29.9
[2020-02-16] MEDS: TAMSULOSIN HCL 0.4 MG CAP PO SCH (16:57)
[2020-02-16] MEDS: ACETAMINOPHEN 325 MG TAB PO PRN (19:27)
[2020-02-17] MEDS: ACETAMINOPHEN 325 MG TAB PO PRN (05:13)
[2020-02-17] MEDS: metroNIDAZOLE 500 MG/100 ML BAG IV SCH ×3 (05:15→20:17)
--- NOTE | 2020-02-17 08:32 | Surgery Progress Note ---
Date of Service February 17, 2020 Assessment & Plan (1) Status post laparoscopic cholecystectomy: 89-year-old male status post laparoscopic cholecystectomy, doing well. Okay for discharge from general surgery standpoint Continue ZULLY drain, patient will follow up with Dr. Jiménez next week for removal Complete course of oral antibiotics Dr. Patel covering over the weekend Admission and Anticipated Discharge Date Admission Date: February 12, 2020 Subjective 89-year-old male POD #4 status post laparoscopic cholecystectomy and ERCP for choledocholithiasis and gangrenous cholecystitis. Overall doing well, still some soreness in his abdomen but this is improving. He is tolerating regular diet. Physical Exam Constitutional: WD/WN, vitals as above Gastrointestinal (Abdomen): Inspection/Auscultation: + abdominal surgical incision (Dressings clean dry and intact, no evidence of infection) and + abdominal surgical drain present (ZULLY drain with minimal serosanguineous drainage) Percussion/Palpation: + abdomen tender (Appropriately tender to palpation) Results & Data ([facility]) Vital Signs (Past 12 Hours) Vital Signs Temp Pulse Resp BP Pulse Ox 02/17/20 07:19 36.9 C 60 16 145/69 H 93 02/16/20 22:53 37.2 C 66 14 166/77 H 93 PG Care Time/CCT Total # of Minutes Spent Total Time Spent with Patient: Total time spent is greater than 50% in coordination of care (as documented) at patient's floor/unit and/or counseling patient: Coding Level of Care Code None Diagnoses Status post laparoscopic cholecystectomy Z90.49
[2020-02-17] MEDS: COMPOUNDED EYE OPL SCH (08:40)
[2020-02-17] MEDS: CHOLECALCIFEROL 1,000 UNITS 25 MCG TAB PO SCH (08:41)
[2020-02-17] MEDS: METOPROLOL TARTRATE 25 MG TAB PO SCH ×2 (08:41→20:21)
[2020-02-17] MEDS: amLODIPine BESYLATE 5 MG TAB PO SCH (08:42)
[2020-02-17] MEDS: ATORVASTATIN 40 MG TAB PO SCH (08:42)
[2020-02-17] MEDS: VITAMIN B COMPLEX TAB PO SCH (08:42)
[2020-02-17] MEDS: CEFEPIME 2,000 MG in SYRINGE 0 ML IV SCH ×2 (08:43→21:24)
[2020-02-17] MEDS: ENOXAPARIN INJ 40 MG/0.4 ML SYR SQ SCH (08:44)
[2020-02-17] MEDS: ESCITALOPRAM OXALATE 10 MG TAB PO SCH (08:45)
[2020-02-17] MEDS: PANTOprazole 40 MG TAB PO SCH (08:45)
[2020-02-17] MEDS: ISOSORBIDE MONO EXTENDED REL 30 MG TABCR PO SCH (08:46)
[2020-02-17] MEDS: ASPIRIN 81 MG ECTAB PO SCH (08:46)
[2020-02-17] MEDS: CALCIUM CARBONATE 1250MG TAB PO SCH (08:46)
[2020-02-17] MEDS: DOCUSATE SODIUM/SENNA 50/8.6MG TAB PO SCH ×2 (08:47→20:25)
[2020-02-17 09:46] LABS: Basophils # (auto) 0.05 K/uL (0-0.2); Basophils % (auto) 0.3 %; Eosinophils # (auto) 0.46 K/uL (0-0.5); Eosinophils % (auto) 3.2 %; Hematocrit (blood only) 37.6 % (42-52); Hemoglobin 11.7 g/dL (14.0-18.0); Immature Granulocytes # (auto) 0.67 K/uL (0.00-0.02); Immature Granulocytes % (auto) 4.6 %; Lymphocytes # (auto) 1.98 K/uL (1.2-3.4); Lymphocytes % (auto) 13.7 %; Mean Corpuscular Hemoglobin 28.6 pg (25-34); Mean Corpuscular Hgb Conc 31.1 g/dL (32-36); Mean Corpuscular Volume 91.9 fL (80-100); Mean Platelet Volume 12.1 fL (7.4-10.4); Monocytes # (auto) 1.57 K/uL (0.11-0.59); Monocytes % (auto) 10.8 %; Neutrophils # (auto) 9.77 K/uL (1.4-6.5); Neutrophils % (auto) 67.4 %; Platelet Count 200 K/uL (130-400); RDW Coefficient of Variation 14.1 % (11.5-14.5); RDW Standard Deviation 47.7 fL (36.4-46.3); Red Blood Count 4.09 M/uL (4.7-6.1)
--- NOTE | 2020-02-17 09:46 | XRay Report ---
XR chest 1V portable CLINICAL HISTORY: hypoxia COMPARISON STUDY: 02/12/2020 FINDINGS: The heart is borderline enlarged. There is a left subclavian dual-chamber central venous pa cemaker. There are small bilateral pleural effusions. There is diffuse interstitial thickening. While likely congestive failure/fluid overload, a bilateral interstitial infectious/inflammatory processes could appear similar IMPRESSION: 1. Diffuse interstitial thickening. While likely representing congestive failure/fluid overload, a bi lateral interstitial infectious/inflammatory process could appear similar. 2. Small bilateral pleural effusions ACT 112: Negative or not required by law. Electronically signed by: Kanu Khalil M.D. 02/17/2020 9:45 AM
[2020-02-17 10:05] LABS: BUN Creatinine Ratio 19.7 (10-20); Calcium 8.3 mg/dl (8.5-10.1); Creatinine Clr Calc Pharmacy 53.9 ml/min; Est GFR (African American) 70.2; Est GFR (Non-African American) 60.5; Potassium 4.1 mmol/L (3.5-5.1)
[2020-02-17] MEDS ORDERED: FUROSEMIDE 40 MG in SYRINGE 0 ML IV ONE (12:15)
--- NOTE | 2020-02-17 13:25 | Hospitalist Progress Note ---
Date of Service February 17, 2020 Assessment & Plan (1) Acute cholecystitis: (1) Acute cholecystitis: The patient underwent ERCP with common bile duct stent placement followed by laparoscopic cholecystectomy. Postoperative day #4. Postoperative drain remains in place. He is now on cefepime and Flagyl. He is making steady progress. No current complications. ERCP on 02/[address] Becerra, stent placed that will need repeat ERCP in 6 weeks for d/c stent s/p lap larissa on 02/[address] Jiménez (2) metabolic encephalopathy: Now resolved. (3) NSTEMI (non-ST elevated myocardial infarction): Ruled out. Mild troponin elevation on admission without trending, no chest pain, no acute EKG changes. Appreciate cardiology consultation. (4) Depression: Stable. Medical management. (5) Coronary artery disease: Stable. Continue current medical management. (6) Hyperglycemia: Transient. No history of type 2 diabetes. Use sliding scale insulin coverage as needed. (7) Hypertension: Stable. Continue current medications. (8) Sleep related hypoxia: Supplemental oxygen as needed. (2) Fluid overload: Noted on chest x-ray today, February 16. IV Lasix diuresis x1 dose today. Monitor response. He may need further diuresis tomorrow. Present on Admission?: No (3) BPH (benign prostatic hyperplasia): Flomax therapy. (4) DVT prophylaxis: Lovenox subcu Disposition: Probable discharge to SNF facility for continued physical therapy and strengthening prior to returning home. Admission and Anticipated Discharge Date Admission Date: February 12, 2020 Subjective Somnolent but easily arousable and conversant. Chest x-ray shows some evidence of fluid overload. Will diurese with 1 dose of Lasix today and determine if he needs any further diuresis tomorrow. Otherwise he appears stable. Post operative day #4. Review of Systems Review of Systems: Constitutional-no fever or chills ENT-no blurred vision, no double vision, no epistaxis, no sore throat Respiratory-no cough, no wheezing, no shortness of breath Cardiac-no palpitations, no chest pain, no syncope GI-no nausea, vomiting, diarrhea, melena, hematochezia -no urinary retention, no urinary incontinence, no dysuria, no hematuria Musculoskeletal-no joint pain, no muscle tenderness Skin-no bruising, no rashes, no pruritus Neuro-generalized weakness Psych-no depression, no anxiety Physical Exam Physical Exam: General-alert and oriented x3, no fevers, no chills HEENT-head atraumatic and normocephalic, TMs intact bilaterally, pupils equal and reactive to light, extraocular muscles intact Neck-no lymphadenopathy or thyromegaly, trachea midline Chest-clear to auscultation percussion. No rales wheezing or rhonchi Cardiac-regular rate and rhythm, normal S1 and S2, no murmurs Abdomen-normal bowel sounds, mildly distended , no hepatosplenomegaly Extremities-no cyanosis, clubbing, or edema Neuro-cranial nerves II through XII intact, generalized weakness, no focal deficits Psych-normal affect, normal mood Results & Data Results & Data ([facility]) Vital Signs (Past 12 Hours) Vital Signs Temp Pulse Resp BP Pulse Ox Pulse Ox 02/17/20 11:16 96 02/17/20 08:41 71 02/17/20 07:19 36.9 C 60 16 145/69 H 93 Laboratory Results 02/17/20 09:28 02/17/20 09:28 PG Care Time/CCT Total # of Minutes Spent Total Time Spent with Patient: Total time spent is greater than 50% in coordination of care (as documented) at patient's floor/unit and/or counseling patient: Coding Level of Care Code 93450 Subseq Hosp Care Lvl 3 Diagnoses Acute cholecystitis K81.0 Fluid overload E87.70 BPH (benign prostatic hyperplasia) N40.0 DVT prophylaxis Z29.9
[2020-02-17] MEDS: TAMSULOSIN HCL 0.4 MG CAP PO SCH (17:29)
[2020-02-18] MEDS: ACETAMINOPHEN 325 MG TAB PO PRN (00:31)
[2020-02-18] MEDS: metroNIDAZOLE 500 MG/100 ML BAG IV SCH ×3 (05:15→21:12)
[2020-02-18 06:55] LABS: Hematocrit (blood only) 40.1 % (42-52); Hemoglobin 12.8 g/dL (14.0-18.0); Mean Corpuscular Hemoglobin 29.2 pg (25-34); Mean Corpuscular Hgb Conc 31.9 g/dL (32-36); Mean Corpuscular Volume 91.3 fL (80-100); Mean Platelet Volume 12.2 fL (7.4-10.4); Platelet Count 222 K/uL (130-400); RDW Coefficient of Variation 13.9 % (11.5-14.5); RDW Standard Deviation 47.1 fL (36.4-46.3); Red Blood Count 4.39 M/uL (4.7-6.1); White Blood Count 16.23 K/uL (4.8-10.8)
[2020-02-18 07:23] LABS: Basophils % (auto) 0.6 %; Eosinophils # (auto) 0.37 K/uL (0-0.5); Eosinophils % (auto) 2.3 %; Immature Granulocytes # (auto) 0.94 K/uL (0.00-0.02); Immature Granulocytes % (auto) 5.8 %; Lymphocytes # (auto) 2.62 K/uL (1.2-3.4); Lymphocytes % (auto) 16.1 %; Monocytes # (auto) 2.03 K/uL (0.11-0.59); Monocytes % (auto) 12.5 %; Neutrophils # (auto) 10.17 K/uL (1.4-6.5); Neutrophils % (auto) 62.7 %
[2020-02-18 07:30] LABS: BUN Creatinine Ratio 17.9 (10-20); Calcium 8.3 mg/dl (8.5-10.1); Creatinine Clr Calc Pharmacy 58.2 ml/min; Est GFR (Non-African American) 66.4; Potassium 3.9 mmol/L (3.5-5.1)
[2020-02-18] MEDS: COMPOUNDED EYE OPL SCH (08:11)
[2020-02-18] MEDS: CHOLECALCIFEROL 1,000 UNITS 25 MCG TAB PO SCH (08:12)
[2020-02-18] MEDS: ATORVASTATIN 40 MG TAB PO SCH (08:12)
[2020-02-18] MEDS: ASPIRIN 81 MG ECTAB PO SCH (08:13)
[2020-02-18] MEDS: ENOXAPARIN INJ 40 MG/0.4 ML SYR SQ SCH (08:13)
[2020-02-18] MEDS: VITAMIN B COMPLEX TAB PO SCH (08:14)
[2020-02-18] MEDS: CALCIUM CARBONATE 1250MG TAB PO SCH (08:14)
[2020-02-18] MEDS: amLODIPine BESYLATE 5 MG TAB PO SCH (08:14)
[2020-02-18] MEDS: ESCITALOPRAM OXALATE 10 MG TAB PO SCH (08:15)
[2020-02-18] MEDS: PANTOprazole 40 MG TAB PO SCH (08:15)
[2020-02-18] MEDS: ISOSORBIDE MONO EXTENDED REL 30 MG TABCR PO SCH (08:15)
[2020-02-18] MEDS: METOPROLOL TARTRATE 25 MG TAB PO SCH ×2 (08:16→20:40)
[2020-02-18] MEDS: CEFEPIME 2,000 MG in SYRINGE 0 ML IV SCH ×2 (08:26→21:12)
[2020-02-18] MEDS: DOCUSATE SODIUM/SENNA 50/8.6MG TAB PO SCH ×2 (08:26→20:40)
--- NOTE | 2020-02-18 08:34 | Surgery Progress Note ---
Date of Service February 18, 2020 Assessment & Plan (1) Status post laparoscopic cholecystectomy: Patient overall doing well from abdominal standpoint Tolerating a diet and pain is controlled Will leave ZULLY drain in at discharge, some scant bilious drainage noted this AM Complete a course of po abx at dispo Follow up with Dr. Jiménez next week Okay for discharge to SNF when medically stable Pt seen and examined with Dr. Patel Admission and Anticipated Discharge Date Admission Date: February 12, 2020 Subjective Patient states he is feeling pretty good. Tolerating diet. Reports his breathing is okay. He is passing BM's. Physical Exam Physical Exam: awake Constitutional: well developed and well nourished; no acute distress Gastrointestinal (Abdomen): Inspection/Auscultation: + abdominal surgical incision (c/d/i ) and + abdominal surgical drain present (bile tinged drainage noted in ZULLY today; minimal output) Percussion/Palpation: abdomen soft Results & Data ([facility]) Vital Signs (Past 12 Hours) Vital Signs Temp Pulse Resp BP BP Pulse Ox 02/18/20 07:07 36.8 C 62 18 148/69 H 95 02/18/20 00:03 36.6 C 68 14 147/63 H 93 PG Care Time/CCT Total # of Minutes Spent Total Time Spent with Patient: Total time spent is greater than 50% in coordination of care (as documented) at patient's floor/unit and/or counseling patient: Coding Level of Care Code None Diagnoses Status post laparoscopic cholecystectomy Z90.49
--- NOTE | 2020-02-18 12:43 | Hospitalist Progress Note ---
Date of Service February 18, 2020 Assessment & Plan (1) Acute cholecystitis: (1) Acute cholecystitis: The patient underwent ERCP with common bile duct stent placement followed by laparoscopic cholecystectomy on 02/12 ERCP on 02/[address] Becerra, stent placed that will need repeat ERCP in 6 weeks for d/c stent s/p lap larissa on 02/[address] Jiménez cefepime and Flagyl started on admission, plans to convert to cipro x5 days WBC improving (2) metabolic encephalopathy: Now resolved. (3) NSTEMI (non-ST elevated myocardial infarction): Ruled out. Mild troponin elevation on admission without trending, no chest pain, no acute EKG changes. Appreciate cardiology consultation. (4) Depression: Stable. Medical management. (5) Coronary artery disease: Stable. Continue current medical management. (6) Hyperglycemia: Transient. No history of type 2 diabetes. Use sliding scale insulin coverage as needed. (7) Hypertension: Stable. Continue current medications. (8) Sleep related hypoxia: Supplemental oxygen as needed. (2) Fluid overload: Noted on chest x-ray today, February 16. IV Lasix diuresis x1 dose today. Monitor response. He may need further diuresis tomorrow. (3) BPH (benign prostatic hyperplasia): Flomax therapy. (4) DVT prophylaxis: Lovenox subcu Disposition: Awaiting d/c to [facility], no beds currently Surgery requests f/u this coming week Admission and Anticipated Discharge Date Admission Date: February 12, 2020 Subjective Pt continues to feel overall improved, but not at his baseline. He has been walking with PT and feels this is better. Tolerating PO, but appetite is still low. Has had a few bowel movements, last was yesterday. Feels his abd is still distended, but better. Pt denies fever, SOB, chest pain, abd pain, n/v, LE pain or swelling. Review of Systems Review of Systems: Pertinent positives and negatives reviewed in HPI--all others negative Physical Exam Constitutional: WD/WN, vitals as above Eyes: normal visual andino by confrontation and + anicteric sclerae Neck: normal visual inspection and trachea midline Respiratory: normal respiratory effort, lungs clear to auscultation Cardiovascular: Rate/Rhythm: regular rate and regular rhythm Gastrointestinal (Abdomen): Inspection/Auscultation: + abdomen distended (decreased from prior) Percussion/Palpation: abdomen soft Musculoskeletal: Head/Neck/Chest: normocephalic and head atraumatic Skin: no rashes, warm and dry Neurologic: awake; not confused Speech / Cognition: normal speech Psychiatric: A+Ox3, euthymic affect Results & Data Results & Data ([facility]) Vital Signs (Past 12 Hours) Vital Signs Temp Pulse Resp BP Pulse Ox 02/18/20 07:07 36.8 C 62 18 148/69 H 95 PG Care Time/CCT Total # of Minutes Spent Total Time Spent with Patient: Total time spent is greater than 50% in coordination of care (as documented) at patient's floor/unit and/or counseling patient: Coding Level of Care Code 76544 Subseq Hosp Care Lvl 3 Diagnoses Acute cholecystitis K81.0 Fluid overload E87.70 BPH (benign prostatic hyperplasia) N40.0 DVT prophylaxis Z29.9
[2020-02-18] MEDS: TAMSULOSIN HCL 0.4 MG CAP PO SCH (17:50)
[2020-02-19] MEDS: metroNIDAZOLE 500 MG/100 ML BAG IV SCH (04:53)
[2020-02-19 06:27] LABS: Hemoglobin 12.6 g/dL (14.0-18.0); Mean Corpuscular Hemoglobin 28.4 pg (25-34); Mean Corpuscular Hgb Conc 31.5 g/dL (32-36); Mean Corpuscular Volume 90.3 fL (80-100); Mean Platelet Volume 12.6 fL (7.4-10.4); Platelet Count 254 K/uL (130-400); RDW Coefficient of Variation 13.9 % (11.5-14.5); RDW Standard Deviation 46.4 fL (36.4-46.3); Red Blood Count 4.43 M/uL (4.7-6.1); White Blood Count 17.78 K/uL (4.8-10.8)
[2020-02-19 07:03] LABS: BUN Creatinine Ratio 19.3 (10-20); Calcium 8.2 mg/dl (8.5-10.1); Creatinine Clr Calc Pharmacy 60.7 ml/min; Est GFR (African American) 80.9; Est GFR (Non-African American) 69.8
[2020-02-19 07:27] LABS: Basophils # (auto) 0.08 K/uL (0-0.2); Basophils % (auto) 0.4 %; Eosinophils # (auto) 0.44 K/uL (0-0.5); Eosinophils % (auto) 2.5 %; Immature Granulocytes # (auto) 1.36 K/uL (0.00-0.02); Immature Granulocytes % (auto) 7.6 %; Lymphocytes % (auto) 15.7 %; Monocytes # (auto) 2.31 K/uL (0.11-0.59); Neutrophils # (auto) 10.79 K/uL (1.4-6.5); Neutrophils % (auto) 60.8 %
[2020-02-19] MEDS: COMPOUNDED EYE OPL SCH (09:48)
[2020-02-19] MEDS ORDERED: SIMETHICONE 80 MG CHEW PO PRN (09:48)
[2020-02-19] MEDS: ENOXAPARIN INJ 40 MG/0.4 ML SYR SQ SCH (09:49)
[2020-02-19] MEDS: METOPROLOL TARTRATE 25 MG TAB PO SCH ×2 (09:49→20:38)
[2020-02-19] MEDS: ESCITALOPRAM OXALATE 10 MG TAB PO SCH (09:49)
[2020-02-19] MEDS: CALCIUM CARBONATE 1250MG TAB PO SCH (09:50)
[2020-02-19] MEDS: ATORVASTATIN 40 MG TAB PO SCH (09:50)
[2020-02-19] MEDS: CHOLECALCIFEROL 1,000 UNITS 25 MCG TAB PO SCH (09:50)
[2020-02-19] MEDS: VITAMIN B COMPLEX TAB PO SCH (09:50)
[2020-02-19] MEDS: ASPIRIN 81 MG ECTAB PO SCH (09:50)
[2020-02-19] MEDS: PANTOprazole 40 MG TAB PO SCH (09:51)
[2020-02-19] MEDS: amLODIPine BESYLATE 5 MG TAB PO SCH (09:51)
[2020-02-19] MEDS: DOCUSATE SODIUM/SENNA 50/8.6MG TAB PO SCH ×2 (09:51→20:57)
[2020-02-19] MEDS: ISOSORBIDE MONO EXTENDED REL 30 MG TABCR PO SCH (09:51)
[2020-02-19] MEDS ORDERED: SIMETHICONE 80 MG CHEW PO ONE (10:00)
[2020-02-19] MEDS: CEFEPIME 2,000 MG in SYRINGE 0 ML IV SCH (10:30)
--- NOTE | 2020-02-19 12:56 | Hospitalist Progress Note ---
Date of Service February 19, 2020 Assessment & Plan (1) Acute cholecystitis: (1) Acute cholecystitis: The patient underwent ERCP with common bile duct stent placement followed by laparoscopic cholecystectomy on 02/12 ERCP on 02/[address] Becerra, stent placed that will need repeat ERCP in 6 weeks for d/c stent s/p lap larissa on 02/[address] Jiménez cefepime and Flagyl started on admission, plans to convert to cipro x5 days WBC improving Blood cx Add simethicone for ongoing abd distention (2) metabolic encephalopathy: Now resolved. (3) NSTEMI (non-ST elevated myocardial infarction): Ruled out. Mild troponin elevation on admission without trending, no chest pain, no acute EKG changes. Appreciate cardiology consultation. (4) Depression: Stable. Medical management. (5) Coronary artery disease: Stable. Continue current medical management. (6) Hyperglycemia: Transient. No history of type 2 diabetes. Use sliding scale insulin coverage as needed. (7) Hypertension: Stable. Continue current medications. (8) Sleep related hypoxia: Supplemental oxygen as needed. (2) Fluid overload: Noted on chest x-ray today, February 16. IV Lasix diuresis x1 dose today. Monitor response. He may need further diuresis tomorrow. (3) BPH (benign prostatic hyperplasia): Flomax therapy. (4) DVT prophylaxis: Lovenox subcu Disposition: Awaiting d/c to [facility], no beds currently Surgery requests f/u this coming week Pt does have glasses at bedside, son was concerned that they might be missing Admission and Anticipated Discharge Date Admission Date: February 12, 2020 Subjective Pt states he had a bowel movement yesterday. Not yet today though. Still with low appetite and improving but present abd distention. Pt denies fever, SOB, chest pain, n/v/c/d, LE pain or swelling. Pt has his glasses, but states that since his cataract surgery recently, they have made things blurry, so he has not been wearing them. Review of Systems Review of Systems: Pertinent positives and negatives reviewed in HPI--all others negative Physical Exam Constitutional: WD/WN, vitals as above Eyes: normal visual andino by confrontation and + anicteric sclerae Neck: normal visual inspection and trachea midline Respiratory: normal respiratory effort, lungs clear to auscultation Cardiovascular: Rate/Rhythm: regular rate and regular rhythm Gastrointestinal (Abdomen): Inspection/Auscultation: + abdomen distended (decreased from prior) Percussion/Palpation: abdomen soft Musculoskeletal: Head/Neck/Chest: normocephalic and head atraumatic Skin: no rashes, warm and dry Neurologic: awake; not confused Speech / Cognition: normal speech Psychiatric: A+Ox3, euthymic affect Results & Data Results & Data ([facility]) Vital Signs (Past 12 Hours) Vital Signs Temp Pulse Resp BP Pulse Ox 02/19/20 07:28 36.4 C L 66 16 158/69 H 94 PG Care Time/CCT Total # of Minutes Spent Total Time Spent with Patient: Total time spent is greater than 50% in coordination of care (as documented) at patient's floor/unit and/or counseling patient: Coding Level of Care Code 64758 Subseq Hosp Care Lvl 2 Diagnoses Acute cholecystitis K81.0 Fluid overload E87.70 BPH (benign prostatic hyperplasia) N40.0 DVT prophylaxis Z29.9
[2020-02-19] MEDS: TAMSULOSIN HCL 0.4 MG CAP PO SCH (17:41)
[2020-02-19] MEDS: LACTOBACILLUS ACIDOPHILUS 1 GM PACK PO SCH (17:41)
[2020-02-19] MEDS: CIPROFLOXACIN 500 MG TAB PO SCH (20:39)
[2020-02-20 06:23] LABS: Hematocrit (blood only) 38.1 % (42-52); Hemoglobin 12.4 g/dL (14.0-18.0); Mean Corpuscular Hemoglobin 29.1 pg (25-34); Mean Corpuscular Hgb Conc 32.5 g/dL (32-36); Mean Corpuscular Volume 89.4 fL (80-100); Mean Platelet Volume 12.5 fL (7.4-10.4); Platelet Count 272 K/uL (130-400); RDW Standard Deviation 46.3 fL (36.4-46.3); Red Blood Count 4.26 M/uL (4.7-6.1)
[2020-02-20 06:59] LABS: Basophils # (auto) 0.08 K/uL (0-0.2); Basophils % (auto) 0.6 %; Eosinophils # (auto) 0.51 K/uL (0-0.5); Eosinophils % (auto) 3.5 %; Immature Granulocytes # (auto) 1.42 K/uL (0.00-0.02); Immature Granulocytes % (auto) 9.8 %; Lymphocytes # (auto) 2.34 K/uL (1.2-3.4); Lymphocytes % (auto) 16.1 %; Monocytes # (auto) 2.06 K/uL (0.11-0.59); Monocytes % (auto) 14.2 %; Neutrophils # (auto) 8.09 K/uL (1.4-6.5); Neutrophils % (auto) 55.8 %
--- NOTE | 2020-02-20 08:23 | Surgery Progress Note ---
Date of Service February 20, 2020 Assessment & Plan (1) Acute cholecystitis: Present the patient is awaiting long-term placement for rehab he has been on antibiotics for approximately 7 days and surgery I would only continue with 3 more days pending the amount of drainage in the right upper quadrant Carlos drain may be able to be removed prior to discharge Admission and Anticipated Discharge Date Admission Date: February 12, 2020 Subjective Feels fine with no complaints awaiting placement Tolerating diet and moving her bowels Physical Exam Physical Exam: Alert coherent laying comfortable in bed The abdomen is completely benign The Carlos drainage is minimal coffee-ground at most slightly bilious Results & Data ([facility]) Vital Signs (Past 12 Hours) Vital Signs Temp Pulse Resp BP Pulse Ox 02/20/20 06:39 36.8 C 60 17 160/70 H 93 02/19/20 23:06 36.8 C 65 19 157/68 H 94 02/19/20 20:30 64 146/64 H PG Care Time/CCT Total # of Minutes Spent Total Time Spent with Patient: Total time spent is greater than 50% in coordination of care (as documented) at patient's floor/unit and/or counseling patient: Coding Level of Care Code None Diagnoses Acute cholecystitis K81.0
--- NOTE | 2020-02-20 09:00 | Hospitalist Progress Note ---
Date of Service February 20, 2020 Assessment & Plan Admission and Anticipated Discharge Date Admission Date: February 12, 2020 Results & Data Results & Data ([facility]) Vital Signs (Past 12 Hours) Vital Signs Temp Pulse Resp BP Pulse Ox 02/20/20 06:39 36.8 C 60 17 160/70 H 93 02/19/20 23:06 36.8 C 65 19 157/68 H 94 Laboratory Results 02/20/20 Range/Units 05:28 WBC 14.50 H (4.8-10.8) K/uL RBC 4.26 L (4.7-6.1) M/uL Hgb 12.4 L (14.0-18.0) g/dL Hct 38.1 L (42-52) % MCV 89.4 (80-100) fL MCH 29.1 (25-34) pg MCHC 32.5 (32-36) g/dL RDW Std Deviation 46.3 (36.4-46.3) fL RDW Coeff of Jose 14.0 (11.5-14.5) % Plt Count 272 (130-400) K/uL MPV 12.5 H (7.4-10.4) fL Immature Gran % (Auto) 9.8 % Neut % (Auto) 55.8 % Lymph % (Auto) 16.1 % [place] % (Auto) 14.2 % Eos % (Auto) 3.5 % Baso % (Auto) 0.6 % Neut # (Auto) 8.09 H (1.4-6.5) K/uL Lymph # (Auto) 2.34 (1.2-3.4) K/uL [place] # (Auto) 2.06 H (0.11-0.59) K/uL Eos # (Auto) 0.51 H (0-0.5) K/uL Baso # (Auto) 0.08 (0-0.2) K/uL Immature Gran # (Auto) 1.42 H (0.00-0.02) K/uL PG Care Time/CCT Total # of Minutes Spent Total Time Spent with Patient: Total time spent is greater than 50% in coordination of care (as documented) at patient's floor/unit and/or counseling patient: Coding
[2020-02-20] MEDS: LACTOBACILLUS ACIDOPHILUS 1 GM PACK PO SCH ×2 (09:53→12:12)
[2020-02-20] MEDS: ENOXAPARIN INJ 40 MG/0.4 ML SYR SQ SCH (09:54)
[2020-02-20] MEDS: ASPIRIN 81 MG ECTAB PO SCH (09:54)
[2020-02-20] MEDS: METOPROLOL TARTRATE 25 MG TAB PO SCH (09:54)
[2020-02-20] MEDS: COMPOUNDED EYE OPL SCH (09:54)
[2020-02-20] MEDS: ISOSORBIDE MONO EXTENDED REL 30 MG TABCR PO SCH (09:54)
[2020-02-20] MEDS: CIPROFLOXACIN 500 MG TAB PO SCH (09:54)
[2020-02-20] MEDS: ATORVASTATIN 40 MG TAB PO SCH (09:54)
[2020-02-20] MEDS: ESCITALOPRAM OXALATE 10 MG TAB PO SCH (09:54)
[2020-02-20] MEDS: amLODIPine BESYLATE 5 MG TAB PO SCH (09:55)
[2020-02-20] MEDS: CALCIUM CARBONATE 1250MG TAB PO SCH (09:55)
[2020-02-20] MEDS: PANTOprazole 40 MG TAB PO SCH (09:55)
[2020-02-20] MEDS: DOCUSATE SODIUM/SENNA 50/8.6MG TAB PO SCH (09:55)
[2020-02-20] MEDS: CHOLECALCIFEROL 1,000 UNITS 25 MCG TAB PO SCH (09:56)
[2020-02-20] MEDS: VITAMIN B COMPLEX TAB PO SCH (09:56)
--- NOTE | 2020-02-20 11:18 | Discharge Summary ---
Date of Service February 20, 2020 Admission HPI Per Admitting Provider Primary Care Provider: Aly Bowling MD Patient is an 89-year-old male with an extensive past medical history including nocturnal hypoxemia, sick sinus syndrome status post pacemaker placement, peripheral arterial disease, hypertension, hyperlipidemia, GERD, coronary artery disease, history of recent TIA, anxiety. Patient was brought to the emergency department via EMS secondary to concerns for confusion as well as possible new TIA. Per emergency department provider, the patient initially provided minimal historical information. In conversation with the patient's , she is reports the patient complained of nausea, vomiting, and diarrhea yesterday. Patient was able to tolerate a meal of cereal last evening. Upon awakening this morning, was concerned for confusion and a possible LEFT-sided facial droop. This was not present on exam in the emergency department. reports that the patient has been weak. She reports that he has slumped off of the bed x2 last evening. Extensive evaluation in the emergency department included CT of the head as well as CTA of the head and neck with only finding of 60% stenosis of the LEFT ICA. Chest x-ray demonstrated mild findings of pulmonary edema. Troponin was elevated as well as white blood cell count. After further assessment, CT of the abdomen pelvis was obtained which showed concerning findings for pericholecystic fluid. Patient was covered with Mefoxin and general surgery was consulted. Upon evaluation in the emergency department, the patient is awake and alert. He is pleasant, but does seem to downplay symptoms. He does admit that he has been experiencing some abdominal pain. He states that he did not feel confused today and reports remembering the events. He states the only reason that he came is because of his . He remembers having nausea and vomiting as well as diarrhea yesterday. He denies any of those symptoms at this point. Patient is wearing oxygen, but admits to using this at nighttime to sleep. He reports feeling no shortness of breath. He denies any fevers or chills. He reports no recent sick contacts including concerns for COVID-19 positive individuals. Patient reports feeling hungry, but otherwise offers no complaints. Specifically, the patient denies any headaches, dizziness, lightheadedness, chest pain, palpitations, shortness of breath, pleuritic pain, hemoptysis, abdominal pain, hematochezia, melena, hematuria, or dysuria. Admission Exam Per Admitting Provider VITAL SIGNS - Vital signs and nursing notes were reviewed. GENERAL - 89-year-old male appearing his stated age who is in no acute distress. Communicates well with provider and answers questions appropriately. HEAD - NC/AT. EYES - PERRL with EOMI bilaterally. Sclera anicteric. Palpebral conjunctiva pink and moist with no injection noted. EARS - No deformities of external structures noted on gross examination bilaterally. NOSE - Midline and without cyanosis. No epistaxis or purulent drainage noted. Septum midline without deviation or septal hematoma noted. MOUTH/OROPHARYNX - Without perioral cyanosis. Buccal mucosa pink and moist and without leukoplakia. NECK - Neck with FROM. Supple to palpation. No nuchal rigidity. LUNGS - Chest wall symmetric without accessory muscle use, intercostals retractions, or central cyanosis. Normal vesicular breath sounds CTA B/L. No wheezes, rales, or rhonchi appreciated. CARDIAC - RRR with S1/S2. No murmur, rubs, or gallops appreciated. ABDOMEN - Abdominal contour flat without pulsations or visible masses. Negative Humza's or Perez Kothari's Signs. BS normoactive all four quadrants. Moderate tenderness to palpation appreciated in the RUQ. Mild guarding. No Rebound Tenderness. Negative Vovsing's. POSITIVE Talavera's. No palpable masses, hepatosplenomegaly, or ascites noted. EXTREMITIES - No clubbing or peripheral cyanosis. No pretibial edema present. +3/5 radial and dorsalis pedis pulses palpated throughout. +5/5 strength noted in UE/LE bilaterally. NEUROLOGIC - Cranial nerves II through XII grossly intact. Sensory intact to light touch throughout. PSYCH - A&Ox3 and cooperates fully with examiner. Pt is very pleasant and interacts well with examiner. Principal Diagnosis Acute Shiloh Discharge Exam Constitutional WD/WN, vitals as above Eyes + anicteric sclerae and PERRL ENMT Ears: no hearing impairment Nose: no external nose abnormality Neck normal visual inspection and trachea midline Respiratory normal respiratory effort, lungs clear to auscultation Auscultation: + diminished lung sounds (bases) Cardiovascular RRR, no murmur, no edema Gastrointestinal (Abdomen) Inspection/Auscultation: normal bowel sounds Percussion/Palpation: + abdomen tender (minimally at incision-- ZULLY with scant billious drainage noted) and abdomen soft; no guarding and abdomen not rigid Musculoskeletal no cyanosis or clubbing, extremities motor strength 5/5 Skin warm, dry Neurologic PERRL, EOMI, accommodation nl, no face palsy, no dysarthria Psychiatric A+Ox3, euthymic affect Lymphatic no cervical or axillary lymphadenopathy Discharge Data Allergies Allergy/AdvReac Type Severity Reaction Status Date / Time clavulanic acid Allergy Unknown UNKNOWN Verified 02/12/20 12:08 Sulfa (Sulfonamide Allergy Unknown Unknown Verified 02/12/20 12:08 Antibiotics) amoxicillin AdvReac Intermediate NAUSEA Verified 02/12/20 12:08 Penicillins AdvReac Intermediate NAUSEA/VOMI Verified 02/12/20 12:08 TING Consultations 02/12/20 16:05 Consult General Surgery Stat 02/12/20 16:24 ED Decision to Admit Stat 02/12/20 19:31 Consult Cardiology Routine 02/13/20 08:38 Consult Gastroenterology Stat 02/13/20 15:19 Consult Case Management - Discharge Planning Routine Procedures Performed Operation Date: 02/13/20 12:00 Actual Procedures p Laparoscopic Cholecystectomy(Not Applicable) - Bahman Jiménez MD, FACS s Endoscopic Retrograde Cholangiopancreatography in Operating Room(Not Applicable) - Chuckie Becerra, Ordered Studies 02/12/20 11:52 CT angio head w con Stat CT angio neck with con Stat 02/12/20 11:53 CT head/brain wo con Stat 02/12/20 14:08 CT abd pelvis wo con Stat 02/12/20 16:40 US gallbladder Urgent 02/13/20 12:18 FL ERCP biliary ductal Routine Hospital Course (1) Acute cholecystitis: (1) Acute cholecystitis: The patient underwent ERCP with common bile duct stent placement followed by laparoscopic cholecystectomy on 02/12 ERCP on 02/[address] Becerra, stent placed that will need repeat ERCP in 6 weeks for d/c stent s/p lap shiloh on 02/[address] Jiménez cefepime and Flagyl started on admission, plans to convert to cipro x5 days WBC improving Blood cx NGTD Added simethicone for ongoing abd distention To continue ZULLY drain until seen by Dr. Jiménez in follow up within this week to prevent leak/complication To have f/u ERCP 4-[address] Becerra Continued Cipro for total treatment duration 14 days (10 per surgery but increased length to 14 days per GI rec) (2) metabolic encephalopathy: Now resolved. (3) NSTEMI (non-ST elevated myocardial infarction): Cardiology consulted Troponin trended down-- secondary to demand in acute infection Ruled out. No chest pain, no acute EKG changes. (4) Depression: Stable. Medical management. Continued home medications (5) Coronary artery disease: Stable. Continued home medication regimen (6) Hyperglycemia: Transient. No history of type 2 diabetes. Use sliding scale insulin coverage as needed. (7) Hypertension: Stable. Continued current medications. (8) Sleep related hypoxia: Supplemental oxygen as needed. Would benefit from outpt sleep study/CPAP if able to tolerate (2) Fluid overload: Noted on chest x-ray today, February 16. IV Lasix diuresis x1 dose 02/18 and additional 40mg PO on 02/19 with improvement on imaging. Patient stable on RA and denied SOB Follow up with PCP (3) BPH (benign prostatic hyperplasia): Flomax therapy. (4) DVT prophylaxis: Lovenox subcu while inpatient Discharged to [facility]. Maintain ZULLY until f/u with surgery Total Time Total Time Spent Total Time Spent (In Minutes): 90 Discharge Plan Discharge Items Patient Disposition: Transfer Inpatient Rehab Fac Reason For Visit: SHILOH, NSTEMI Discharge Diagnosis: Acute Cholecystitis Condition on Discharge: Good Goals: You have been hospitalized for an urgent problem which required surgery. During your stay at [facility], we have made an effort to correct the problem that brought you to the hospital while keeping you as comfortable as possible. Surgery and medications were used to bring your condition under control and your discharge instructions will include directions for any medications you should take after leaving the hospital. Please make sure to follow the advice of your surgeon regarding follow up with the surgeon and with your primary care provider. Activity: As commented below Activity Comment: advance with therapy at rehab Non-emergency contact: Primary Care Provider and Surgeon Call non-emergency contact if: you have any medication questions, your symptoms worsen and your pain is not controlled Follow-up/Referrals: Aly Bowling MD [Primary Care Provider] - Bahman Jiménez MD, FACS [Physician] - (1 week) Chuckie Becerra DO [Physician] - (4-6 weeks) Diet: Heart Healthy Addtl Attending Provider Instructions: SPECIAL CARE INSTRUCTIONS: * Cover incisions and change daily for comfort/drainage. * Empty drain 2-3 times per day and record. * May use ibuprofen for pain as tolerated. * Expect some swelling and bruising. Call your doctor if: * Temperature above 101 degrees * Pain not relieved by pain medicine ordered * There is increased drainage or redness from any incision * You have any unanswered questions or concerns [phone]. FOLLOW UP VISIT: If not already scheduled, please call the office for a follow-up visit next week. OFFICE PHONE NUMBER: Dr. Jiménez Office Add Lead Advisor Provider Instructions: You have been hospitalized for acute cholecystitis and were taken to the OR for a stent and laparoscopic removal of your gallbladder by Dr. Jiménez. You are to continue antibiotics for another 7 days to complete course. This is Ciprofloxacin 500mg by mouth TWICE daily for another 7 DAYS. Per discussion with Dr. Patel, you are to keep drain in to prevent complications and are to be seen by Dr. Jiménez next week to have this removed. You will also need follow up ERCP with GI for removal of your biliary stent ni 4-6 weeks as an outpatient. Your pain has been well controlled and you have only utilized tylenol and can continue this as needed for pain. Your troponin was elevated (cardiac enzyme) and you were evaluated by cardiology, and NSTEMI was RULED OUT. Please follow up with Dr. Jiménez in [address] Parks in 4-6 weeks for stent removal. Continue to utilize oxygen at night for hypoxia, but would benefit from formal sleep study/possible CPAP if able to tolerate. Please return to the emergency department with any worsening pain, chest pain, shortness of breath, or for any other symptoms that are concerning for you. Follow up with PCP in 1 week to monitor progress. It has been a pleasure being a part of the medical team providing for you while you have been in the hospital. Take care! Pending Studies at Discharge: No Stand-Alone Forms: My [facility] Skilled Items Patient informed of condition?: Yes DNR: No Discharge Level of Care: Acute rehab Communicable Disease: No Discharge Prognosis: Improving Lines: None Urinary Catheter: No Medications and DC Order Prescriptions: New ciprofloxacin HCl 500 mg tablet 500 mg PO BID 7 Days Qty: 14 RF: 0 Continued fluticasone propionate [Allergy Relief (fluticasone)] 50 mcg/actuation spray,suspension 1 sprays INTNAS DAILY PRN (Reason: allergy symptoms) Qty: 18.2 RF: 2 omeprazole 20 mg capsule,delayed release(DR/EC) 20 mg PO DAILY Qty: 90 RF: 3 escitalopram oxalate 10 mg tablet 15 mg PO DAILY Qty: 135 RF: 3 tamsulosin 0.4 mg capsule 0.4 mg PO DAILY Qty: 90 RF: 3 meclizine 25 mg tablet 25 mg PO DAILY PRN (Reason: dizzyness) RF: 0 alprazolam [Xanax] 0.25 mg tablet 0.25 mg PO DAILY PRN (Reason: Anxiety) RF: 0 metoprolol tartrate 25 mg tablet 25 mg PO BID RF: 0 glucosamine HCl 1,500 mg tablet 1,500 mg PO DAILY RF: 0 coenzyme Q10 200 mg capsule 200 mg PO DAILY RF: 0 B Complex Plus Vitamin C [id number] mg capsule 1 cap PO DAILY RF: 0 cholecalciferol (vitamin D3) 1,000 unit capsule 1,000 units PO DAILY RF: 0 turmeric root extract 500 mg capsule 500 mg PO DAILY RF: 0 amlodipine 2.5 mg tablet 2.5 mg PO DAILY RF: 0 isosorbide mononitrate 30 mg Tablet Extended Release 24 Hr 30 mg PO DAILY RF: 0 calcium citrate 250 mg calcium Tablet 500 mg PO DAILY RF: 0 atorvastatin 40 mg Tablet 40 mg PO QAM Qty: 32 RF: 4 aspirin 81 mg Tablet,Delayed Release (Dr/Ec) 81 mg PO QAM Qty: 32 RF: 4 Discharge Orders: Discharge Order (Routine); Ordered 02/20/20 Ordered By: Halle Bill/Other Patient Handouts: DVT Post Op Prevention, Discharge Instructions Caring for ... Admission Data Admit Date/Time: 02/12/20 17:52 Attending Provider: Maggie Buchanan Admit Provider: Daniel Ambriz Primary Care Provider: Aly Bowling Other Providers: Bahman Jiménez ; Daniel Ambriz ; Joe Leonard ; Gerhard Garcia ; Eleuterio Ward ; Daniel Carolina ; Apolinar Chaudhari ; Hever Ventura ; Jeanette Lloyd ; Kayleen Sharma ; Franklyn Ferrer ; Chuckie Becerra ; [facility] Other Interventions: Discharge Summary Assessment (RN) Last Done: 02/20/20 11:13 Supervising Physician Co-Signing Physician Notes [facility] Supervision Note: I personally saw and examined the patient. I verified all bustos points and agree with [facility] Farley with the following exceptions and/or additions: Patient feeling well, minimal abdominal pain, he is tolerating a diet. ZULLY drain remains in place. Denies chest pain or shortness of breath. Is off oxygen. Vitals reviewed Gen: AAOx3, NAD HEENT: Anicteric sclerae, EOMI CV: RRR no mgr nl S1S2 Pulm: CTAB no wcr Abd: +BS soft NT ND no masses or hernias, incisional sites with Steri-Strips in place, ZULLY drain in place draining scant serosanguineous fluid Ext: No edema Skin: No rashes, warm/dry Neuro: Full strength throughout This patient is an 89-year-old male here with acute calculus cholecystitis with choledocholithiasis. Status post ERCP with CBD stent which needs removal in 6 weeks Status post cholecystectomy Continue antibiotics for 1 more week as above Stable for discharge to rehab Coding Level of Care Code D/C Day Management >30 mins Diagnoses Acute cholecystitis K81.0 Fluid overload E87.70 BPH (benign prostatic hyperplasia) N40.0 DVT prophylaxis Z29.9
--- NOTE | 2020-02-20 11:20 | XRay Report ---
XR chest 1V portable HISTORY: Shortness of breath. f/u fluid overload COMPARISON: Chest 02/17/2020. FINDINGS: No pneumothorax. Mild interstitial thickening has improved consistent with resolving pulmon rekha edema. Small bilateral pleural effusions and bibasilar densities persist. There is left-sided maximino l-chamber pacemaker. IMPRESSION: 1. Interval improvement in the pulmonary edema. 2. Small bilateral pleural effusions and bibasilar densities persist. ACT 112: Negative or not required by law. Electronically signed by: Darrel Contreras M.D. 02/20/2020 11:19 AM
[2020-02-20] MEDS ORDERED: FUROSEMIDE 40 MG TAB PO ONE (11:24)
[2020-02-20 11:54] LABS: BUN Creatinine Ratio 17.4 (10-20); Calcium 8.1 mg/dl (8.5-10.1); Creatinine Clr Calc Pharmacy 64.7 ml/min; Est GFR (African American) 87.5; Est GFR (Non-African American) 75.5; Potassium 4.1 mmol/L (3.5-5.1)
--- NOTE | 2020-02-21 23:17 | Discharge Summary (DS) ---
PRINCIPAL DIAGNOSES: Cholangitis with sepsis, choledocholithiasis, cholelithiasis, and acute necrotizing cholecystitis. PROCEDURES: The patient underwent ERCP with stone removal and stent placement and then also laparoscopic cholecystectomy with drain placement. HISTORY OF PRESENT ILLNESS AND HOSPITAL COURSE: The patient is an 89-year-old male presenting to the Emergency Room on 02/12/2020 with some evidence of confusion and on workup, it was felt that the patient had severe acute cholecystitis and sepsis. He was planned for laparoscopic cholecystectomy and his liver function study is elevated indicating possible choledocholithiasis or common duct obstruction with cholangitis. On 02/13/2020, he was taken to the operating room where he did undergo ERCP by Dr. Becerra with stone removal and stent placement and then also laparoscopic cholecystectomy showing severe necrotizing cholecystitis with drain placement at that time. During his perioperative evaluation, he did have an elevation of his troponin and was evaluated and seen and followed closely by cardiology. The patient had very slow progress. I believe he would require extended care and did require additional days in the hospital, but was felt stable for discharge on 02/20/2020. The patient was discharged to [facility] facility and did have a ZULLY drain in place to be removed this week. He was also maintained on oral antibiotics.
--- NOTE | 2020-02-23 12:55 | Coding Query ---
To promote full compliance with coding requirements relating to patient care, provider participation is requested in all cases of exploitation analyst uncertainty. Please assist us with the question(s) below: Coding Question(s): The diagnosis below was documented sporadically by Dr. Jiménez. Please indicate if it is a possible diagnosis or ruled out. Physician's Response(s): SEPSIS ( x ) Diagnosed and POA ( ) Diagnosed and not POA ( ) Ruled out ( ) Other (please specify) MTDD
== END 2020-02-20 12:34 | DRG 853 ==
LOC: ED 11:10 → 1E 17:52 → SUATTDRO 17:52 → 1E 19:00 → 3W 02-15 16:36